=== PATIENT | male | born 1985 | race Caucasian/White ===

== ENCOUNTER 2016-12-14 10:49 | Emergency (ER) | payer OTHER ==
[~2016-12-14] VITALS: Ht 177.8 cm; Wt 72.3 kg
[2016-12-14 10:57] VITALS: TEMP 36.5; Ht 177.8 cm; Wt 72.3 kg
[2016-12-14] MEDS ORDERED: QUET1TAB32 PO (11:45)
[2016-12-14] MEDS ORDERED: BUPR-79 PO (11:45)
[2016-12-14] MEDS ORDERED: MoRPHine SULFATE 4 MG/ML 1 ML CARP\\VIAL IV STA ×2 (11:46→14:47)
[2016-12-14] MEDS ORDERED: ONDANSETRON INJ 2 MG/ML 2 ML VIAL IV STA (11:46)
[2016-12-14 11:49] LABS: URINE APPEARANCE CLEAR (CLEAR); URINE BILIRUBIN NEG (NEG); URINE COLOR YELLOW; URINE NITRITE NEG (NEG); URINE SPECIFIC GRAVITY 1.016 (1.000-1.030); UROBILINOGEN NEG (NEG); ZZUR CULT IF INDIC CLEAN CATCH NO
[2016-12-14 11:58] LABS: MANUAL MICROSCOPIC REQUIRED? NO; REVIEW REQ? NO
[2016-12-14] MEDS ORDERED: OPTIRAY 320 IV PRN (12:00)
[2016-12-14 12:01] LABS: HEMATOCRIT 41.3 % (42-52); MEAN CELL VOLUME 83.4 fL (80-100); MEAN CORPUSCULAR HEMOGLOBIN 30.3 pg (25-34); MEAN CORPUSCULAR HGB CONC 36.3 g/dl (32-36); MEAN PLATELET VOLUME 9.8 fL (7.4-10.4); PLATELET COUNT 215 K/uL (130-400); RED BLOOD COUNT 4.95 M/uL (4.7-6.1); WHITE BLOOD COUNT 5.02 K/uL (4.8-10.8)
[2016-12-14 12:20] LABS: BUN/CREATININE RATIO 20.9 (10-20); CREATININE 1.6 mg/dl (0.60-1.40); POTASSIUM 5.9 mmol/L (3.5-5.1)
[2016-12-14 12:21] VITALS: O2SAT 100
[2016-12-14 12:21] LABS: CALCIUM 9.8 mg/dl (8.5-10.1)
[2016-12-14] MEDS ORDERED: NURSING VERBAL MED ORDER ONE (12:30)
[2016-12-14 12:38] LABS: BASO % 0.2 %; BASO ABS # 0.01 K/uL (0-0.2); COMPLETE YES; EOS % 3.8 %; IG% 0.2 %; LYMPH ABS # 2.71 K/uL (1.2-3.4); MONO % 8.6 %; NEUT % 33.2 %
[2016-12-14] MEDS ORDERED: SODIUM CHLORIDE 0.9% 1000ML 1,000 ML IV ONE ×2 (12:45→15:00)
--- NOTE | 2016-12-14 14:31 | DIAGNOSTIC IMAGING REPORT ---
CT ABD/PELVIS IV AND ORAL CONT CLINICAL HISTORY: L sided abd pain COMPARISON STUDY: None. TECHNIQUE: Following the IV administration of 93 mL of Optiray-320, CT scan of the abdomen and pelvis was performed from the lung bases to the proximal femurs. Images are reviewed in the axial, sagittal, and coronal planes. IV contrast was administered without complication. CT DOSE: 295.20 mGy.cm FINDINGS: Lower chest: There are mild basilar atelectatic changes. Liver: The contrast-enhanced liver is normal in size, contour, and attenuation. There is no intrahepatic biliary ductal dilatation. The hepatic veins and portal veins are patent. Gallbladder: Unremarkable. Spleen: Normal in size and attenuation. Pancreas: Unremarkable. Adrenal glands: Unremarkable. Kidneys: There is symmetric renal cortical enhancement. The kidneys are normal in size without hydronephrosis. Bowel: There are no transition zones indicate bowel obstruction. There is no evidence of acute diverticulitis. The appendix is borderline thickened measuring 7 mm. The lumen contains contrast and there are no periappendiceal inflammatory changes. This study is felt to be negative for acute appendicitis. Peritoneum: There is no intraperitoneal free air or abdominal ascites. Vasculature: The abdominal aorta is normal in course and caliber. Adenopathy: There are mildly prominent ileocolic lymph nodes, likely reactive. Pelvic viscera: The bladder, and pelvic viscera are unremarkable. Skeletal structures: No destructive osseous lesions are seen. IMPRESSION: 1. No evidence of bowel obstruction. No evidence of free air 2. No evidence of acute appendicitis. No evidence of acute diverticulitis 3. Mildly prominent ileocolic lymph nodes likely reactive Electronically signed by: Marco Amato M.D. 12/14/2016 2:29 PM Dictated Date/Time: 12/14/2016 2:24 PM
[2016-12-14] MEDS ORDERED: ONDA4TAB46 PO (16:25)
[2016-12-14 16:36] VITALS: BP 100/62; PULSE 73; O2SAT 98
--- NOTE | 2016-12-14 19:53 | EMERGENCY ROOM VISIT NOTE ---
ED Visit Note First contact with patient: 11:32 Chief Complaint: Abdominal pain. History of Present Illness: Mr. Licona is a 31 year-old male who ambulates into the ED complaining of left sided periumbilical abdominal pain. Historically patient reports no significant past medical history or abdominal surgeries. Patient reports a acute onset of cramping pain just inferior and left lateral to the umbilicus that started approximately 7 days ago. Since that time the pain has been constant but has waxed and waned in intensity. He currently rates his discomfort 6/10. The pain is nonradiating. He has not identified any aggravating or alleviating factors related to the pain. He has not taken any medications for pain prior to arrival at the hospital. Associated with his pain he reports he has been nauseated and has had a few episodes of vomiting every day and early in the course of his pain he had a few episodes of brown watery stools. Patient denies fevers, chills, sweats, skin eruptions, skin color changes, upper respiratory tract symptoms, shortness of breath, chest pain, constipation , rectal bleeding, black/tarry stools, urinary symptoms, hematuria, back/flank pain. Review of Systems: As noted above in history of present illness. All body systems were reviewed and found to be negative as noted above. Past Medical History: Unspecified right hand surgery. Current Medications: Seroquel, Wellbutrin. Allergies to Medications: Patient denies. Social History: Patient is currently employed; he feels safe in his home environment; he admits to tobacco and alcohol use. Physical Examination: Vital Signs: Date Time Temp Pulse Resp B/P Pulse Ox O2 Delivery O2 Flow Rate FiO2 12/14/16 16:36 73 18 100/62 98 12/14/16 15:46 71 16 93/58 99 Room Air 12/14/16 15:03 74 16 103/64 99 Room Air 12/14/16 14:38 74 16 83/51 99 Room Air 12/14/16 13:52 76 16 97/59 97 Room Air 12/14/16 12:25 79 12/14/16 12:21 100 Room Air 12/14/16 12:19 67 19 94/61 100 Room Air 73 93/60 83 90/61 12/14/16 12:08 82 18 88/55 98 76/37 12/14/16 10:57 36.5 89 20 85/47 97 Room Air GENERAL: 31-year-old male in mild distress due to pain, nontoxic-appearing, afebrile and hemodynamically stable. NEUROLOGICAL: Awake, alert and oriented to person, place and time. Answering questions appropriately and following commands. Normal gait. Good hand eye coordination. SKIN: Warm, dry and pink. No soft tissue eruptions or trauma noted. HEENT: Atraumatic and normocephalic. PERRL. Sclera white and conjunctiva pink. Oral cavity moist and pink. Pharynx is nonerythematous or edematous. Speech normal. No lymphadenopathy. Trachea midline. No jugular venous distention. BACK: No tenderness over the bony spine. No CVA tenderness. THORAX: Lungs sounds are clear to auscultation and equal bilaterally with symmetrical chest wall. No wheezing, rales or rhonchi. No crepitus, tenderness , subcutaneous air or deformities noted. HEART: Regular rate and rhythm. No gallops, rubs or murmurs are appreciated. ABDOMEN: Flat and firm with mild tenderness just inferior to the umbilicus and in the left lower quadrant. Decreased bowel sounds in all quadrants. No guarding, rigidity or organomegaly. EXTREMITIES: Moves all extremities well on command and with purpose. All distal neurovascular statuses are intact and equal bilaterally. ED Course: Patient is assessed as noted above. Laboratory Testing: Test 12/14/16 11:35 12/14/16 11:50 Range/Units Urine Color YELLOW Urine Appearance CLEAR CLEAR Urine pH 5.0 4.5-7.5 Urine Specific [place] 1.016 1.000-1.030 Urine Protein NEG NEG Urine Glucose (UA) NEG NEG Urine Ketones NEG NEG Urine Occult Blood NEG NEG Urine Nitrite NEG NEG Urine Bilirubin NEG NEG Urine Urobilinogen NEG NEG Urine Leukocyte Esterase NEG NEG White Blood Count 5.02 4.8-10.8 K/uL Red Blood Count 4.95 4.7-6.1 M/uL Hemoglobin 15.0 14.0-18.0 g/dL Hematocrit 41.3 42-52 % Mean Corpuscular Volume 83.4 80-100 fL Mean Corpuscular Hemoglobin 30.3 25-34 pg Mean Corpuscular Hemoglobin Concent 36.3 32-36 g/dl Platelet Count 215 130-400 K/uL Mean Platelet Volume 9.8 7.4-10.4 fL Neutrophils (%) (Auto) 33.2 % Lymphocytes (%) (Auto) 54.0 % Monocytes (%) (Auto) 8.6 % Eosinophils (%) (Auto) 3.8 % Basophils (%) (Auto) 0.2 % Neutrophils # (Auto) 1.67 1.4-6.5 K/uL Lymphocytes # (Auto) 2.71 1.2-3.4 K/uL Monocytes # (Auto) 0.43 0.11-0.59 K/uL Eosinophils # (Auto) 0.19 0-0.5 K/uL Basophils # (Auto) 0.01 0-0.2 K/uL RDW Standard Deviation 37.9 36.4-46.3 fL RDW Coefficient of Variation 12.4 11.5-14.5 % Immature Granulocyte % (Auto) 0.2 % Immature Granulocyte # (Auto) 0.01 0.00-0.02 K/uL Sodium Level 130 136-145 mmol/L Potassium Level 5.9 3.5-5.1 mmol/L Chloride Level 97 98-107 mmol/L Carbon Dioxide Level 26 21-32 mmol/L Anion Gap 7.0 3-11 mmol/L Blood Urea Nitrogen 34 7-18 mg/dl Creatinine 1.60 0.60-1.40 mg/dl Est Creatinine Clear Calc Drug Dose 69.0 ml/min Estimated GFR () 66.0 Estimated GFR (Non- 57.0 BUN/Creatinine Ratio 20.9 10-20 Random Glucose 84 70-99 mg/dl Calcium Level 9.8 8.5-10.1 mg/dl Total Bilirubin 0.7 0.2-1 mg/dl Aspartate Amino Transf (AST/SGOT) 32 15-37 U/L Alanine Aminotransferase (ALT/SGPT) 30 12-78 U/L Alkaline Phosphatase 73 45-117 U/L Total Protein 8.2 6.4-8.2 gm/dl Albumin 4.1 3.4-5.0 gm/dl Globulin 4.1 2.5-4.0 gm/dl Albumin/Globulin Ratio 1.0 0.9-2 Lipase 165 73-393 U/L Contrast abdominal/pelvic CT: Was reviewed by myself and read by the radiologist showing no evidence of bowel obstruction, free air, acute appendicitis, acute diverticulitis. Mild prominent ileocolic lymph nodes likely reactive. Patient was hydrated with 2 L normal saline and he initially received a total of 8 mg of morphine IV and 4 mg of Zofran IV. Patient was reassessed multiple times during his stay in the emergency department. Patient's case was reviewed with Dr. Robles; we agreed on diagnostic approach, treatment, disposition and plan. Patient was educated about today's findings and instructed on his treatment plan ; he verbalized understanding and agreement with this plan. Clinical Impression: Dehydration. Abdominal pain. Hyponatremia. Hyperkalemia. Renal insufficiency. Decision-Making: Initially my differential diagnosis I considered bowel obstruction, appendicitis, diverticulitis, constipation and other causes. Disposition: Patient discharged home in stable condition accompanied by friends ; prior to departure he was reassessed and subjectively reported he was pain and symptom-free. Just prior to discharge he was Trilone food and did not have any return of abdominal pain, nausea or vomiting. Plan: Patient was encouraged use 650 mg of acetaminophen every 6 hours as needed for pain. Patient was prescribed Zofran 4 mg every 6 hours as needed for nausea/vomiting. Patient is encouraged to bland diet and stay well hydrated. Patient was encouraged to follow-up with personal physician for recheck in 1-2 days. Patient was encouraged return the ED for worsening symptoms, fevers, or any new/ concerning symptoms.
[2016-12-24] MEDS ORDERED: OMEP40CA41 PO (15:47)
[2016-12-24] MEDS ORDERED: HYD10 PO ×2 (15:47)
[2016-12-24] MEDS ORDERED: FLUD0.1T PO (15:47)
== END 2016-12-14 16:39 | disposition home or self-care (01) ==
LOC: C.EDB 10:50 → C.EDA 16:39
DX: E86.0 Dehydration (principal); R10.9 Unspecified abdominal pain; E87.1 Hypo-osmolality and hyponatremia; E87.5 Hyperkalemia; N28.9 Disorder of kidney and ureter, unspecified; Z79.899 Other long term (current) drug therapy; Z72.0 Tobacco use

== ENCOUNTER 2016-12-17 17:09 | Inpatient (IN) | payer OTHER ==
[~2016-12-17] VITALS: Ht 177.8 cm; Wt 70.8 kg
[~2016-12-17 17:09] MED LIST: BUPR-79 PO; ONDA4TAB46 PO; QUET1TAB32 PO
[2016-12-17] MEDS ORDERED: SODIUM CHLORIDE 0.9% 1000ML 1,000 ML IV STA ×3 (18:13→19:33)
[2016-12-17] MEDS ORDERED: PROMETHAZINE HCL INJ 25 MG/ML 1 ML VIAL IV STA (18:13)
[2016-12-17] MEDS ORDERED: DICYCLOMINE HCL 10 MG/ML 2 ML AMP IM ONE (18:15)
--- NOTE | 2016-12-17 18:24 | EMERGENCY ROOM VISIT NOTE ---
History Report prepared by Cristela: Ale Muñoz Under the Supervision of: Dr. Edwin Wooten M.D. First contact with patient: 18:11 Chief Complaint: ABDOMINAL PAIN Stated Complaint: ABD PAIN History of Present Illness The patient is a 31 year old male who presents to the Emergency Room with complaints of persistent diffuse abdominal pain that began 9 days ago. He currently rates his discomfort as a 6/10 in severity describing his discomfort as a cramping pain. The patient states that he was evaluated in the emergency department 4 days ago for his discomfort and states that he was discharged with nausea medication. He associates nausea, vomiting, diarrhea, and dehydration with his symptoms today. The patient denies any fever, hematemesis, hematochezia or melena. He denies any sick contacts. The patient states that he was recently started on Seroquel and Wellbutrin and states that his symptoms began after starting the new medications. Per records the patient's CT scan of the abdomen and pelvis on 12/15 showed ileocolic lymph nodes, but no appendicitis, diverticulitis, or bowel obstruction was noted. The patient's white blood cell count was normal. Source of History: patient Onset: 9 days ago Position: abdomen Symptom Intensity: 6/10 Quality: cramping Timing: other (persistent) Associated Symptoms: + nausea, + vomiting, + diarrhea, No fevers, No melena , No hematochezia Note: Associated Symptoms: dehydration Review of Systems See HPI for pertinent positives & negatives. A total of 10 systems reviewed and were otherwise negative. Past Medical & Surgical Medical Problems: (1) No active medical problems Family History Cancer Diabetes mellitus FH: heart disease Social History Smoking Status: Current Every Day Smoker Alcohol Use: occasionally Marital Status: single Occupation Status: employed Current/Historical Medications Scheduled Bupropion (Wellbutrin Sr), 150 MG PO QAM Quetiapine Fumarate (Seroquel), 50 MG PO HS Scheduled PRN Ondansetron Hcl (Zofran), 4 MG PO Q6H PRN for Nausea or Vomiting Allergies Coded Allergies: No Known Allergies (Unverified , 12/17/16) Physical Exam Vital Signs Date Time Temp Pulse Resp B/P (MAP) Pulse Ox O2 Delivery O2 Flow Rate FiO2 12/17/16 19:54 69 12/17/16 19:49 68 18 86/52 100 Room Air 12/17/16 17:16 36.8 117 18 93/56 98 Room Air Physical Exam GENERAL: Patient is in no acute distress. HEENT: No acute trauma, normocephalic atraumatic, mucous membranes moist, no nasal congestion, no scleral icterus. NECK: No stridor, no adenopathy, no meningismus, trachea is midline. LUNGS: Clear to auscultation bilaterally, no wheeze, no rhonchi, breath sounds equal. HEART: Without murmurs gallops or rubs, regular rate and rhythm. ABDOMEN: Tender in lower abdomen bilaterally. Soft, bowel sounds positive, no hernias, no peritonitis. EXTREMITIES: No cyanosis or edema, full range of motion of all the joints without pain or difficulty, no signs for acute trauma. NEUROLOGIC: Oriented x 3, no acute motor or sensory deficits, no focal weakness. SKIN: No rash, no jaundice, no diaphoresis. Medical Decision & Procedures ER Provider Diagnostic Interpretation: X-ray results as stated below per interpretation by me and the radiologist: PA CHEST WITH ABDOMINAL SERIES CLINICAL HISTORY: Left-sided abdominal pain. FINDINGS: A PA chest radiograph is obtained. The examination is degraded by apical lordotic positioning. The cardiomediastinal silhouette is unremarkable. A bone island or calcified granuloma projects over the right lower chest. No airspace consolidation, pleural effusion, or pneumothorax is seen. The bony thorax is grossly intact. Supine and erect abdominal radiographs are correlated with abdominal CT dated 12/14/2016. There is a nonobstructed abdominal bowel gas pattern noting moderate colonic fecal retention. Residual enteric contrast is noted in the colon. No intraperitoneal free air is seen. There are no abnormal abdominal calcifications. The lumbosacral spine and bony pelvis appear intact. IMPRESSION: 1. No active disease in the chest. 2. Nonobstructed abdominal bowel gas pattern noting moderate constipation. Electronically signed by: Edwin Juárez M.D. 12/17/2016 7:12 PM Dictated Date/Time: 12/17/2016 7:09 PM Laboratory Results 12/17/16 18:25 Red Blood Count 4.73, Mean Corpuscular Volume 81.0, Mean Corpuscular Hemoglobin 30.7, Mean Corpuscular Hemoglobin Concent 37.9, Mean Platelet Volume 9.3, Neutrophils (%) (Auto) 34.3, Lymphocytes (%) (Auto) 52.8, Monocytes (%) (Auto) 8.3, Eosinophils (%) (Auto) 4.1, Basophils (%) (Auto) 0.5, Neutrophils # (Auto) 2.28, Lymphocytes # (Auto) 3.50, Monocytes # (Auto) 0.55, Eosinophils # (Auto) 0.27, Basophils # (Auto) 0.03 12/17/16 18:25 Test 12/17/16 18:25 12/17/16 19:09 White Blood Count 6.63 K/uL (4.8-10.8) Red Blood Count 4.73 M/uL (4.7-6.1) Hemoglobin 14.5 g/dL (14.0-18.0) Hematocrit 38.3 % (42-52) Mean Corpuscular Volume 81.0 fL (80-100) Mean Corpuscular Hemoglobin 30.7 pg (25-34) Mean Corpuscular Hemoglobin Concent 37.9 g/dl (32-36) Platelet Count 241 K/uL (130-400) Mean Platelet Volume 9.3 fL (7.4-10.4) Neutrophils (%) (Auto) 34.3 % Lymphocytes (%) (Auto) 52.8 % Monocytes (%) (Auto) 8.3 % Eosinophils (%) (Auto) 4.1 % Basophils (%) (Auto) 0.5 % Neutrophils # (Auto) 2.28 K/uL (1.4-6.5) Lymphocytes # (Auto) 3.50 K/uL (1.2-3.4) Monocytes # (Auto) 0.55 K/uL (0.11-0.59) Eosinophils # (Auto) 0.27 K/uL (0-0.5) Basophils # (Auto) 0.03 K/uL (0-0.2) RDW Standard Deviation 34.8 fL (36.4-46.3) RDW Coefficient of Variation 11.8 % (11.5-14.5) Immature Granulocyte % (Auto) 0.0 % Immature Granulocyte # (Auto) 0.00 K/uL (0.00-0.02) Red Blood Cell Morphology Unremarkable Urine Color YELLOW Urine Appearance CLEAR (CLEAR) Urine pH 7.0 (4.5-7.5) Urine Specific [place] 1.017 (1.000-1.030) Urine Protein NEG (NEG) Urine Glucose (UA) NEG (NEG) Urine Ketones NEG (NEG) Urine Occult Blood NEG (NEG) Urine Nitrite NEG (NEG) Urine Bilirubin NEG (NEG) Urine Urobilinogen NEG (NEG) Urine Leukocyte Esterase NEG (NEG) Anion Gap 6.0 mmol/L (3-11) Est Creatinine Clear Calc Drug Dose 53.0 ml/min Estimated GFR () 50.4 Estimated GFR (Non- 43.5 BUN/Creatinine Ratio 16.6 (10-20) Calcium Level 9.5 mg/dl (8.5-10.1) Total Bilirubin 0.6 mg/dl (0.2-1) Aspartate Amino Transf (AST/SGOT) 35 U/L (15-37) Alanine Aminotransferase (ALT/SGPT) 28 U/L (12-78) Alkaline Phosphatase 77 U/L (45-117) Total Protein 8.1 gm/dl (6.4-8.2) Albumin 4.4 gm/dl (3.4-5.0) Globulin 3.7 gm/dl (2.5-4.0) Albumin/Globulin Ratio 1.2 (0.9-2) Lipase 169 U/L (73-393) Lactic Acid Level 0.7 mmol/L (0.4-2.0) Laboratory results reviewed by me. Medications Administered Medications (Trade) Dose Ordered Sig/Juan F Route Start Time Stop Time Status Last Admin Dose Admin Sodium Chloride 1,000 ml @ 200 mls/hr Q5H STAT IV 12/17/16 18:13 12/17/16 23:12 12/17/16 18:35 200 MLS/HR Sodium Chloride 1,000 ml @ 999 mls/hr Q1H1M STAT IV 12/17/16 18:13 12/17/16 19:13 DC 12/17/16 18:35 999 MLS/HR Dicyclomine HCl (Bentyl Inj) 20 mg NOW ONCE IM 12/17/16 18:15 12/17/16 18:16 DC 12/17/16 18:35 20 MG Promethazine HCl 12.5 mg/Sodium Chloride 50.5 ml @ 202 mls/hr NOW ONCE IV 12/17/16 18:45 12/17/16 18:59 DC 12/17/16 18:57 202 MLS/HR Sodium Chloride 1,000 ml @ 999 mls/hr Q1H1M STAT IV 12/17/16 19:33 12/17/16 20:33 12/17/16 19:45 999 MLS/HR Morphine Sulfate (MoRPHine SULFATE INJ) 4 mg NOW STAT IV 12/17/16 19:39 12/17/16 19:40 DC 12/17/16 19:47 4 MG ECG Indication: other (high potassium) Rate (beats per minute): 65 Rhythm: normal sinus Findings: no acute ischemic change, no ectopy ED Course 1811: The patient was evaluated in room C8. A complete history and physical exam was performed. 1812: Ordered Sodium Chloride 1000 ml @ 999 mls/hr IV, Sodium Chloride 1000 ml @ 200 mls/hr IV. 1814: Ordered Bentyl Inj 20 mg IM. 1844: Ordered Promethazine HCl 12.5 mg/Sodium Chloride 50.5 ml @ 202 mls/hr IV. 1932: Ordered Sodium Chloride 1000 ml @ 999 mls/hr IV. 1936: I reevaluated the patient and he is resting comfortably. I discussed the exam findings with him and I discussed the treatment plan. He verbalized complete understanding and agreement. He will be evaluated for further treatment. 1938: Ordered Morphine Sulfate 4 mg IV. 1944: I discussed the patients case with Josefa Galloway. He is going to evaluate the patient for further treatment. Medical Decision The patient is a 31 year old male who presents to the ED with complaints of abdominal pain. Differential diagnoses considered include medication reaction, viral illness, dehydration, electrolyte imbalance, UTI, pancreatitis, biliary colic, appendicitis, diverticulitis, food borne illness. There is no leukocytosis or concerning anemia. Renal panel testing shows hyperkalemia and acute renal failure. No hepatitis or pancreatitis. Urinalysis does not show evidence for infection. Lactic acid level is not elevated making sepsis and or bowel ischemia less likely. Abdominal series shows some possible constipation, no pneumonia, free air or bowel obstruction. On exam, the patient was not toxic or febrile. He did not have peritonitis. The patient received IV saline, he was given a second bolus of IV saline. He received IV Phenergan for nausea, IM Bentyl for the abdominal spasms. He eventually received some IV morphine for additional pain control. Given his failed outpatient treatment, given the acute renal failure, given the hyperkalemia, admission/observation was felt warranted. I spoke to case management and the patient. The on-call hospitalist was consulted. Medication Reconciliation: I attest that I have personally reviewed the patient' s current medication list. Blood Pressure Screening: Patient was found to have normal blood pressure on screening and does not require follow-up. Consults Time Called: 1939 Consulting Physician: Josefa Galloway Returned Call: 1944 I discussed the patients case with Josefa Galloway. He is going to evaluate the patient for further treatment. Impression Primary Impression: Acute renal failure Additional Impressions: Vomiting and diarrhea Hyperkalemia Scribe Attestation The scribe's documentation has been prepared under my direction and personally reviewed by me in its entirety. I confirm that the note above accurately reflects all work, treatment, procedures, and medical decision making performed by me. Departure Information Dispostion Being Evaluated By Hospitalist Referrals No Doctor, Assigned (PCP) Problem Qualifiers
[2016-12-17 18:34] LABS: HEMATOCRIT 38.3 % (42-52); MEAN CORPUSCULAR HEMOGLOBIN 30.7 pg (25-34); MEAN CORPUSCULAR HGB CONC 37.9 g/dl (32-36); MEAN PLATELET VOLUME 9.3 fL (7.4-10.4); PLATELET COUNT 241 K/uL (130-400); RED BLOOD COUNT 4.73 M/uL (4.7-6.1); WHITE BLOOD COUNT 6.63 K/uL (4.8-10.8)
[2016-12-17 18:36] LABS: URINE APPEARANCE CLEAR (CLEAR); URINE BILIRUBIN NEG (NEG); URINE COLOR YELLOW; URINE NITRITE NEG (NEG); URINE SPECIFIC GRAVITY 1.017 (1.000-1.030); UROBILINOGEN NEG (NEG); ZZUR CULT IF INDIC CLEAN CATCH NO
[2016-12-17] MEDS ORDERED: PROMETHAZINE HCL INJ 12.5 MG in SODIUM CHLORIDE 0.9% 50ML 50 ML IV ONE (18:45)
[2016-12-17 18:50] LABS: MANUAL MICROSCOPIC REQUIRED? NO; REVIEW REQ? NO
--- NOTE | 2016-12-17 19:13 | DIAGNOSTIC IMAGING REPORT ---
PA CHEST WITH ABDOMINAL SERIES CLINICAL HISTORY: Left-sided abdominal pain. FINDINGS: A PA chest radiograph is obtained. The examination is degraded by apical lordotic positioning. The cardiomediastinal silhouette is unremarkable. A bone island or calcified granuloma projects over the right lower chest. No airspace consolidation, pleural effusion, or pneumothorax is seen. The bony thorax is grossly intact. Supine and erect abdominal radiographs are correlated with abdominal CT dated 12/14/2016. There is a nonobstructed abdominal bowel gas pattern noting moderate colonic fecal retention. Residual enteric contrast is noted in the colon. No intraperitoneal free air is seen. There are no abnormal abdominal calcifications. The lumbosacral spine and bony pelvis appear intact. IMPRESSION: 1. No active disease in the chest. 2. Nonobstructed abdominal bowel gas pattern noting moderate constipation. Electronically signed by: Edwin Juárez M.D. 12/17/2016 7:12 PM Dictated Date/Time: 12/17/2016 7:09 PM
[2016-12-17 19:23] LABS: ALB/GLOB RATIO 1.2 (0.9-2); BUN/CREATININE RATIO 16.6 (10-20); CALCIUM 9.5 mg/dl (8.5-10.1); POTASSIUM 6.2 mmol/L (3.5-5.1)
[2016-12-17 19:39] LABS: BASO % 0.5 %; BASO ABS # 0.03 K/uL (0-0.2); COMPLETE YES; EOS % 4.1 %; LYMPH % 52.8 %; MONO % 8.3 %; NEUT % 34.3 %
[2016-12-17] MEDS ORDERED: MoRPHine SULFATE 4 MG/ML 1 ML CARP\\VIAL IV STA (19:39)
[2016-12-17 20:13] LABS: MAGNESIUM 2.1 mg/dl (1.8-2.4)
[2016-12-17] MEDS ORDERED: CALCIUM GLUCONATE 10% 1,000 MG in SODIUM CHLORIDE 0.9% 50ML 50 ML IV ONE (20:15)
[2016-12-17] MEDS ORDERED: DEXTROSE 50% 50 ML SYR IV ONE ×2 (20:30→22:15)
[2016-12-17] MEDS ORDERED: INSULIN REGULAR 10 UNITS in SYRINGE 9.9 ML IV ONE (20:31)
[2016-12-17 20:46] VITALS: BMI 22.0
[2016-12-17 22:04] LABS: PARTIAL THROMBOPLASTIN RATIO 1.4
[2016-12-17] MEDS ORDERED: NALOXONE HCL 0.4 MG/1 ML VIAL/CARP ONE ×2 (22:07→22:11)
[2016-12-17] MEDS ORDERED: NALOXONE HCL 0.4 MG/1 ML VIAL/CARP IV STA (22:11)
[2016-12-17] MEDS ORDERED: THIAMINE HCL 100 MG/ML 2 ML VIAL IV STA (22:16)
[2016-12-17] MEDS ORDERED: HYDROmorphone INJ 1 MG/ML SYR IV PRN (22:30)
[2016-12-17] MEDS ORDERED: TRAMADOL HCL 50 MG TAB PO PRN (22:30)
[2016-12-17] MEDS ORDERED: NITROGLYCERIN 0.4 MG SL PER TAB CHARGE SL PRN (22:30)
[2016-12-17] MEDS ORDERED: ACETAMINOPHEN 325 MG TAB PO PRN (22:30)
[2016-12-17] MEDS ORDERED: ONDANSETRON INJ 2 MG/ML 2 ML VIAL IV PRN (22:30)
[2016-12-17] MEDS ORDERED: OXYCODONE/ACETAMINOPHEN 5-325 TAB PO PRN (22:45)
[2016-12-17 22:59] LABS: BUN/CREATININE RATIO 18.8 (10-20); CREATININE 1.6 mg/dl (0.60-1.40)
[2016-12-17 23:19] LABS: BENZODIAZEPINE, URINE NEG (NEG); COCAINE,URINE NEG (NEG); PHENCYCLIDINE, URINE NEG (NEG)
--- NOTE | 2016-12-17 23:32 | DIAGNOSTIC IMAGING REPORT ---
CT SCAN OF THE BRAIN WITHOUT IV CONTRAST CLINICAL HISTORY: Headache. Change in mental status. COMPARISON STUDY: No priors. TECHNIQUE: Unenhanced axial CT scan of the brain is performed from the vertex to the skull base. Automated dose control exposure was utilized. CT DOSE: 614.27 mGy.cm FINDINGS: Brain parenchyma: The brain parenchyma is normal in appearance. There is no hemorrhage, mass effect, or evidence of acute territorial ischemia by CT criteria. Henry-white matter is preserved. No extra-axial fluid collection is seen. Ventricles, sulci, cisterns: Normal in configuration. Intracranial vasculature: The visualized intracranial vasculature at the skull base is normal in appearance. Calvarium: Unremarkable. Sinuses and mastoids: The visualized paranasal sinuses are clear. The mastoid air cells are well pneumatized. Orbits: The bony orbits are grossly intact. IMPRESSION: No acute intracranial abnormality. Electronically signed by: Edwin Juárez M.D. 12/17/2016 11:31 PM Dictated Date/Time: 12/17/2016 11:29 PM
[2016-12-17 23:45] VITALS: BP 93/55; PULSE 60; O2SAT 100
[2016-12-17 23:52] LABS: POTASSIUM 4.8 mmol/L (3.5-5.1)
[2016-12-18] VITALS (11 sets, daily range): BP systolic 77–101; BP diastolic 41–56; PULSE 59–80; TEMP 34.8–37.1; O2SAT 94–100
[2016-12-18] MEDS ORDERED: THIAMINE HCL INJ 100 MG in SYRINGE 9 ML IV STA (00:19)
[2016-12-18] MEDS ORDERED: DOCUSATE SODIUM 100 MG CAP PO ONE (02:58)
[2016-12-18] MEDS ORDERED: POLYETHYLENE (MIRALAX) 17 GM PACK PO ONE (02:58)
[2016-12-18] MEDS ORDERED: POLYETHYLENE (MIRALAX) 17 GM PACK PO PRN (03:00)
[2016-12-18] MEDS: TRAMADOL HCL 50 MG TAB PO PRN ×2 (06:20→14:23)
[2016-12-18] MEDS ORDERED: SODIUM CHLORIDE 0.9% 1000ML 1,000 ML IV ONE (06:30)
[2016-12-18 07:14] LABS: BASO % 0.5 %; BASO ABS # 0.03 K/uL (0-0.2); COMPLETE YES; EOS % 3.7 %; HEMATOCRIT 35.9 % (42-52); LYMPH % 44.4 %; LYMPH ABS # 2.55 K/uL (1.2-3.4); MEAN CELL VOLUME 81.2 fL (80-100); MEAN CORPUSCULAR HEMOGLOBIN 29.2 pg (25-34); MEAN CORPUSCULAR HGB CONC 35.9 g/dl (32-36); MEAN PLATELET VOLUME 9.8 fL (7.4-10.4); MONO % 9.8 %; NEUT % 41.6 %; PLATELET COUNT 216 K/uL (130-400); RED BLOOD COUNT 4.42 M/uL (4.7-6.1); WHITE BLOOD COUNT 5.74 K/uL (4.8-10.8)
[2016-12-18] MEDS: BuPROPion SR 150 MG TABCR PO SCH (07:51)
[2016-12-18 08:26] LABS: BUN/CREATININE RATIO 18.6 (10-20); CALCIUM 8.5 mg/dl (8.5-10.1); CREATININE 1.7 mg/dl (0.60-1.40); POTASSIUM 6.9 mmol/L (3.5-5.1)
[2016-12-18] MEDS ORDERED: SODIUM POLYST. SULF SUSP 15G/60ML PO STA ×2 (08:38→15:23)
[2016-12-18] MEDS ORDERED: HYDROmorphone INJ 0.5 MG/0.5 ML SYR IV PRN (08:45)
[2016-12-18] MEDS ORDERED: DOCUSATE SODIUM 100 MG CAP PO SCH (09:00)
[2016-12-18] MEDS: SODIUM CHLORIDE 0.9% 1000ML 1,000 ML IV SCH ×3 (10:00→19:44)
[2016-12-18] MEDS ORDERED: HYDROmorphone INJ 1 MG/ML SYR IV PRN (10:00)
[2016-12-18] MEDS: HYDROmorphone INJ 1 MG/ML SYR IV PRN ×3 (10:01→21:27)
--- NOTE | 2016-12-18 11:07 | HISTORY & PHYSICAL EXAMINATION ---
DATE OF ADMISSION: 12/17/2016 PRIMARY CARE DOCTOR: from [place], [place] Px cannot recall name. CHIEF COMPLAINT: Abdominal pain. HISTORY OF PRESENT ILLNESS: History was obtained from patient records and patient's landlady, Miss Amarilis Aguirre. Mhx significant for past substance abuse, tobacco abuse and schizophrenia. About a week ago, patient noted diffuse abdominal pain, achy, with nausea and vomiting, initially with brown watery stools. Px was seen at the Emergency Room a few days ago. CT abdomen and pelvis showed no bowel obstruction, mildly prominent ileocolic lymph nodes. No colitis. Potassium was noted to be 5.9, sodium 130 and creatinine of 1.6. Patient was discharged home, had intractable pain at home. Patient returned to the Emergency Room. Patient's landlady suspects recurrence of opioid addictive tendencies. At the Emergency Room, the patient was noted to be disoriented after being given a dose of Morphine: Patient denies chest pain or shortness of breath. He admits to some headache. He denies bladder symptoms, cannot say if he is constipated or having diarrhea. MEDICAL HISTORY: As above. SURGERIES: Hand surgery as per records. HOME MEDICATIONS: Include; Wellbutrin, Seroquel ALLERGIES: No known drug allergies. FAMILY HISTORY: Diabetes and muscular dystrophy as per records. PERSONAL AND SOCIAL HISTORY: A pack a day. He denies alcohol abuse. He was a resident of correction in the past. Construction work. REVIEW OF SYSTEMS: Could not be reliably obtained. PHYSICAL EXAMINATION: VITAL SIGNS: Blood pressure was noted to be 93/56, pulse 68, RR 18, temperature 36.8 and sats 98 on room air. GENERAL: Noted to be disoriented, in no respiratory distress. HEENT: Ozone palpebral conjunctivae. Dry mucosa. NECK: No JVD. supple CHEST: Decreased effort. HEART: Regular rate and rhythm. ABDOMEN: Some distention. No overt tenderness. EXTREMITIES: No edema. no tenderness NEUROLOGIC: No gross focality except for disorientation. LABORATORIES: Hemoglobin was noted to be 14.5, hematocrit 38.3, white cell count 6.6 and platelets 241. Sodium was noted to be 130, potassium 6.2, chloride 99, CO2 25, BUN 30, creatinine 2 and glucose was noted to be 73. Chest and abdomen x-ray : calcified granuloma R chest, nonobstructive bowel gas with moderate constipation. CT of the head; showed no acute intracranial pathology. EKG as per my interpretation: rate 65, normal sinus rhythm, IVCD, peaked T- waves. ASSESSMENT: 1. Acute renal failure, hyperkalemia, hyponatremia mild clinical dehydration worsening abdominal pain secondary to narcotic-induced constipation, history of opiate abuse as per evelyn 2. schizophrenia as per records px recently started back on meds as per evelyn 3. ongoing tobacco abuse. PLAN: PCU calcium gluconate given EKG abn, regular insulin for hyperkalemia. Monitor creatinine response to IV fluids. ff serum sodium May need Nephrology if wo improvement. hold IV narcotics laxative DVT prophylaxis, SCDs. ull code. Patient has given permission to disclose information to his sandrinelady, Miss Amarilis Munguiagler at [phone]. MTDD
--- NOTE | 2016-12-18 12:39 | Progress Note ---
Internal Med Progress Note Date of Service: Dec 18, 2016. Provider Documentation: SUBJECTIVE: awake and alert , complains of ongoing abdominal pain , going to his back asks for pain medication ' no fever or chills OBJECTIVE: Vital Signs-as noted below Exam: General-young male, no sign of distress Eyes-mildly icteric sclera Lungs-CTA, no wheeze or rales Heart-regular S1/S2 Abdomen-abdomen soft, + mid abdomen tenderness , no rebound ,normal bowel sound Extremities-no lower ext edema Neuro-AAO x3, no focal deficit Lab data as noted below. 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 will increase IVF to 200 ml /hr follow PRP Cr improved 2-> 1.7 Nephrology consulted HYPERKALEMIA : possible due to above ordered for Kayexalate ; cont IVF repeat PRP at 1200 monitor in Tele POLYSUBSTANCE ABUSE : hx of drug abuse Urine tx screen + Ecstasy ABDOMINAL PAIN Xray of abdomen moderated constipation no bowel obstruction noted possible due to narcotic pain meds ordered for bowel regimen limit pain meds ELEVATED CPK : CPK elevated 500 pt mentions of lifting heavy wt recently ordered for IVF follow daily level HYPOTHYROIDISM : TSH > 17 started on low dose levothyroxine DVT PROPHYLAXIS low risk SCD and teds Ambulate DISPOSITION Discharge home when medially stable Vital Signs: Date Time Temp Pulse Resp B/P (MAP) Pulse Ox O2 Delivery O2 Flow Rate FiO2 12/18/16 12:00 100 Room Air 12/18/16 11:58 36.8 68 18 92/49 (63) 100 Room Air 12/18/16 08:00 100 Room Air 12/18/16 07:50 36.7 16 77/44 (55) 100 Room Air 12/18/16 04:54 36.7 59 18 88/52 (64) 94 Room Air 12/18/16 04:00 Room Air 12/18/16 03:02 36.7 12/18/16 02:04 34.8 12/17/16 23:55 Room Air 12/17/16 23:45 60 14 93/55 (68) 100 Room Air 12/17/16 23:07 72 16 94/51 96 12/17/16 22:24 70 18 98/54 95 Room Air 12/17/16 20:46 Room Air 12/17/16 19:54 69 12/17/16 19:49 68 18 86/52 100 Room Air 12/17/16 17:16 36.8 117 18 93/56 98 Room Air Lab Results: Results Past 24 Hours Test 12/17/16 18:25 12/17/16 19:09 12/17/16 22:06 12/17/16 22:10 Range/Units White Blood Count 6.63 4.8-10.8 K/uL Red Blood Count 4.73 4.7-6.1 M/uL Hemoglobin 14.5 14.0-18.0 g/dL Hematocrit 38.3 42-52 % Mean Corpuscular Volume 81.0 80-100 fL Mean Corpuscular Hemoglobin 30.7 25-34 pg Mean Corpuscular Hemoglobin Concent 37.9 32-36 g/dl Platelet Count 241 130-400 K/uL Mean Platelet Volume 9.3 7.4-10.4 fL Neutrophils (%) (Auto) 34.3 % Lymphocytes (%) (Auto) 52.8 % Monocytes (%) (Auto) 8.3 % Eosinophils (%) (Auto) 4.1 % Basophils (%) (Auto) 0.5 % Neutrophils # (Auto) 2.28 1.4-6.5 K/uL Lymphocytes # (Auto) 3.50 1.2-3.4 K/uL Monocytes # (Auto) 0.55 0.11-0.59 K/uL Eosinophils # (Auto) 0.27 0-0.5 K/uL Basophils # (Auto) 0.03 0-0.2 K/uL RDW Standard Deviation 34.8 36.4-46.3 fL RDW Coefficient of Variation 11.8 11.5-14.5 % Immature Granulocyte % (Auto) 0.0 % Immature Granulocyte # (Auto) 0.00 0.00-0.02 K/uL Red Blood Cell Morphology Unremarkable Activated Partial Thromboplast Time 36.9 21.0-31.0 SECONDS Partial Thromboplastin Ratio 1.4 Urine Color YELLOW Urine Appearance CLEAR CLEAR Urine pH 7.0 4.5-7.5 Urine Specific [place] 1.017 1.000-1.030 Urine Protein NEG NEG Urine Glucose (UA) NEG NEG Urine Ketones NEG NEG Urine Occult Blood NEG NEG Urine Nitrite NEG NEG Urine Bilirubin NEG NEG Urine Urobilinogen NEG NEG Urine Leukocyte Esterase NEG NEG Sodium Level 130 139 136-145 mmol/L Potassium Level 6.2 4.8 3.5-5.1 mmol/L Chloride Level 99 108 98-107 mmol/L Carbon Dioxide Level 25 23 21-32 mmol/L Anion Gap 6.0 8.0 3-11 mmol/L Blood Urea Nitrogen 33 30 7-18 mg/dl Creatinine 2.00 1.60 0.60-1.40 mg/dl Est Creatinine Clear Calc Drug Dose 53.0 66.3 ml/min Estimated GFR () 50.4 66.0 Estimated GFR (Non- 43.5 57.0 BUN/Creatinine Ratio 16.6 18.8 10-20 Random Glucose 73 38 70-99 mg/dl Calcium Level 9.5 9.0 8.5-10.1 mg/dl Magnesium Level 2.1 1.8-2.4 mg/dl Total Bilirubin 0.6 0.2-1 mg/dl Aspartate Amino Transf (AST/SGOT) 35 15-37 U/L Alanine Aminotransferase (ALT/SGPT) 28 12-78 U/L Alkaline Phosphatase 77 45-117 U/L Troponin I < 0.015 0-0.045 ng/ml Total Protein 8.1 6.4-8.2 gm/dl Albumin 4.4 3.4-5.0 gm/dl Globulin 3.7 2.5-4.0 gm/dl Albumin/Globulin Ratio 1.2 0.9-2 Lipase 169 73-393 U/L Thyroid Stimulating Hormone (TSH) 17.700 0.300-4.500 uIu/ml Free Thyroxine 0.85 0.80-1.60 ng/dl Urine Opiates Screen NEG NEG Urine Methadone, Qualitative NEG NEG Urine Barbiturates NEG NEG Urine Phencyclidine (PCP) Level NEG NEG Ur Amphetamine/Methamphetamine NEG NEG MDMA (Ecstasy) Screen POS NEG Urine Benzodiazepines Screen NEG NEG Urine Cocaine Metabolite NEG NEG Urine Marijuana (THC) NEG NEG Lactic Acid Level 0.7 0.4-2.0 mmol/L Bedside Glucose 81 70-99 mg/dl Osmolality 281 280-300 mOsm/kg Total Creatine Kinase 500 39-308 U/L Test 12/17/16 23:37 12/18/16 00:37 12/18/16 01:06 12/18/16 06:20 Range/Units Bedside Glucose 117 82 70-99 mg/dl Ethyl Alcohol mg/dL < 3.0 0-3 mg/dl White Blood Count 5.74 4.8-10.8 K/uL Red Blood Count 4.42 4.7-6.1 M/uL Hemoglobin 12.9 14.0-18.0 g/dL Hematocrit 35.9 42-52 % Mean Corpuscular Volume 81.2 80-100 fL Mean Corpuscular Hemoglobin 29.2 25-34 pg Mean Corpuscular Hemoglobin Concent 35.9 32-36 g/dl Platelet Count 216 130-400 K/uL Mean Platelet Volume 9.8 7.4-10.4 fL Neutrophils (%) (Auto) 41.6 % Lymphocytes (%) (Auto) 44.4 % Monocytes (%) (Auto) 9.8 % Eosinophils (%) (Auto) 3.7 % Basophils (%) (Auto) 0.5 % Neutrophils # (Auto) 2.39 1.4-6.5 K/uL Lymphocytes # (Auto) 2.55 1.2-3.4 K/uL Monocytes # (Auto) 0.56 0.11-0.59 K/uL Eosinophils # (Auto) 0.21 0-0.5 K/uL Basophils # (Auto) 0.03 0-0.2 K/uL RDW Standard Deviation 34.8 36.4-46.3 fL RDW Coefficient of Variation 11.9 11.5-14.5 % Immature Granulocyte % (Auto) 0.0 % Immature Granulocyte # (Auto) 0.00 0.00-0.02 K/uL Sodium Level 132 136-145 mmol/L Potassium Level 6.9 3.5-5.1 mmol/L Chloride Level 103 98-107 mmol/L Carbon Dioxide Level 23 21-32 mmol/L Anion Gap 6.0 3-11 mmol/L Blood Urea Nitrogen 32 7-18 mg/dl Creatinine 1.70 0.60-1.40 mg/dl Est Creatinine Clear Calc Drug Dose 62.4 ml/min Estimated GFR () 61.4 Estimated GFR (Non- 52.9 BUN/Creatinine Ratio 18.6 10-20 Random Glucose 89 70-99 mg/dl Calcium Level 8.5 8.5-10.1 mg/dl Total Creatine Kinase 486 39-308 U/L Test 12/18/16 06:44 Range/Units Bedside Glucose 103 70-99 mg/dl Microbiology Results 12/18/16 Blood Culture, Received Pending 12/18/16 Blood Culture, Received Pending
[2016-12-18] MEDS: BISACODYL 5 MG TABEC PO SCH (14:16)
[2016-12-18 15:05] LABS: BUN/CREATININE RATIO 16.2 (10-20); CALCIUM 8.7 mg/dl (8.5-10.1); CREATININE 1.7 mg/dl (0.60-1.40); POTASSIUM 7.7 mmol/L (3.5-5.1)
[2016-12-18] MEDS ORDERED: NURSING VERBAL MED ORDER ONE ×2 (15:30→19:00)
[2016-12-18] MEDS: NICOTINE 21 MG/24 HR TDSY TD SCH (17:51)
[2016-12-18 18:41] LABS: BUN/CREATININE RATIO 15.2 (10-20); CALCIUM 8.5 mg/dl (8.5-10.1); CREATININE 1.6 mg/dl (0.60-1.40)
[2016-12-18 18:42] LABS: POTASSIUM 6.9 mmol/L (3.5-5.1)
[2016-12-18] MEDS ORDERED: DEXTROSE 50% 50 ML SYR IV SCH (19:15)
[2016-12-18] MEDS ORDERED: INSULIN HUMAN REGULAR PER UNIT 10 UNITS in SYRINGE 9.9 ML IV SCH (19:20)
[2016-12-18] MEDS: DOCUSATE SODIUM 100 MG CAP PO SCH (19:34)
[2016-12-18] MEDS: QUETIAPINE FUMARATE 25 MG TAB PO SCH (19:35)
[2016-12-18] MEDS ORDERED: DEXTROSE 50% 50 ML SYR ONE (20:17)
[2016-12-18 20:23] LABS: BUN/CREATININE RATIO 14.7 (10-20); CALCIUM 8.4 mg/dl (8.5-10.1); CREATININE 1.6 mg/dl (0.60-1.40)
[2016-12-18 20:25] LABS: POTASSIUM 5.2 mmol/L (3.5-5.1)
[2016-12-19 03:00] VITALS: BP 93/57; PULSE 81; TEMP 37; O2SAT 96
[2016-12-19] MEDS: HYDROmorphone INJ 1 MG/ML SYR IV PRN ×4 (03:05→21:05)
[2016-12-19] MEDS: SODIUM CHLORIDE 0.9% 1000ML 1,000 ML IV SCH ×4 (03:05→20:55)
[2016-12-19] MEDS: LEVOTHYROXINE 25 MCG TAB PO SCH (06:12)
[2016-12-19 06:38] LABS: BUN/CREATININE RATIO 12.7 (10-20); CALCIUM 8.1 mg/dl (8.5-10.1); CREATININE 1.4 mg/dl (0.60-1.40); POTASSIUM 6.9 mmol/L (3.5-5.1)
[2016-12-19] MEDS ORDERED: CALCIUM GLUCONATE 10% 1,000 MG in SODIUM CHLORIDE 0.9% 50ML 50 ML IV STA (06:41)
[2016-12-19] MEDS ORDERED: SODIUM POLYST. SULF SUSP 15G/60ML PO STA (06:42)
[2016-12-19] MEDS ORDERED: DEXTROSE 50% 50 ML SYR IV STA (06:51)
[2016-12-19] MEDS ORDERED: INSULIN HUMAN REGULAR PER UNIT 5 UNITS in SYRINGE 4.95 ML IV STA (06:51)
[2016-12-19 07:11] VITALS: BP 93/47; PULSE 70; TEMP 37; O2SAT 91
[2016-12-19] MEDS: DOCUSATE SODIUM 100 MG CAP PO SCH ×2 (07:25→20:33)
[2016-12-19] MEDS: BISACODYL 5 MG TABEC PO SCH (07:25)
[2016-12-19] MEDS: POLYETHYLENE (MIRALAX) 17 GM PACK PO SCH (07:25)
[2016-12-19] MEDS: NICOTINE 21 MG/24 HR TDSY TD SCH (07:26)
[2016-12-19] MEDS: BuPROPion SR 150 MG TABCR PO SCH (07:26)
[2016-12-19] MEDS ORDERED: NURSING VERBAL MED ORDER ONE (07:45)
[2016-12-19] MEDS ORDERED: DEXTROSE 50% 50 ML SYR IV PRN (07:45)
[2016-12-19] MEDS ORDERED: GLUCAGON FOR INJ 1 MG VIAL SQ PRN (07:45)
[2016-12-19] MEDS ORDERED: GLUCOSE 40% GEL 15 GM TUBE PO PRN (07:45)
[2016-12-19] MEDS: GLUCOSE 10 TABS/TUBE PO PRN (08:29)
[2016-12-19] MEDS ORDERED: FUROSEMIDE INJ 20 MG in SYRINGE 0 ML IV SCH (10:45)
[2016-12-19] MEDS ORDERED: SODIUM POLYST. SULF SUSP 15G/60ML PO ONE (10:45)
[2016-12-19 12:04] VITALS: BP 94/48; PULSE 83; TEMP 37.3; O2SAT 94
[2016-12-19 12:17] LABS: BLOOD UREA NITROGEN 16 mg/dl (7-18); BUN/CREATININE RATIO 11.2 (10-20); CALCIUM 8.6 mg/dl (8.5-10.1); CARBON DIOXIDE 26 mmol/L (21-32); CHLORIDE 103 mmol/L (98-107); GLUCOSE 99 mg/dl (70-99); POTASSIUM 5.5 mmol/L (3.5-5.1); SODIUM 135 mmol/L (136-145)
[2016-12-19 14:54] VITALS: BP 91/53; PULSE 81; TEMP 37.3; O2SAT 97
--- NOTE | 2016-12-19 18:32 | NEPHROLOGY CONSULTATION ---
DATE OF CONSULTATION: 12/19/2016 REASON FOR CONSULT: Acute renal failure, hyponatremia and hyperkalemia. HISTORY OF PRESENT ILLNESS: The patient is a 31-year-old male with history of significant substance abuse, tobacco abuse and schizophrenia. He presented to the hospital yesterday with abdominal pain. He was noted to have very abnormal labs with a potassium of 6.2, sodium of 130 and a creatinine of 2.0. He has been in the hospital now for almost 2 days and his potassium is still quite high and this morning it was 6.9 and sodium was still 133. He has been getting a lot of IV fluids in the form of normal saline at 200 mL per hour. His blood pressure is still somewhat low, but he feels a lot better and he is urinating a lot, but I do not think all the urine output is charted accurately, as he does not have a Berry catheter. About a week ago, the patient was in the Emergency also with the same problem of abdominal pain with nausea, vomiting and occasional brown watery stools. CT scan of the abdomen and pelvis was done at that time and showed no bowel obstruction, no acute abnormality and he was actually discharged from the hospital but even at that time his labs were abnormal with a potassium of 5.9, sodium of 130 and a creatinine of 1.6. PAST SURGICAL HISTORY: As noted above. HOME MEDICATIONS: Includes Wellbutrin and Seroquel. ALLERGIES: No known drug allergies. FAMILY HISTORY: Diabetes and muscular dystrophy. PERSONAL AND SOCIAL HISTORY: He has history of drug abuse. He was positive for ecstasy on his initial toxic screen. 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 REVIEW OF SYSTEMS: Positive for GI symptoms of nausea, vomiting and abdominal pain for the last 10 days or so with significantly decreased appetite. Other than that, he felt weak and had no energy to do anything but denies having any shortness of breath, orthopnea, PND, lower extremity edema, weight gain, headache or any other symptoms. A total of 14 systems reviewed. PHYSICAL EXAMINATION: VITAL SIGNS: Most recent blood pressure is 93/47, 91% on room air, pulse rate 70 per minute, temperature 37 degrees Celsius. GENERAL: Young white male who is not in any distress. He is thin built. Most recent blood pressure is 93/47, 91% on room air. HEENT: Mucous membrane is moist. NECK: Supple. No jugular venous distention. CHEST: Bilateral clear to auscultation. CARDIOVASCULAR: S1 and S2, regular. ABDOMEN: Soft, nontender. EXTREMITIES: Shows no edema. NEUROLOGIC: No focal abnormality noted. Moving all 4 extremities. Normal speech, normal orientation. LABORATORY DATA: Laboratory test was noted as below: Toxic screen was positive for ecstasy, hemoglobin 12.9, platelet count 216. Sodium 133, potassium 6.9, BUN 18, creatinine 1.4, calcium 8.1, anion gap 6. Serum osmolarity at the time of admission was 281 with no osmolar gap. Total CK at the time of admission was 500 and is now down to 342. Urinalysis done at the time of admission was negative for blood, negative for protein, specific gravity 1.017. ASSESSMENT AND PLAN: A 31-year-old male with history of opiate and polysubstance abuse who was admitted with abdominal pain, possibly secondary to opioid-induced constipation, but he was noted to have acute renal failure, hyperkalemia and hyponatremia. 1. Acute renal failure. It appears to be prerenal in etiology, as he was having significant nausea, vomiting, abdominal pain and very decreased oral intake for the last 10 days or so. It also appears his blood pressure was quite low at 70 systolic and even now it is somewhat low, but I do not think he is volume depleted anymore, as he has been getting very high dose of fluid for almost 2 days now. It is quite possible that this low blood pressure is his baseline. I would cut down the normal saline to 100 mL per hour at this time. 2. Hyponatremia. Even after 2 days of normal saline, his sodium is still somewhat low at 133. For the time being, I would like to cut down the sodium chloride infusion to 100. If it is still low by tomorrow, we probably need to do some workup for hyponatremia also. The patient has schizophrenia as well as history of drug abuse, so he is at risk of having hyponatremia issues of multiple types. 3. Hyperkalemia. This is definitely somewhat surprising why he has potassium as high as 6.9 even after 2 days of IV fluid. For the time being, I would give him another dose of Kayexalate 15 g. This is on top of the 15 g he received earlier today. I would also give him Lasix 20 mg IV x1 for renal loss of potassium. Check the BMP again few hours after the Lasix and the Kayexalate. Continue to follow the potassium closely. If still high tomorrow will consider doing workup for hypoaldo given low Bp, Low Na and high K Thank you very much for the consult. PHILLIP
[2016-12-19 19:20] VITALS: BP 86/46; PULSE 79; TEMP 36.9; O2SAT 93
[2016-12-19 20:00] VITALS: O2SAT 93
--- NOTE | 2016-12-19 20:22 | Progress Note ---
Internal Med Progress Note Date of Service: Dec 19, 2016. Provider Documentation: SUBJECTIVE: offers no complain wants to know when he can be discharged home OBJECTIVE: Vital Signs-as noted below Exam: General-young male, no sign of distress Eyes-mildly icteric sclera Lungs-CTA, no wheeze or rales Heart-regular S1/S2 Abdomen-abdomen soft, + mid abdomen tenderness , no rebound ,normal bowel sound Extremities-no lower ext edema Neuro-AAO x3, no focal deficit Lab data as noted below. 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 given IV fluid Cr improved 2-> 1.7 Nephrology consulted PERSISTED HYPERKALEMIA : not sure of the etiology pt given multiple dose of Kayexalate ; insulin/Dextrose continued with IVF last lab work shows K 5.5 follow daily labs appreciate input form nephrology POLYSUBSTANCE ABUSE : hx of drug abuse Urine tx screen + Ecstasy ABDOMINAL PAIN symptom improved Xray of abdomen moderated constipation no bowel obstruction noted possible due to narcotic pain meds ordered for bowel regimen limit pain meds ELEVATED CPK : improved with IVF HYPOTHYROIDISM : TSH > 17 started on low dose levothyroxine DVT PROPHYLAXIS low risk SCD and teds Ambulate DISPOSITION Discharge home when medially stable will need to establish with Family physician willing to Follow at [facility] clinic Will schedule appointment prior to discharge Vital Signs: Date Time Temp Pulse Resp B/P (MAP) Pulse Ox O2 Delivery O2 Flow Rate FiO2 12/19/16 19:20 36.9 79 20 86/46 (59) 93 Room Air 12/19/16 16:00 Room Air 12/19/16 14:54 37.3 81 18 91/53 (66) 97 Room Air 12/19/16 12:04 37.3 83 19 94/48 (63) 94 Room Air 12/19/16 12:00 Room Air 12/19/16 08:00 Room Air 12/19/16 07:11 37.0 70 18 93/47 (62) 91 Room Air 12/19/16 04:00 Room Air 12/19/16 03:00 37.0 81 15 93/57 (69) 96 Room Air 12/19/16 00:00 Room Air 12/18/16 23:03 36.9 80 18 94/52 (66) 98 Room Air Lab Results: Results Past 24 Hours Test 12/18/16 20:30 12/18/16 23:50 12/19/16 05:41 12/19/16 07:46 Range/Units Bedside Glucose 74 89 160 70-99 mg/dl Sodium Level 133 136-145 mmol/L Potassium Level 6.9 3.5-5.1 mmol/L Chloride Level 104 98-107 mmol/L Carbon Dioxide Level 23 21-32 mmol/L Anion Gap 6.0 3-11 mmol/L Blood Urea Nitrogen 18 7-18 mg/dl Creatinine 1.40 0.60-1.40 mg/dl Est Creatinine Clear Calc Drug Dose 79.7 ml/min Estimated GFR () 77.6 Estimated GFR (Non- 66.9 BUN/Creatinine Ratio 12.7 10-20 Random Glucose 65 70-99 mg/dl Calcium Level 8.1 8.5-10.1 mg/dl Total Creatine Kinase 342 39-308 U/L Test 12/19/16 08:08 12/19/16 08:48 12/19/16 09:07 12/19/16 09:57 Range/Units Bedside Glucose 110 85 108 70-99 mg/dl Creatine Kinase MB Ratio 0-3.0 Test 12/19/16 11:25 12/19/16 11:35 12/19/16 16:09 Range/Units Bedside Glucose 113 93 70-99 mg/dl Sodium Level 135 136-145 mmol/L Potassium Level 5.5 3.5-5.1 mmol/L Chloride Level 103 98-107 mmol/L Carbon Dioxide Level 26 21-32 mmol/L Anion Gap 6.0 3-11 mmol/L Blood Urea Nitrogen 16 7-18 mg/dl Creatinine 1.40 0.60-1.40 mg/dl Est Creatinine Clear Calc Drug Dose 79.7 ml/min Estimated GFR () 77.6 Estimated GFR (Non- 66.9 BUN/Creatinine Ratio 11.2 10-20 Random Glucose 99 70-99 mg/dl Calcium Level 8.6 8.5-10.1 mg/dl Creatine Kinase MB 4.5 0.5-3.6 ng/ml
[2016-12-19] MEDS: QUETIAPINE FUMARATE 25 MG TAB PO SCH (22:23)
[2016-12-20] VITALS (10 sets, daily range): BP systolic 88–103; BP diastolic 39–63; PULSE 65–91; TEMP 36.5–37.2; O2SAT 95–99
[2016-12-20] MEDS: HYDROmorphone INJ 1 MG/ML SYR IV PRN ×4 (03:47→22:57)
[2016-12-20 04:53] LABS: BASO % 0.4 %; BASO ABS # 0.02 K/uL (0-0.2); COMPLETE YES; EOS % 5.2 %; HEMATOCRIT 28.9 % (42-52); LYMPH % 48.7 %; LYMPH ABS # 2.35 K/uL (1.2-3.4); MEAN CELL VOLUME 82.3 fL (80-100); MEAN CORPUSCULAR HEMOGLOBIN 30.2 pg (25-34); MEAN CORPUSCULAR HGB CONC 36.7 g/dl (32-36); MONO % 10.4 %; NEUT % 35.3 %; PLATELET COUNT 160 K/uL (130-400); RED BLOOD COUNT 3.51 M/uL (4.7-6.1); WHITE BLOOD COUNT 4.83 K/uL (4.8-10.8)
[2016-12-20 05:12] LABS: BUN/CREATININE RATIO 9.7 (10-20); CREATININE 1.3 mg/dl (0.60-1.40)
[2016-12-20] MEDS ORDERED: SODIUM POLYST. SULF SUSP 15G/60ML PO STA ×2 (05:17→20:35)
[2016-12-20] MEDS ORDERED: CALCIUM GLUCONATE 10% 1,000 MG in SODIUM CHLORIDE 0.9% 50ML 50 ML IV STA (05:17)
--- NOTE | 2016-12-20 05:17 | Progress Note ---
Internal Med Progress Note Date of Service: Dec 20, 2016. Provider Documentation: Made aware of AM labs sodium 134, K 6 SBP 80s AP ? 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 drug abuse as per records) Will update AM provider. Vital Signs: Date Time Temp Pulse Resp B/P (MAP) Pulse Ox O2 Delivery O2 Flow Rate FiO2 12/20/16 07:19 36.5 91 16 94/48 (63) 95 Room Air 12/20/16 04:00 99 Room Air 12/20/16 03:18 37.1 76 17 88/41 (57) 99 Room Air 12/20/16 00:07 37.0 84 14 100/50 (67) 96 Room Air 12/19/16 23:59 Room Air 12/19/16 20:00 93 Room Air 12/19/16 19:20 36.9 79 20 86/46 (59) 93 Room Air 12/19/16 16:00 Room Air 12/19/16 14:54 37.3 81 18 91/53 (66) 97 Room Air 12/19/16 12:04 37.3 83 19 94/48 (63) 94 Room Air 12/19/16 12:00 Room Air Lab Results: Results Past 24 Hours Test 12/19/16 08:08 12/19/16 08:48 12/19/16 09:07 12/19/16 09:57 Range/Units Bedside Glucose 110 85 108 70-99 mg/dl Creatine Kinase MB Ratio 0-3.0 Test 12/19/16 11:25 12/19/16 11:35 12/19/16 16:09 12/19/16 20:13 Range/Units Bedside Glucose 113 93 150 70-99 mg/dl Sodium Level 135 136-145 mmol/L Potassium Level 5.5 3.5-5.1 mmol/L Chloride Level 103 98-107 mmol/L Carbon Dioxide Level 26 21-32 mmol/L Anion Gap 6.0 3-11 mmol/L Blood Urea Nitrogen 16 7-18 mg/dl Creatinine 1.40 0.60-1.40 mg/dl Est Creatinine Clear Calc Drug Dose 79.7 ml/min Estimated GFR () 77.6 Estimated GFR (Non- 66.9 BUN/Creatinine Ratio 11.2 10-20 Random Glucose 99 70-99 mg/dl Calcium Level 8.6 8.5-10.1 mg/dl Creatine Kinase MB 4.5 0.5-3.6 ng/ml Test 12/20/16 04:45 12/20/16 06:33 12/20/16 07:46 12/20/16 07:59 Range/Units White Blood Count 4.83 4.8-10.8 K/uL Red Blood Count 3.51 4.7-6.1 M/uL Hemoglobin 10.6 14.0-18.0 g/dL Hematocrit 28.9 42-52 % Mean Corpuscular Volume 82.3 80-100 fL Mean Corpuscular Hemoglobin 30.2 25-34 pg Mean Corpuscular Hemoglobin Concent 36.7 32-36 g/dl Platelet Count 160 130-400 K/uL Mean Platelet Volume 9.0 7.4-10.4 fL Neutrophils (%) (Auto) 35.3 % Lymphocytes (%) (Auto) 48.7 % Monocytes (%) (Auto) 10.4 % Eosinophils (%) (Auto) 5.2 % Basophils (%) (Auto) 0.4 % Neutrophils # (Auto) 1.71 1.4-6.5 K/uL Lymphocytes # (Auto) 2.35 1.2-3.4 K/uL Monocytes # (Auto) 0.50 0.11-0.59 K/uL Eosinophils # (Auto) 0.25 0-0.5 K/uL Basophils # (Auto) 0.02 0-0.2 K/uL RDW Standard Deviation 35.9 36.4-46.3 fL RDW Coefficient of Variation 12.0 11.5-14.5 % Immature Granulocyte % (Auto) 0.0 % Immature Granulocyte # (Auto) 0.00 0.00-0.02 K/uL Sodium Level 134 136-145 mmol/L Potassium Level 6.0 3.5-5.1 mmol/L Chloride Level 102 98-107 mmol/L Carbon Dioxide Level 28 21-32 mmol/L Anion Gap 4.0 3-11 mmol/L Blood Urea Nitrogen 13 7-18 mg/dl Creatinine 1.30 0.60-1.40 mg/dl Est Creatinine Clear Calc Drug Dose 85.8 ml/min Estimated GFR () 84.9 Estimated GFR (Non- 73.2 BUN/Creatinine Ratio 9.7 10-20 Random Glucose 93 70-99 mg/dl Calcium Level 8.0 8.5-10.1 mg/dl Total Creatine Kinase 270 39-308 U/L Bedside Glucose 58 70-99 mg/dl
[2016-12-20] MEDS ORDERED: DEXTROSE 50% 50 ML SYR IV STA (05:28)
[2016-12-20] MEDS ORDERED: INSULIN HUMAN REGULAR PER UNIT 5 UNITS in SYRINGE 4.95 ML IV STA (05:31)
[2016-12-20] MEDS ORDERED: DEXAMETHASONE INJ 4 MG in SYRINGE 0 ML IV STA (05:32)
[2016-12-20] MEDS: LEVOTHYROXINE 25 MCG TAB PO SCH (05:52)
[2016-12-20] MEDS: NICOTINE 21 MG/24 HR TDSY TD SCH (06:09)
[2016-12-20] MEDS: GLUCOSE 10 TABS/TUBE PO PRN (07:17)
[2016-12-20] MEDS ORDERED: COSYNTROPIN INJ 0.25 MCG in SYRINGE 4 ML IV ONE (08:00)
[2016-12-20] MEDS: D5W AND NSS 1,000 ML IV SCH ×2 (08:39→18:16)
[2016-12-20] MEDS: POLYETHYLENE (MIRALAX) 17 GM PACK PO SCH (08:39)
[2016-12-20] MEDS: DOCUSATE SODIUM 100 MG CAP PO SCH ×2 (08:39→20:26)
[2016-12-20] MEDS: BISACODYL 5 MG TABEC PO SCH (08:39)
[2016-12-20] MEDS: BuPROPion SR 150 MG TABCR PO SCH (08:40)
--- NOTE | 2016-12-20 09:04 | Nephrology Progress Note ---
Nephrology Progress Note Date of Service: Dec 20, 2016. Subjective 31 yo male with cody and hyperkalemia. creatinine has improved from 2 to 1.3 but still with issues with elevated potassium. also continues to complain of abdominal pain and requiring iv pain meds quite frequently. on iv fluids. bp is low and at times is hypotensive. also with mild hyponatremia as well. concerning for hypoaldo state. giving a dose of cosyntropin this morning and checking luis manuel/renin/random cortisol. Objective Date Time Temp Pulse Resp B/P (MAP) Pulse Ox O2 Delivery O2 Flow Rate FiO2 12/20/16 07:19 36.5 91 16 94/48 (63) 95 Room Air 12/20/16 04:00 99 Room Air 12/20/16 03:18 37.1 76 17 88/41 (57) 99 Room Air 12/20/16 00:07 37.0 84 14 100/50 (67) 96 Room Air 12/19/16 23:59 Room Air 12/19/16 20:00 93 Room Air 12/19/16 19:20 36.9 79 20 86/46 (59) 93 Room Air 12/19/16 16:00 Room Air 12/19/16 14:54 37.3 81 18 91/53 (66) 97 Room Air 12/19/16 12:04 37.3 83 19 94/48 (63) 94 Room Air 12/19/16 12:00 Room Air Physical Exam: General-aaox3, thin Eyes-no scleral icterus ENT-mmm Neck-supple Lungs-cta Heart-rrr Abdomen-bs+/soft/nondistended Extremities-no c/c/e Neuro-nonfocal Current Inpatient Medications Medications (Trade) Dose Ordered Sig/Juan F Route Start Time Stop Time Status Last Admin Dose Admin Acetaminophen (Tylenol Tab) 650 mg Q4H PRN PO 12/17/16 22:30 01/16/17 22:29 12/18/16 03:04 650 MG Nitroglycerin (Nitrostat Tab) 0.4 mg UD PRN SL 12/17/16 22:30 01/16/17 22:29 Bupropion HCl (Wellbutrin-Sr Tab) 150 mg QAM PO 12/18/16 09:00 01/17/17 08:59 12/19/16 07:26 150 MG Quetiapine Fumarate (seroQUEL TAB) 50 mg HS PO 12/18/16 21:00 01/17/17 20:59 12/19/16 22:23 50 MG Ondansetron HCl (Zofran Inj) 4 mg Q6H PRN IV 12/17/16 22:30 01/16/17 22:29 12/18/16 04:34 4 MG Tramadol HCl (Ultram Tab) 25 mg Q6H PRN PO 12/18/16 03:00 01/17/17 02:59 12/18/16 14:23 25 MG Hydromorphone HCl (Dilaudid Inj) 0.5 mg Q4 PRN IV 12/18/16 10:00 01/01/17 09:59 12/20/16 03:47 0.5 MG Levothyroxine Sodium (Synthroid Tab) 25 mcg DAILYBB PO 12/19/16 06:00 01/18/17 05:59 12/20/16 05:52 25 MCG Docusate Sodium (coLACE CAP) 100 mg BID PO 12/18/16 21:00 01/17/17 08:59 12/19/16 07:25 100 MG Polyethylene (Miralax Powder Packet) 17 gm DAILY PO 12/19/16 09:00 01/17/17 02:59 12/19/16 07:25 17 GM Bisacodyl (Dulcolax Tab) 5 mg DAILY PO 12/18/16 14:00 01/17/17 13:59 12/19/16 07:25 5 MG Nicotine (Nicoderm Cq 21MG Patch) 1 patch QAM TD 12/18/16 17:30 01/17/17 17:29 12/20/16 06:09 1 PATCH Miscellaneous (Remove Nicoderm Patch) 1 ea HS N/A 12/18/16 21:00 01/17/17 20:59 12/19/16 20:43 1 EA Glucose (Glucose 40% Gel) 15-30 GRAMS 15 GRAMS... UD PRN PO 12/19/16 07:45 01/18/17 07:44 Glucose (Glucose Chew Tab) 4-8 Tablets 4 Tabl... UD PRN PO 12/19/16 07:45 01/18/17 07:44 12/20/16 07:17 4 TABS Dextrose (Dextrose 50% 50ML Syringe) 25-50ML OF 50% DW IV FOR... UD PRN IV 12/19/16 07:45 01/18/17 07:44 12/20/16 06:44 25 ML Glucagon (Glucagon Inj) 1 mg UD PRN SQ 12/19/16 07:45 01/18/17 07:44 Dextrose/Sodium Chloride 1,000 ml @ 100 mls/hr Q10H IV 12/20/16 08:00 01/19/17 07:59 Last 24 Hours Test 12/19/16 09:07 12/19/16 09:57 12/19/16 11:25 12/19/16 11:35 Bedside Glucose 108 mg/dl 113 mg/dl Creatine Kinase MB Ratio Sodium Level 135 mmol/L Potassium Level 5.5 mmol/L Chloride Level 103 mmol/L Carbon Dioxide Level 26 mmol/L Anion Gap 6.0 mmol/L Blood Urea Nitrogen 16 mg/dl Creatinine 1.40 mg/dl Est Creatinine Clear Calc Drug Dose 79.7 ml/min Estimated GFR () 77.6 Estimated GFR (Non- 66.9 BUN/Creatinine Ratio 11.2 Random Glucose 99 mg/dl Calcium Level 8.6 mg/dl Creatine Kinase MB 4.5 ng/ml Test 12/19/16 16:09 12/19/16 20:13 12/20/16 04:45 12/20/16 06:33 Bedside Glucose 93 mg/dl 150 mg/dl 58 mg/dl White Blood Count 4.83 K/uL Red Blood Count 3.51 M/uL Hemoglobin 10.6 g/dL Hematocrit 28.9 % Mean Corpuscular Volume 82.3 fL Mean Corpuscular Hemoglobin 30.2 pg Mean Corpuscular Hemoglobin Concent 36.7 g/dl Platelet Count 160 K/uL Mean Platelet Volume 9.0 fL Neutrophils (%) (Auto) 35.3 % Lymphocytes (%) (Auto) 48.7 % Monocytes (%) (Auto) 10.4 % Eosinophils (%) (Auto) 5.2 % Basophils (%) (Auto) 0.4 % Neutrophils # (Auto) 1.71 K/uL Lymphocytes # (Auto) 2.35 K/uL Monocytes # (Auto) 0.50 K/uL Eosinophils # (Auto) 0.25 K/uL Basophils # (Auto) 0.02 K/uL RDW Standard Deviation 35.9 fL RDW Coefficient of Variation 12.0 % Immature Granulocyte % (Auto) 0.0 % Immature Granulocyte # (Auto) 0.00 K/uL Sodium Level 134 mmol/L Potassium Level 6.0 mmol/L Chloride Level 102 mmol/L Carbon Dioxide Level 28 mmol/L Anion Gap 4.0 mmol/L Blood Urea Nitrogen 13 mg/dl Creatinine 1.30 mg/dl Est Creatinine Clear Calc Drug Dose 85.8 ml/min Estimated GFR () 84.9 Estimated GFR (Non- 73.2 BUN/Creatinine Ratio 9.7 Random Glucose 93 mg/dl Calcium Level 8.0 mg/dl Total Creatine Kinase 270 U/L Test 12/20/16 07:59 12/20/16 08:13 12/20/16 08:24 Bedside Glucose 83 mg/dl Assessment & Plan hyperkalemia-on iv fluids with intermittent doses of lasix. to give another dose of lasix this morning. checking for hiv, random cortisol, luis manuel/renin, question if this is hypoaldo given the hypotension and hyponatremia as well. to recheck potassium levels again this morning. should not continue to be having hyperkalemia given resolution of cody if purely from renal failure.
[2016-12-20] MEDS ORDERED: FUROSEMIDE INJ 20 MG in SYRINGE 0 ML IV ONE (09:30)
[2016-12-20 12:45] LABS: BUN/CREATININE RATIO 9.6 (10-20); CALCIUM 8.6 mg/dl (8.5-10.1); CREATININE 1.5 mg/dl (0.60-1.40); POTASSIUM 4.8 mmol/L (3.5-5.1)
[2016-12-20] MEDS ORDERED: HYDROmorphone INJ 1 MG/ML SYR IV PRN (18:00)
[2016-12-20 20:25] LABS: BUN/CREATININE RATIO 11.9 (10-20); CALCIUM 8.6 mg/dl (8.5-10.1); CREATININE 1.4 mg/dl (0.60-1.40); POTASSIUM 6.1 mmol/L (3.5-5.1)
[2016-12-20] MEDS ORDERED: DEXTROSE 50% 50 ML SYR IV ONE (21:00)
[2016-12-20] MEDS ORDERED: INSULIN HUMAN REGULAR PER UNIT 5 UNITS in SYRINGE 4.95 ML IV ONE (21:15)
[2016-12-20] MEDS ORDERED: DEXAMETHASONE INJ 4 MG in SYRINGE 0 ML IV ONE (21:15)
--- NOTE | 2016-12-20 21:32 | Progress Note ---
Internal Med Progress Note Date of Service: Dec 20, 2016. Provider Documentation: SUBJECTIVE: feels much better today BP remains stable very eager to be discharged home OBJECTIVE: Vital Signs-as noted below Exam: General-young male, no sign of distress , [place] complexion Eyes-mildly icteric sclera Lungs-CTA, no wheeze or rales Heart-regular S1/S2 Abdomen-abdomen soft, + mid abdomen tenderness , no rebound ,normal bowel sound Extremities-no lower ext edema Neuro-AAO x3, no focal deficit Lab data as noted below. ASSESSMENT & PLAN: 31 yo Male with hx of polysubstance abuse , presented with confusion , ongoing abdominal pain found to have EDGAR with hyperkalemia, elevated CPK suggestive of rhabdomyolysis HYPOTENSION /HYPERKALEMIA /HYPONATREMIA /GENERALIZED WEAKNESS : due to Hypoaldosteronism/Reynolds's disease random cortisol level low, low TSH symptom markedly improved after IV Hydrocortisone appreciate input form Nephrology pt will need Life long oral steroid , Fludrocortisone will need Endocrine follow up HIV /Hepatitis panel ordered to rule out infectious cause of Hypoaldo negative serology ATN/EDGAR due to dehydration , vol loss with hypoaldo given IV fluid Cr improved 2-> 1.7 Nephrology consulted PERSISTED HYPERKALEMIA : due to hypoaldosteronism pt given multiple dose of Kayexalate ; insulin/Dextrose improved after initiation of IV hydrocortisone K 4.5 today follow daily labs appreciate input form nephrology POLYSUBSTANCE ABUSE : hx of drug abuse Urine tx screen + Ecstasy ABDOMINAL PAIN possible due to Hypoaldosteronism symptom improved pt has been requesting IV Dilaudid on schedule ( hx of narcotic abuse ) will limit IV Narcotics ELEVATED CPK : improved with IVF HYPOTHYROIDISM : TSH > 17 started on low dose levothyroxine DVT PROPHYLAXIS low risk SCD and teds Ambulate DISPOSITION Discharge home in next 24-48 hrs if electrolytes remain stable will need to establish with Family physician will need endocrine follow up as out patient willing to Follow at [facility] Will schedule appointment prior to discharge Vital Signs: Date Time Temp Pulse Resp B/P (MAP) Pulse Ox O2 Delivery O2 Flow Rate FiO2 12/20/16 19:57 37.2 87 20 100/50 (67) 96 Room Air 12/20/16 16:09 36.9 81 18 99/63 (75) 96 Room Air 12/20/16 16:00 95 Room Air 12/20/16 12:00 36.9 81 16 103/54 (70) 97 Room Air 12/20/16 12:00 96 Room Air 12/20/16 08:00 95 Room Air 12/20/16 07:19 36.5 91 16 94/48 (63) 95 Room Air 12/20/16 04:00 99 Room Air 12/20/16 03:18 37.1 76 17 88/41 (57) 99 Room Air 12/20/16 00:07 37.0 84 14 100/50 (67) 96 Room Air 12/19/16 23:59 Room Air Lab Results: Results Past 24 Hours Test 12/20/16 04:45 12/20/16 06:33 12/20/16 07:12 12/20/16 08:13 Range/Units White Blood Count 4.83 4.8-10.8 K/uL Red Blood Count 3.51 4.7-6.1 M/uL Hemoglobin 10.6 14.0-18.0 g/dL Hematocrit 28.9 42-52 % Mean Corpuscular Volume 82.3 80-100 fL Mean Corpuscular Hemoglobin 30.2 25-34 pg Mean Corpuscular Hemoglobin Concent 36.7 32-36 g/dl Platelet Count 160 130-400 K/uL Mean Platelet Volume 9.0 7.4-10.4 fL Neutrophils (%) (Auto) 35.3 % Lymphocytes (%) (Auto) 48.7 % Monocytes (%) (Auto) 10.4 % Eosinophils (%) (Auto) 5.2 % Basophils (%) (Auto) 0.4 % Neutrophils # (Auto) 1.71 1.4-6.5 K/uL Lymphocytes # (Auto) 2.35 1.2-3.4 K/uL Monocytes # (Auto) 0.50 0.11-0.59 K/uL Eosinophils # (Auto) 0.25 0-0.5 K/uL Basophils # (Auto) 0.02 0-0.2 K/uL RDW Standard Deviation 35.9 36.4-46.3 fL RDW Coefficient of Variation 12.0 11.5-14.5 % Immature Granulocyte % (Auto) 0.0 % Immature Granulocyte # (Auto) 0.00 0.00-0.02 K/uL Sodium Level 134 136-145 mmol/L Potassium Level 6.0 3.5-5.1 mmol/L Chloride Level 102 98-107 mmol/L Carbon Dioxide Level 28 21-32 mmol/L Anion Gap 4.0 3-11 mmol/L Blood Urea Nitrogen 13 7-18 mg/dl Creatinine 1.30 0.60-1.40 mg/dl Est Creatinine Clear Calc Drug Dose 85.8 ml/min Estimated GFR () 84.9 Estimated GFR (Non- 73.2 BUN/Creatinine Ratio 9.7 10-20 Random Glucose 93 70-99 mg/dl Calcium Level 8.0 8.5-10.1 mg/dl Total Creatine Kinase 270 39-308 U/L Bedside Glucose 58 53 83 70-99 mg/dl Test 12/20/16 08:24 12/20/16 11:10 12/20/16 11:56 12/20/16 16:34 Range/Units Random Cortisol < 0.50 mcg/dl Hepatitis B Surface Antigen NEG NEG Hepatitis C Antibody NEG NEG Bedside Glucose 165 249 70-99 mg/dl Sodium Level 134 136-145 mmol/L Potassium Level 4.8 3.5-5.1 mmol/L Chloride Level 101 98-107 mmol/L Carbon Dioxide Level 22 21-32 mmol/L Anion Gap 11.0 3-11 mmol/L Blood Urea Nitrogen 14 7-18 mg/dl Creatinine 1.50 0.60-1.40 mg/dl Est Creatinine Clear Calc Drug Dose 74.4 ml/min Estimated GFR () 71.4 Estimated GFR (Non- 61.6 BUN/Creatinine Ratio 9.6 10-20 Random Glucose 223 70-99 mg/dl Calcium Level 8.6 8.5-10.1 mg/dl HIV (1&2) Ab and P24 Ag, 4th Gener NEG NEG Test 12/20/16 19:44 12/20/16 20:12 Range/Units Sodium Level 132 136-145 mmol/L Potassium Level 6.1 3.5-5.1 mmol/L Chloride Level 101 98-107 mmol/L Carbon Dioxide Level 23 21-32 mmol/L Anion Gap 8.0 3-11 mmol/L Blood Urea Nitrogen 17 7-18 mg/dl Creatinine 1.40 0.60-1.40 mg/dl Est Creatinine Clear Calc Drug Dose 79.7 ml/min Estimated GFR () 77.6 Estimated GFR (Non- 66.9 BUN/Creatinine Ratio 11.9 10-20 Random Glucose 155 70-99 mg/dl Calcium Level 8.6 8.5-10.1 mg/dl Bedside Glucose 174 70-99 mg/dl
[2016-12-20] MEDS: HYDROCORTISONE IV 50 MG in SYRINGE 0 ML IV SCH (22:56)
[2016-12-20] MEDS: QUETIAPINE FUMARATE 25 MG TAB PO SCH (22:56)
[2016-12-21] VITALS (10 sets, daily range): BP systolic 90–101; BP diastolic 42–53; PULSE 69–76; TEMP 36.4–37; O2SAT 98–100; Ht 177.8 cm; Wt 70.8 kg
[2016-12-21 00:57] LABS: BUN/CREATININE RATIO 13.2 (10-20); CALCIUM 8.1 mg/dl (8.5-10.1); CREATININE 1.4 mg/dl (0.60-1.40); POTASSIUM 6.3 mmol/L (3.5-5.1)
[2016-12-21] MEDS ORDERED: FLUDROCORTISONE ACETATE 0.1 MG TAB PO ONE (01:01)
[2016-12-21] MEDS ORDERED: INSULIN HUMAN REGULAR PER UNIT 10 UNITS in SYRINGE 0 ML IV STA (01:01)
[2016-12-21] MEDS ORDERED: CALCIUM GLUCONATE 10% 1,000 MG in SODIUM CHLORIDE 0.9% 50ML 50 ML IV STA (01:07)
[2016-12-21] MEDS ORDERED: DEXTROSE 50% 50 ML SYR IV ONE (01:15)
[2016-12-21] MEDS ORDERED: INSULIN HUMAN REGULAR PER UNIT 10 UNITS in SYRINGE 9.9 ML IV SCH (01:30)
[2016-12-21] MEDS ORDERED: DEXTROSE 50% 50 ML SYR IV SCH (01:30)
[2016-12-21] MEDS: SODIUM CHLORIDE 0.9% 1000ML 1,000 ML IV SCH ×2 (01:38→06:22)
[2016-12-21 04:04] LABS: COMPLETE YES; HEMATOCRIT 27.6 % (42-52); IG% 0.1 %; MEAN CELL VOLUME 82.1 fL (80-100); MEAN CORPUSCULAR HEMOGLOBIN 29.5 pg (25-34); MEAN CORPUSCULAR HGB CONC 35.9 g/dl (32-36); NEUT % 85.9 %; PLATELET COUNT 147 K/uL (130-400); RED BLOOD COUNT 3.36 M/uL (4.7-6.1); WHITE BLOOD COUNT 7.26 K/uL (4.8-10.8)
[2016-12-21 04:28] LABS: BUN/CREATININE RATIO 14.6 (10-20); CALCIUM 8.2 mg/dl (8.5-10.1); CREATININE 1.2 mg/dl (0.60-1.40); POTASSIUM 4.8 mmol/L (3.5-5.1)
[2016-12-21] MEDS ORDERED: GLUCOSE 40% GEL 15 GM TUBE PO PRN (05:45)
[2016-12-21] MEDS ORDERED: GLUCAGON FOR INJ 1 MG VIAL SQ PRN (05:45)
[2016-12-21] MEDS ORDERED: GLUCOSE 10 TABS/TUBE PO PRN (05:45)
[2016-12-21] MEDS ORDERED: DEXTROSE 50% 50 ML SYR IV PRN (05:45)
[2016-12-21] MEDS ORDERED: INSULIN GLARGINE SOLOSTAR 100 UNITS/ML 3 ML PEN SC ONE (06:00)
[2016-12-21] MEDS: LEVOTHYROXINE 25 MCG TAB PO SCH (06:22)
[2016-12-21] MEDS: HYDROCORTISONE IV 50 MG in SYRINGE 0 ML IV SCH ×3 (06:22→20:47)
[2016-12-21] MEDS: INSULIN ASPART 100 UNITS/ML 3 ML PEN SC SCH ×4 (08:03→20:45)
[2016-12-21] MEDS: BuPROPion SR 150 MG TABCR PO SCH (08:57)
[2016-12-21] MEDS: NICOTINE 21 MG/24 HR TDSY TD SCH (08:57)
[2016-12-21] MEDS: HYDROmorphone INJ 1 MG/ML SYR IV PRN ×2 (08:58→17:00)
[2016-12-21] MEDS ORDERED: FLUDROCORTISONE ACETATE 0.1 MG TAB PO SCH (09:00)
[2016-12-21] MEDS ORDERED: BISACODYL 5 MG TABEC PO PRN (09:00)
[2016-12-21] MEDS ORDERED: COSYNTROPIN INJ 0.25 MCG in SYRINGE 4 ML IV ONE (09:15)
--- NOTE | 2016-12-21 09:16 | Nephrology Progress Note ---
Nephrology Progress Note Date of Service: Dec 21, 2016. Subjective 31 yo male with cody and hyperkalemia. creatinine has improved from 2 to 1.5 but still with issues with elevated potassium. thought to have hypoaldo state. on steroids. pt urinating frequently and on iv fluids. asking to have the fluids stopped. Objective Date Time Temp Pulse Resp B/P (MAP) Pulse Ox O2 Delivery O2 Flow Rate FiO2 12/21/16 07:19 36.4 76 16 90/45 (60) 98 Room Air 12/21/16 04:32 36.4 73 18 101/50 (67) 98 Room Air 12/21/16 04:00 Room Air 12/21/16 00:00 Room Air 12/20/16 23:51 36.8 65 18 90/39 (56) 99 Room Air 12/20/16 20:00 Room Air 12/20/16 19:57 37.2 87 20 100/50 (67) 96 Room Air 12/20/16 16:09 36.9 81 18 99/63 (75) 96 Room Air 12/20/16 16:00 95 Room Air 12/20/16 12:00 36.9 81 16 103/54 (70) 97 Room Air 12/20/16 12:00 96 Room Air Physical Exam: General-aaox3, thin Eyes-no scleral icterus ENT-mmm Neck-supple Lungs-clear Heart-regular Abdomen-bs+/soft/nondistended Extremities-no c/c/e Neuro-nonfocal Current Inpatient Medications Medications (Trade) Dose Ordered Sig/Juna F Route Start Time Stop Time Status Last Admin Dose Admin Acetaminophen (Tylenol Tab) 650 mg Q4H PRN PO 12/17/16 22:30 01/16/17 22:29 12/18/16 03:04 650 MG Nitroglycerin (Nitrostat Tab) 0.4 mg UD PRN SL 12/17/16 22:30 01/16/17 22:29 Bupropion HCl (Wellbutrin-Sr Tab) 150 mg QAM PO 12/18/16 09:00 01/17/17 08:59 12/21/16 08:57 150 MG Quetiapine Fumarate (seroQUEL TAB) 50 mg HS PO 12/18/16 21:00 01/17/17 20:59 12/20/16 22:56 50 MG Ondansetron HCl (Zofran Inj) 4 mg Q6H PRN IV 12/17/16 22:30 01/16/17 22:29 12/18/16 04:34 4 MG Tramadol HCl (Ultram Tab) 25 mg Q6H PRN PO 12/18/16 03:00 01/17/17 02:59 12/18/16 14:23 25 MG Levothyroxine Sodium (Synthroid Tab) 25 mcg DAILYBB PO 12/19/16 06:00 01/18/17 05:59 12/21/16 06:22 25 MCG Nicotine (Nicoderm Cq 21MG Patch) 1 patch QAM TD 12/18/16 17:30 01/17/17 17:29 12/21/16 08:57 1 PATCH Miscellaneous (Remove Nicoderm Patch) 1 ea HS N/A 12/18/16 21:00 01/17/17 20:59 12/20/16 21:00 1 EA Glucose (Glucose 40% Gel) 15-30 GRAMS 15 GRAMS... UD PRN PO 12/19/16 07:45 01/18/17 07:44 Glucose (Glucose Chew Tab) 4-8 Tablets 4 Tabl... UD PRN PO 12/19/16 07:45 01/18/17 07:44 12/20/16 07:17 4 TABS Dextrose (Dextrose 50% 50ML Syringe) 25-50ML OF 50% DW IV FOR... UD PRN IV 12/19/16 07:45 01/18/17 07:44 12/20/16 06:44 25 ML Glucagon (Glucagon Inj) 1 mg UD PRN SQ 12/19/16 07:45 01/18/17 07:44 Hydromorphone HCl (Dilaudid Inj) 0.5 mg Q8 PRN IV 12/20/16 22:00 01/01/17 09:59 12/21/16 08:58 0.5 MG Hydrocortisone Sodium Succinate 50 mg/Syringe 1 ml @ 4 mls/min Q8H IV 12/20/16 22:00 01/19/17 21:59 12/21/16 06:22 4 MLS/MIN Fludrocortisone Acetate (Florinef Tab) 0.1 mg QAM PO 12/22/16 09:00 01/20/17 08:59 Insulin Glargine (Lantus Solostar Pen) 5 unit DAILY [place] 12/22/16 09:00 01/21/17 08:59 Insulin Aspart (novoLOG ASPART) SLIDING SCALE If C... ACHS SC 12/21/16 07:00 01/20/17 06:59 12/21/16 08:03 2 UNITS Cosyntropin 0.25 mg/Syringe 5 ml @ 2.5 mls/min ONE ONCE IV 12/21/16 09:15 12/21/16 09:16 Last 24 Hours Test 12/20/16 11:10 12/20/16 11:56 12/20/16 16:34 12/20/16 19:44 Bedside Glucose 165 mg/dl 249 mg/dl Sodium Level 134 mmol/L 132 mmol/L Potassium Level 4.8 mmol/L 6.1 mmol/L Chloride Level 101 mmol/L 101 mmol/L Carbon Dioxide Level 22 mmol/L 23 mmol/L Anion Gap 11.0 mmol/L 8.0 mmol/L Blood Urea Nitrogen 14 mg/dl 17 mg/dl Creatinine 1.50 mg/dl 1.40 mg/dl Est Creatinine Clear Calc Drug Dose 74.4 ml/min 79.7 ml/min Estimated GFR () 71.4 77.6 Estimated GFR (Non- 61.6 66.9 BUN/Creatinine Ratio 9.6 11.9 Random Glucose 223 mg/dl 155 mg/dl Calcium Level 8.6 mg/dl 8.6 mg/dl HIV (1&2) Ab and P24 Ag, 4th Gener NEG Test 12/20/16 20:12 12/20/16 22:08 12/20/16 22:20 12/21/16 00:22 Bedside Glucose 174 mg/dl 132 mg/dl 129 mg/dl Sodium Level 134 mmol/L Potassium Level 6.3 mmol/L Chloride Level 102 mmol/L Carbon Dioxide Level 20 mmol/L Anion Gap 10.0 mmol/L Blood Urea Nitrogen 18 mg/dl Creatinine 1.40 mg/dl Est Creatinine Clear Calc Drug Dose 79.7 ml/min Estimated GFR () 77.6 Estimated GFR (Non- 66.9 BUN/Creatinine Ratio 13.2 Random Glucose 230 mg/dl Calcium Level 8.1 mg/dl Test 12/21/16 02:17 12/21/16 03:55 12/21/16 06:42 12/21/16 07:57 Bedside Glucose 212 mg/dl 208 mg/dl White Blood Count 7.26 K/uL Red Blood Count 3.36 M/uL Hemoglobin 9.9 g/dL Hematocrit 27.6 % Mean Corpuscular Volume 82.1 fL Mean Corpuscular Hemoglobin 29.5 pg Mean Corpuscular Hemoglobin Concent 35.9 g/dl Platelet Count 147 K/uL Mean Platelet Volume 9.0 fL Neutrophils (%) (Auto) 85.9 % Lymphocytes (%) (Auto) 11.0 % Monocytes (%) (Auto) 3.0 % Eosinophils (%) (Auto) 0.0 % Basophils (%) (Auto) 0.0 % Neutrophils # (Auto) 6.23 K/uL Lymphocytes # (Auto) 0.80 K/uL Monocytes # (Auto) 0.22 K/uL Eosinophils # (Auto) 0.00 K/uL Basophils # (Auto) 0.00 K/uL RDW Standard Deviation 36.0 fL RDW Coefficient of Variation 12.0 % Immature Granulocyte % (Auto) 0.1 % Immature Granulocyte # (Auto) 0.01 K/uL Sodium Level 136 mmol/L Potassium Level 4.8 mmol/L Chloride Level 104 mmol/L Carbon Dioxide Level 22 mmol/L Anion Gap 10.0 mmol/L Blood Urea Nitrogen 18 mg/dl Creatinine 1.20 mg/dl Est Creatinine Clear Calc Drug Dose 92.9 ml/min Estimated GFR () 93.5 Estimated GFR (Non- 80.7 BUN/Creatinine Ratio 14.6 Random Glucose 200 mg/dl Calcium Level 8.2 mg/dl Random Cortisol 57.58 mcg/dl Cortisol Response to Stimulation Cortisol Baseline Test 12/21/16 08:52 Assessment & Plan hyperkalemia-pt with montague complexion and has been fatigued for several years. appears to have a hypoaldo state and benefit from steroids and endocrinology follow up. will need to keep potassium levels stable prior to discharge. will stop the iv fluids since eating and drinking well.
[2016-12-21] MEDS ORDERED: OPTIRAY 320 IV PRN (15:30)
--- NOTE | 2016-12-21 16:21 | DIAGNOSTIC IMAGING REPORT ---
CT SCAN OF THE CHEST WITH IV CONTRAST CLINICAL HISTORY: Lung nodule. COMPARISON STUDY: Chest x-ray dated 12/17/2016. TECHNIQUE: Following the IV administration of 94 cc of Optiray 320, CT scan of the thorax was performed from the thoracic inlet to the upper abdomen. Images are reviewed in the axial, sagittal, and coronal planes. IV contrast was administered without complication. FINDINGS: Thyroid: Imaged portions of the thyroid gland are normal in size and attenuation. Thoracic aorta: The thoracic aorta is normal in caliber and demonstrates standard 3-vessel arch anatomy. No dissection is seen. Pulmonary vasculature: The pulmonary trunk is normal in caliber. There are no filling defects identified in the central pulmonary vessels to indicate pulmonary embolus. Note that this examination was not protocoled for evaluation of the pulmonary arteries. Heart: The heart is normal in size and configuration, and without pericardial effusion. Lungs and pleural spaces: The lungs and pleural spaces are clear. No pulmonary nodule is identified as clinically queried. The trachea and central airways are patent. Mediastinum: There are scattered subcentimeter mediastinal lymph nodes. These are not pathologically enlarged by size criteria. Ruthie: Clear. Axillae: There is no axillary lymphadenopathy. Upper abdomen: Partially visualized upper abdominal viscera is within normal limits. Skeletal structures: No lytic or blastic bony lesions are seen. IMPRESSION: No active disease in the chest. Electronically signed by: Edwin uJárez M.D. 12/21/2016 4:20 PM Dictated Date/Time: 12/21/2016 4:15 PM
--- NOTE | 2016-12-21 16:44 | DIAGNOSTIC IMAGING REPORT ---
CT SCAN OF THE ABDOMEN AND PELVIS COMBO ADRENAL PROTOCOL CLINICAL HISTORY: Hyperkalemia. Acute renal insufficiency. COMPARISON STUDY: Abdominal CT dated 12/14/2016. TECHNIQUE: Before and following the IV administration of 94 cc of Optiray 320, CT scan of the abdomen and pelvis is performed from the lung bases to the proximal femora using the adrenal protocol. Images are reviewed in the axial, sagittal, and coronal planes. IV contrast was administered without complication. Automated dose control exposure was utilized. FINDINGS: Lung bases: The heart is normal in size and without pericardial effusion. The lung bases are clear. Liver: The contrast-enhanced liver is normal in size, contour, and attenuation. There is no intrahepatic biliary ductal dilatation. The hepatic veins and portal veins are patent. Gallbladder: Unremarkable. Spleen: Normal in size and attenuation. Pancreas: Unremarkable. Adrenal glands: The adrenal glands are atrophic. No adrenal lesion is identified. Kidneys: No renal calculi are identified on the unenhanced series. The contrast enhanced kidneys are normal in size and without hydronephrosis. The kidneys enhance and excrete symmetrically. No evidence of urothelial lesion is seen within the renal pelvis bilaterally or involving the proximal ureters. Abdominal vasculature: The abdominal aorta is normal in course and caliber. Bowel: The small bowel and colon are normal in course and caliber. There is moderate colonic fecal retention. The appendix is well-visualized and normal. Peritoneum: There is no intraperitoneal free air or abdominal ascites. There is a tiny fat-containing umbilical hernia. Lymphadenopathy: None. Pelvic viscera: The bladder, prostate, and seminal vesicles are normal as visualized. Skeletal structures: No lytic or blastic lesions are seen. IMPRESSION: 1. There are no acute infectious or inflammatory findings in the abdomen or pelvis. 2. The adrenal glands appear atrophic. No adrenal lesion is identified. Electronically signed by: Edwin Juárez M.D. 12/21/2016 4:43 PM Dictated Date/Time: 12/21/2016 4:37 PM
[2016-12-21] MEDS: QUETIAPINE FUMARATE 25 MG TAB PO SCH (21:56)
--- NOTE | 2016-12-21 22:46 | Progress Note ---
Internal Med Progress Note Date of Service: Dec 21, 2016. Provider Documentation: SUBJECTIVE: wants to know when he can be discharged BP and electrolytes improved after starting IV hydrocortisone OBJECTIVE: Vital Signs-as noted below Exam: General-young male, no sign of distress , [place] complexion Eyes-mildly icteric sclera Lungs-CTA, no wheeze or rales Heart-regular S1/S2 Abdomen-abdomen soft, no tenderness , no rebound ,normal bowel sound Extremities-no lower ext edema Neuro-AAO x3, no focal deficit Lab data as noted below. ASSESSMENT & PLAN: 31 yo Male with hx of polysubstance abuse , presented with confusion , ongoing abdominal pain found to have EDGAR with hyperkalemia, elevated CPK suggestive of rhabdomyolysis KEEGAN'S DISEASE presented with HYPOTENSION /HYPERKALEMIA /HYPONATREMIA /GENERALIZED WEAKNESS symptom has been ongoing for months due to Hypoaldosteronism/Chester's disease random cortisol level low < 0.05 , TSH elevated CT abdomen /pelvis shows atrophic adrenal symptom markedly improved after IV Hydrocortisone appreciate input form Nephrology pt will need Life long oral steroid , Fludrocortisone will need Endocrine follow up HIV /Hepatitis panel ordered to rule out infectious -negative serology Discussed case with Endocrinology Dr Latricia Leon at [facility] ( Dr Chavez is out of office till end of the month ) pt's presentation highly suggestive of Adrenal insufficiency ACTH stem test -in conclusive as pt received IV hydrocortisone prior ACTH , renin , aldosterone level ordered -pending result (reference lab ) Endocrinology recommendation : pt can be start weaning down IV hydrocortisone changed to IV 50 mg q 12 tomorrow if BP and electrolytes remains stable then later can be transitioned to Oral Prednisone 40 mg in AM /20 mg in PM after 24 hrs reduced to 20 mg in AM /10 mg in PM pt can be discharged home with above dose no further reduction in dose till evaluated by Endocrinology in 2-3 weeks Pt will need life long Florinef 0.1 mg daily needs to carry medical alert bracelet stating Hypo Frederick /Chester's disease will need stress dose of Hydrocortisone with any serious infection /sepsis or medical emergency recommend not to start on Thyroid replacement till Hypoaldosterone is corrected elevated TSH could be secondary to acute illness in advertent over correction may lead to Hypoaldo crisis TSH needs to be repeated in 4-6 weeks pt will need close monitoring of labs at Endocrinology office in case there is not endocrine follow up can be arranged in [place] recommend pt should get follow up at [facility] in next 2-3 weeks ATN/EDGAR due to dehydration , vol loss with hypoaldo given IV fluid Cr improved Nephrology following PERSISTED HYPERKALEMIA : due to hypoaldosteronism pt given multiple dose of Kayexalate ; insulin/Dextrose improved after initiation of IV hydrocortisone low k diet follow daily labs appreciate input form nephrology POLYSUBSTANCE ABUSE : hx of drug abuse Urine tx screen + Ecstasy ABDOMINAL PAIN possible due to Hypoaldosteronism symptom improved pt has been requesting IV Dilaudid on schedule ( hx of narcotic abuse ) will limit IV Narcotics ELEVATED CPK : improved with IVF HYPOTHYROIDISM : TSH > 17 needs repeat TSH check in 4-6 weeks DVT PROPHYLAXIS low risk SCD and teds Ambulate DISPOSITION will need to establish with Family physician will need endocrine follow up as out patient willing to Follow at [facility] Will schedule appointment prior to discharge Vital Signs: Date Time Temp Pulse Resp B/P (MAP) Pulse Ox O2 Delivery O2 Flow Rate FiO2 12/21/16 23:59 Room Air 12/21/16 23:52 36.6 69 18 93/51 (65) 98 Room Air 12/21/16 20:00 100 Room Air 12/21/16 19:54 36.5 71 18 91/50 (64) 98 Room Air 12/21/16 16:00 100 Room Air 12/21/16 15:13 37.0 71 16 101/42 (61) 100 Room Air 12/21/16 12:00 99 Room Air 12/21/16 11:28 36.6 75 16 93/53 (66) 99 Room Air 12/21/16 08:00 98 Room Air 12/21/16 07:19 36.4 76 16 90/45 (60) 98 Room Air 12/21/16 04:32 36.4 73 18 101/50 (67) 98 Room Air 12/21/16 04:00 Room Air Lab Results: Results Past 24 Hours Test 12/21/16 02:17 12/21/16 03:55 12/21/16 06:42 12/21/16 07:57 Range/Units Bedside Glucose 212 208 70-99 mg/dl White Blood Count 7.26 4.8-10.8 K/uL Red Blood Count 3.36 4.7-6.1 M/uL Hemoglobin 9.9 14.0-18.0 g/dL Hematocrit 27.6 42-52 % Mean Corpuscular Volume 82.1 80-100 fL Mean Corpuscular Hemoglobin 29.5 25-34 pg Mean Corpuscular Hemoglobin Concent 35.9 32-36 g/dl Platelet Count 147 130-400 K/uL Mean Platelet Volume 9.0 7.4-10.4 fL Neutrophils (%) (Auto) 85.9 % Lymphocytes (%) (Auto) 11.0 % Monocytes (%) (Auto) 3.0 % Eosinophils (%) (Auto) 0.0 % Basophils (%) (Auto) 0.0 % Neutrophils # (Auto) 6.23 1.4-6.5 K/uL Lymphocytes # (Auto) 0.80 1.2-3.4 K/uL Monocytes # (Auto) 0.22 0.11-0.59 K/uL Eosinophils # (Auto) 0.00 0-0.5 K/uL Basophils # (Auto) 0.00 0-0.2 K/uL RDW Standard Deviation 36.0 36.4-46.3 fL RDW Coefficient of Variation 12.0 11.5-14.5 % Immature Granulocyte % (Auto) 0.1 % Immature Granulocyte # (Auto) 0.01 0.00-0.02 K/uL Sodium Level 136 136-145 mmol/L Potassium Level 4.8 3.5-5.1 mmol/L Chloride Level 104 98-107 mmol/L Carbon Dioxide Level 22 21-32 mmol/L Anion Gap 10.0 3-11 mmol/L Blood Urea Nitrogen 18 7-18 mg/dl Creatinine 1.20 0.60-1.40 mg/dl Est Creatinine Clear Calc Drug Dose 92.9 ml/min Estimated GFR () 93.5 Estimated GFR (Non- 80.7 BUN/Creatinine Ratio 14.6 10-20 Random Glucose 200 70-99 mg/dl Calcium Level 8.2 8.5-10.1 mg/dl Random Cortisol 57.58 mcg/dl Cortisol Response to Stimulation Cortisol Baseline Test 12/21/16 11:23 12/21/16 16:28 12/21/16 20:40 Range/Units Bedside Glucose 219 129 159 70-99 mg/dl
[2016-12-22] VITALS (9 sets, daily range): BP systolic 91–111; BP diastolic 46–67; PULSE 54–75; TEMP 36.5–36.9; O2SAT 97–100
[2016-12-22] MEDS: HYDROmorphone INJ 1 MG/ML SYR IV PRN ×3 (01:07→18:18)
[2016-12-22] MEDS: INSULIN ASPART 100 UNITS/ML 3 ML PEN SC SCH ×4 (08:00→21:00)
[2016-12-22] MEDS: NICOTINE 21 MG/24 HR TDSY TD SCH (08:13)
[2016-12-22] MEDS: FLUDROCORTISONE ACETATE 0.1 MG TAB PO SCH (08:13)
[2016-12-22] MEDS: BuPROPion SR 150 MG TABCR PO SCH (08:13)
[2016-12-22] MEDS ORDERED: INSULIN GLARGINE SOLOSTAR 100 UNITS/ML 3 ML PEN SC SCH (09:00)
[2016-12-22] MEDS: HYDROCORTISONE IV 50 MG in SYRINGE 0 ML IV SCH ×2 (09:24→22:05)
[2016-12-22 09:50] LABS: CREATININE 1.1 mg/dl (0.60-1.40); POTASSIUM 3.7 mmol/L (3.5-5.1)
[2016-12-22 09:55] LABS: CALCIUM 8.5 mg/dl (8.5-10.1)
--- NOTE | 2016-12-22 18:30 | Progress Note ---
Medicine Progress Note Date & Time of Visit: Dec 22, 2016 at 18:25. Subjective patient seen sitting up in bed, comfortable states he feels fine overall denies dizziness, weakness, headache, chest pain, dyspnea has intermittent crampy abdominal pain, no problems with BMs, no nausea no other symptoms Objective Last 8 Hrs Date Time Temp Pulse Resp B/P (MAP) Pulse Ox O2 Delivery O2 Flow Rate FiO2 12/22/16 16:58 36.8 54 16 111/67 (82) 100 Room Air 12/22/16 16:31 36.9 58 16 100 12/22/16 16:00 100 Room Air 12/22/16 15:58 36.9 58 16 92/53 (66) 99 Room Air 12/22/16 12:39 36.8 75 16 99/61 (74) 99 Room Air 12/22/16 12:00 99 Room Air Physical Exam: General- oriented x 3, not in distress, speaks in sentences with no effort Head- atraumatic Eyes-EOMI, anicteric ENT- oropharynx clear Neck- supple, no JVD, no adenopathy Lungs- clear to auscultation b/l Heart- regular rhythm; no murmur, normal rate Abdomen- normal bowel sounds, soft, nontender Extremities- no pretibial edema, no calf tenderness; peripheral pulses intact Neuro- alert, oriented x 3; no gross focal deficits Skin- warm & dry Laboratory Results: Last 24 Hours Test 12/21/16 20:40 12/22/16 06:28 12/22/16 09:00 12/22/16 11:49 Bedside Glucose 159 mg/dl 117 mg/dl 101 mg/dl Sodium Level 138 mmol/L Potassium Level 3.7 mmol/L Chloride Level 104 mmol/L Carbon Dioxide Level 25 mmol/L Anion Gap 9.0 mmol/L Blood Urea Nitrogen 20 mg/dl Creatinine 1.10 mg/dl Est Creatinine Clear Calc Drug Dose 98.3 ml/min Estimated GFR () 103.9 Estimated GFR (Non- 89.6 BUN/Creatinine Ratio 18.0 Random Glucose 89 mg/dl Calcium Level 8.5 mg/dl Test 12/22/16 15:57 Bedside Glucose 108 mg/dl Assessment & Plan 31 yo Male with hx of polysubstance abuse , presented with confusion , ongoing abdominal pain found to have EDGAR with hyperkalemia, elevated CPK suggestive of rhabdomyolysis KEEGAN'S DISEASE presented with HYPOTENSION /HYPERKALEMIA /HYPONATREMIA /GENERALIZED WEAKNESS due to Hypoaldosteronism/Keegan's disease CT abdomen /pelvis shows atrophic adrenal HIV /Hepatitis panel ordered to rule out infectious -negative serology symptom markedly improved after IV Hydrocortisone appreciate input form Nephrology pt will need Life long oral steroid , Fludrocortisone will need Endocrine follow up per Dr. Glynn notes: Discussed case with Endocrinology Dr Latricia Leon at [facility] ( Dr Chavez is out of office till end of the month ) pt's presentation highly suggestive of Adrenal insufficiency ACTH stem test -in conclusive as pt received IV hydrocortisone prior ACTH , renin , aldosterone level ordered -pending result (reference lab ) Endocrinology recommendation : pt can be start weaning down IV hydrocortisone changed to IV 50 mg q 12 if BP and electrolytes remains stable then later can be transitioned to Oral Prednisone 40 mg in AM /20 mg in PM after 24 hrs reduced to 20 mg in AM /10 mg in PM pt can be discharged home with above dose no further reduction in dose till evaluated by Endocrinology in 2-3 weeks Pt will need life long Florinef 0.1 mg daily needs to carry medical alert bracelet stating Hypo Frederick /Keegan's disease will need stress dose of Hydrocortisone with any serious infection / sepsis or medical emergency recommend not to start on Thyroid replacement till Hypoaldosterone is corrected elevated TSH could be secondary to acute illness in advertent over correction may lead to Hypoaldo crisis TSH needs to be repeated in 4-6 weeks pt will need close monitoring of labs at Endocrinology office in case there is not endocrine follow up can be arranged in [place] recommend pt should get follow up at [facility] in next 2-3 weeks ATN/EDGAR due to dehydration , vol loss with hypoaldo given IV fluid crea now normal Nephrology following PERSISTENT HYPERKALEMIA : due to hypoaldosteronism pt given multiple dose of Kayexalate ; insulin/Dextrose improved after initiation of IV hydrocortisone -- resolved -- low K diet POLYSUBSTANCE ABUSE : hx of drug abuse Urine tx screen + Ecstasy ABDOMINAL PAIN possible due to Hypoaldosteronism symptom improved PRN Dilaudid, Tramadol ELEVATED CPK : improved with IVF HYPOTHYROIDISM : TSH > 17 needs repeat TSH check in 4-6 weeks DVT PROPHYLAXIS low risk SCD and teds Ambulate DISPOSITION will need to establish with Family physician will need endocrine follow up as out patient willing to Follow at [facility] Will schedule appointment prior to discharge Current Inpatient Medications: Current Inpatient Medications Medications (Trade) Dose Ordered Sig/Juan F Route Start Time Stop Time Status Last Admin Dose Admin Acetaminophen (Tylenol Tab) 650 mg Q4H PRN PO 12/17/16 22:30 01/16/17 22:29 12/18/16 03:04 650 MG Nitroglycerin (Nitrostat Tab) 0.4 mg UD PRN SL 12/17/16 22:30 01/16/17 22:29 Bupropion HCl (Wellbutrin-Sr Tab) 150 mg QAM PO 12/18/16 09:00 01/17/17 08:59 12/22/16 08:13 150 MG Quetiapine Fumarate (seroQUEL TAB) 50 mg HS PO 12/18/16 21:00 01/17/17 20:59 12/21/16 21:56 50 MG Ondansetron HCl (Zofran Inj) 4 mg Q6H PRN IV 12/17/16 22:30 01/16/17 22:29 12/18/16 04:34 4 MG Tramadol HCl (Ultram Tab) 25 mg Q6H PRN PO 12/18/16 03:00 01/17/17 02:59 12/18/16 14:23 25 MG Nicotine (Nicoderm Cq 21MG Patch) 1 patch QAM TD 12/18/16 17:30 01/17/17 17:29 12/22/16 08:13 1 PATCH Miscellaneous (Remove Nicoderm Patch) 1 ea HS N/A 12/18/16 21:00 01/17/17 20:59 12/21/16 20:38 1 EA Glucose (Glucose 40% Gel) 15-30 GRAMS 15 GRAMS... UD PRN PO 12/19/16 07:45 01/18/17 07:44 Glucose (Glucose Chew Tab) 4-8 Tablets 4 Tabl... UD PRN PO 12/19/16 07:45 01/18/17 07:44 12/20/16 07:17 4 TABS Dextrose (Dextrose 50% 50ML Syringe) 25-50ML OF 50% DW IV FOR... UD PRN IV 12/19/16 07:45 01/18/17 07:44 12/20/16 06:44 25 ML Glucagon (Glucagon Inj) 1 mg UD PRN SQ 12/19/16 07:45 01/18/17 07:44 Hydromorphone HCl (Dilaudid Inj) 0.5 mg Q8 PRN IV 12/20/16 22:00 01/01/17 09:59 12/22/16 18:18 0.5 MG Fludrocortisone Acetate (Florinef Tab) 0.1 mg QAM PO 12/22/16 09:00 01/20/17 08:59 12/22/16 08:13 0.1 MG Insulin Glargine (Lantus Solostar Pen) 5 unit DAILY SC 12/22/16 09:00 01/21/17 08:59 12/22/16 08:17 5 UNIT Insulin Aspart (novoLOG ASPART) SLIDING SCALE If C... ACHS SC 12/21/16 07:00 01/20/17 06:59 12/21/16 11:52 2 UNITS Ioversol (Optiray 320) 100 ml UD PRN IV 12/21/16 15:30 12/25/16 15:29 Hydrocortisone Sodium Succinate 50 mg/Syringe 1 ml @ 4 mls/min Q12H IV 12/22/16 10:00 01/21/17 09:59 12/22/16 09:24 4 MLS/MIN
[2016-12-22] MEDS: QUETIAPINE FUMARATE 25 MG TAB PO SCH (22:05)
[2016-12-22] MEDS: TRAMADOL HCL 50 MG TAB PO PRN (22:14)
[2016-12-23] VITALS: BP 96/59; PULSE 61; TEMP 36.6; O2SAT 100
[2016-12-23] MEDS: HYDROmorphone INJ 1 MG/ML SYR IV PRN ×3 (04:23→20:30)
[2016-12-23 06:01] LABS: ESTIMATED AVERAGE GLUCOSE 117 mg/dl; HA1C FLAG Normal (Normal)
[2016-12-23] MEDS: NICOTINE 21 MG/24 HR TDSY TD SCH (06:13)
[2016-12-23 07:14] VITALS: BP 99/54; PULSE 57; TEMP 36.5; O2SAT 99
[2016-12-23 07:32] LABS: BUN/CREATININE RATIO 17.7 (10-20); CALCIUM 8.4 mg/dl (8.5-10.1); CREATININE 0.99 mg/dl (0.60-1.40); POTASSIUM 3.6 mmol/L (3.5-5.1)
[2016-12-23] MEDS: BuPROPion SR 150 MG TABCR PO SCH (08:16)
[2016-12-23] MEDS: FLUDROCORTISONE ACETATE 0.1 MG TAB PO SCH (08:16)
[2016-12-23] MEDS: INSULIN ASPART 100 UNITS/ML 3 ML PEN SC SCH ×4 (09:23→20:22)
[2016-12-23] MEDS ORDERED: NURSING VERBAL MED ORDER ONE (12:45)
[2016-12-23] MEDS ORDERED: ALUMINUM/MAGNESIUM/SIMETH (MAALOX MAX) 30 ML UDC PO PRN (12:45)
[2016-12-23] MEDS ORDERED: ALUMINUM/MAGNESIUM SUSP 30 ML UDC PO PRN (13:00)
[2016-12-23 14:23] VITALS: BP_SYST 107; BP_SYST 135; BP_DIAS 67; BP_DIAS 74; PULSE 51; TEMP 36.9; O2SAT 99
[2016-12-23] MEDS ORDERED: PANTOprazole SOD 40 MG TAB PO STA (17:38)
--- NOTE | 2016-12-23 17:43 | Progress Note ---
Medicine Progress Note Date & Time of Visit: Dec 23, 2016 at 17:40. Subjective seen sitting up in bed, comfortable has intermittent abdominal cramps, relieved with dilaudid no nausea/vomiting, problems with BM denies dizziness, headache, visual changes no chest pain, dyspnea no other symptoms Objective Last 8 Hrs Date Time Temp Pulse Resp B/P (MAP) Pulse Ox O2 Delivery O2 Flow Rate FiO2 12/23/16 16:00 Room Air 12/23/16 14:23 36.9 51 20 107/67 (80) 99 Room Air 2.0 Physical Exam: General- oriented x 3, not in distress, speaks in sentences with no effort Eyes- anicteric Neck- no JVD Lungs- clear to auscultation b/l, no rales/wheezes Heart- regular rhythm; no murmur, normal rate Abdomen- normal bowel sounds, soft, nontender Extremities- no pretibial edema, no calf tenderness Neuro- alert, oriented x 3; no gross focal deficits Skin- warm & dry Laboratory Results: Last 24 Hours Test 12/22/16 20:21 12/23/16 06:37 12/23/16 11:32 12/23/16 16:09 Bedside Glucose 125 mg/dl 104 mg/dl 148 mg/dl Sodium Level 140 mmol/L Potassium Level 3.6 mmol/L Chloride Level 105 mmol/L Carbon Dioxide Level 25 mmol/L Anion Gap 10.0 mmol/L Blood Urea Nitrogen 18 mg/dl Creatinine 0.99 mg/dl Est Creatinine Clear Calc Drug Dose 109.3 ml/min Estimated GFR () 118.0 Estimated GFR (Non- 101.8 BUN/Creatinine Ratio 17.7 Random Glucose 126 mg/dl Calcium Level 8.4 mg/dl Assessment & Plan 31 yo Male with hx of polysubstance abuse , presented with confusion , ongoing abdominal pain found to have EDGAR with hyperkalemia, elevated CPK suggestive of rhabdomyolysis KEEGAN'S DISEASE presented with HYPOTENSION /HYPERKALEMIA /HYPONATREMIA /GENERALIZED WEAKNESS due to Hypoaldosteronism/Talladega's disease CT abdomen /pelvis shows atrophic adrenal HIV /Hepatitis panel ordered to rule out infectious -negative serology symptom markedly improved after IV Hydrocortisone appreciate input form Nephrology pt will need Life long oral steroid , Fludrocortisone will need Endocrine follow up per Dr. Glynn notes: Discussed case with Endocrinology Dr Latricia Leon at [facility] ( Dr Chaevz is out of office till end of the month ) pt's presentation highly suggestive of Adrenal insufficiency ACTH: low normal 6 ACTH stem test -in conclusive as pt received IV hydrocortisone prior renin , aldosterone level ordered -pending result ( reference lab ) Endocrinology recommendation : pt can be start weaning down IV hydrocortisone changed to IV 50 mg q 12 if BP and electrolytes remains stable then later can be transitioned to Oral Prednisone 40 mg in AM /20 mg in PM after 24 hrs reduced to 20 mg in AM /10 mg in PM pt can be discharged home with above dose no further reduction in dose till evaluated by Endocrinology in 2-3 weeks Pt will need life long Florinef 0.1 mg daily needs to carry medical alert bracelet stating Hypo Frederick /Talladega's disease will need stress dose of Hydrocortisone with any serious infection / sepsis or medical emergency recommend not to start on Thyroid replacement till Hypoaldosterone is corrected elevated TSH could be secondary to acute illness in advertent over correction may lead to Hypoaldo crisis TSH needs to be repeated in 4-6 weeks pt will need close monitoring of labs at Endocrinology office in case there is not endocrine follow up can be arranged in [place] recommend pt should get follow up at [facility] in next 2-3 weeks -- BP, Na and K stable taper Prednisone tomorrow will discuss with Endo re: low ACTH ATN/EDGAR due to dehydration , vol loss with hypoaldo given IV fluid crea now normal Nephrology following PERSISTENT HYPERKALEMIA : due to hypoaldosteronism pt given multiple dose of Kayexalate ; insulin/Dextrose improved after initiation of IV hydrocortisone -- resolved -- low K diet POLYSUBSTANCE ABUSE hx of drug abuse Urine tx screen + Ecstasy ABDOMINAL PAIN possible due to Hypoaldosteronism symptom improved PRN Dilaudid, Tramadol ELEVATED CPK : improved with IVF HYPOTHYROIDISM : TSH > 17 needs repeat TSH check in 4-6 weeks DVT PROPHYLAXIS low risk SCD and teds Ambulate DISPOSITION will need to establish with Family physician will need endocrine follow up as out patient willing to Follow at [facility] Will schedule appointment prior to discharge Current Inpatient Medications: Current Inpatient Medications Medications (Trade) Dose Ordered Sig/Juan F Route Start Time Stop Time Status Last Admin Dose Admin Acetaminophen (Tylenol Tab) 650 mg Q4H PRN PO 12/17/16 22:30 01/16/17 22:29 12/18/16 03:04 650 MG Nitroglycerin (Nitrostat Tab) 0.4 mg UD PRN SL 12/17/16 22:30 01/16/17 22:29 Bupropion HCl (Wellbutrin-Sr Tab) 150 mg QAM PO 12/18/16 09:00 01/17/17 08:59 12/23/16 08:16 150 MG Quetiapine Fumarate (seroQUEL TAB) 50 mg HS PO 12/18/16 21:00 01/17/17 20:59 12/22/16 22:05 50 MG Ondansetron HCl (Zofran Inj) 4 mg Q6H PRN IV 12/17/16 22:30 01/16/17 22:29 12/18/16 04:34 4 MG Nicotine (Nicoderm Cq 21MG Patch) 1 patch QAM TD 12/18/16 17:30 01/17/17 17:29 12/23/16 06:13 1 PATCH Miscellaneous (Remove Nicoderm Patch) 1 ea HS N/A 12/18/16 21:00 01/17/17 20:59 12/22/16 21:00 1 EA Glucose (Glucose 40% Gel) 15-30 GRAMS 15 GRAMS... UD PRN PO 12/19/16 07:45 01/18/17 07:44 Glucose (Glucose Chew Tab) 4-8 Tablets 4 Tabl... UD PRN PO 12/19/16 07:45 01/18/17 07:44 12/20/16 07:17 4 TABS Dextrose (Dextrose 50% 50ML Syringe) 25-50ML OF 50% DW IV FOR... UD PRN IV 12/19/16 07:45 01/18/17 07:44 12/20/16 06:44 25 ML Glucagon (Glucagon Inj) 1 mg UD PRN SQ 12/19/16 07:45 01/18/17 07:44 Hydromorphone HCl (Dilaudid Inj) 0.5 mg Q8 PRN IV 12/20/16 22:00 01/01/17 09:59 12/23/16 12:30 0.5 MG Fludrocortisone Acetate (Florinef Tab) 0.1 mg QAM PO 12/22/16 09:00 01/20/17 08:59 12/23/16 08:16 0.1 MG Insulin Aspart (novoLOG ASPART) SLIDING SCALE If C... ACHS SC 12/21/16 07:00 01/20/17 06:59 12/21/16 11:52 2 UNITS Ioversol (Optiray 320) 100 ml UD PRN IV 12/21/16 15:30 12/25/16 15:29 Prednisone (PredniSONE TAB) 40 mg QAM PO 12/23/16 08:00 01/22/17 07:59 12/23/16 08:35 40 MG Prednisone (PredniSONE TAB) 20 mg HS PO 12/23/16 21:00 01/22/17 20:59 Al Hydroxide/Mg Hydroxide (Maalox Susp) 30 ml Q6H PRN PO 12/23/16 13:00 01/22/17 12:59 Tramadol HCl (Ultram Tab) 50 mg Q6H PRN PO 12/23/16 21:00 01/17/17 02:59 UNV
[2016-12-23] MEDS: TRAMADOL HCL 50 MG TAB PO PRN (18:18)
[2016-12-23] MEDS: QUETIAPINE FUMARATE 25 MG TAB PO SCH (21:48)
[2016-12-23 23:15] VITALS: BP 97/47; PULSE 62; TEMP 36.7; O2SAT 97
[2016-12-24] MEDS: HYDROmorphone INJ 1 MG/ML SYR IV PRN (04:29)
[2016-12-24] MEDS: NICOTINE 21 MG/24 HR TDSY TD SCH (05:25)
[2016-12-24] MEDS: TRAMADOL HCL 50 MG TAB PO PRN ×2 (05:29→15:55)
[2016-12-24 05:35] LABS: COMPLETE YES; HEMATOCRIT 30.2 % (42-52); IG% 0.3 %; LYMPH % 21.1 %; LYMPH ABS # 1.41 K/uL (1.2-3.4); MEAN CELL VOLUME 83.2 fL (80-100); MEAN CORPUSCULAR HEMOGLOBIN 28.4 pg (25-34); MEAN CORPUSCULAR HGB CONC 34.1 g/dl (32-36); MEAN PLATELET VOLUME 9.4 fL (7.4-10.4); MONO % 6.4 %; NEUT % 72.2 %; PLATELET COUNT 226 K/uL (130-400); RED BLOOD COUNT 3.63 M/uL (4.7-6.1); WHITE BLOOD COUNT 6.68 K/uL (4.8-10.8)
[2016-12-24 06:21] LABS: BUN/CREATININE RATIO 17.5 (10-20); CALCIUM 8.4 mg/dl (8.5-10.1); CREATININE 0.93 mg/dl (0.60-1.40)
[2016-12-24 07:14] LABS: POTASSIUM 4.4 mmol/L (3.5-5.1)
[2016-12-24 07:16] VITALS: BP 104/65; PULSE 59; TEMP 36.5; O2SAT 99
[2016-12-24] MEDS ORDERED: PANTOprazole SOD 40 MG TAB PO SCH (08:00)
[2016-12-24] MEDS: BuPROPion SR 150 MG TABCR PO SCH (08:15)
[2016-12-24] MEDS: FLUDROCORTISONE ACETATE 0.1 MG TAB PO SCH (08:16)
[2016-12-24] MEDS: INSULIN ASPART 100 UNITS/ML 3 ML PEN SC SCH ×2 (08:16→11:55)
[2016-12-24 08:30] VITALS: O2SAT 99
--- NOTE | 2016-12-24 15:40 | Progress Note ---
Medicine Progress Note Date & Time of Visit: Dec 24, 2016 at 15:16. Subjective patient seen resting in bed, comfortable states he feels fine overall, "never felt this good in 2 years" denies headache, dizziness, dyspnea, chest pain no other symptoms states he is ready and would like to be discharged today Objective Last 8 Hrs Date Time Temp Pulse Resp B/P (MAP) Pulse Ox O2 Delivery O2 Flow Rate FiO2 12/24/16 08:30 99 Room Air Physical Exam: General- oriented x 3, not in distress, speaks in sentences with no effort Eyes- anicteric Lungs- clear breath sounds bilaterally Heart- regular rhythm; no murmur, normal rate Abdomen- normal bowel sounds, soft, nontender Extremities- no pretibial edema, no calf tenderness Neuro- alert, oriented x 3; no gross focal deficits Skin- warm & dry Laboratory Results: Last 24 Hours Test 12/23/16 16:09 12/23/16 20:07 12/24/16 05:13 12/24/16 07:29 Bedside Glucose 148 mg/dl 124 mg/dl 152 mg/dl White Blood Count 6.68 K/uL Red Blood Count 3.63 M/uL Hemoglobin 10.3 g/dL Hematocrit 30.2 % Mean Corpuscular Volume 83.2 fL Mean Corpuscular Hemoglobin 28.4 pg Mean Corpuscular Hemoglobin Concent 34.1 g/dl Platelet Count 226 K/uL Mean Platelet Volume 9.4 fL Neutrophils (%) (Auto) 72.2 % Lymphocytes (%) (Auto) 21.1 % Monocytes (%) (Auto) 6.4 % Eosinophils (%) (Auto) 0.0 % Basophils (%) (Auto) 0.0 % Neutrophils # (Auto) 4.82 K/uL Lymphocytes # (Auto) 1.41 K/uL Monocytes # (Auto) 0.43 K/uL Eosinophils # (Auto) 0.00 K/uL Basophils # (Auto) 0.00 K/uL RDW Standard Deviation 36.1 fL RDW Coefficient of Variation 11.8 % Immature Granulocyte % (Auto) 0.3 % Immature Granulocyte # (Auto) 0.02 K/uL Sodium Level 139 mmol/L Potassium Level 4.4 mmol/L Chloride Level 103 mmol/L Carbon Dioxide Level 28 mmol/L Anion Gap 8.0 mmol/L Blood Urea Nitrogen 16 mg/dl Creatinine 0.93 mg/dl Est Creatinine Clear Calc Drug Dose 116.3 ml/min Estimated GFR () 127.2 Estimated GFR (Non- 109.8 BUN/Creatinine Ratio 17.5 Random Glucose 111 mg/dl Calcium Level 8.4 mg/dl Test 12/24/16 11:40 Bedside Glucose 113 mg/dl Assessment & Plan 31 yo Male with hx of polysubstance abuse , presented with confusion , ongoing abdominal pain found to have EDGAR with hyperkalemia, elevated CPK suggestive of rhabdomyolysis ADRENAL INSUFFICIENCY - presented with hypotension, hyperkalemia, hyponatremia, weakness - random cortisol 12/20/16: < 0.5 then given Hydrocortisone 2 doses, then ACTH, Cosyntropin test done 12/21/16 ACTH: 6 Cosyntropin test: 55 --> 43--> 34 TSH 17 (high): Free T4 0.85 renin/aldosterone: pending CT abdomen /pelvis: shows atrophic adrenal gland HIV /Hepatitis panel ordered to rule out infectious -negative serology - Dr. Glynn discussed case with Dr. Latricia Leon from [facility] (Dr. Chavez on leave until 01/12/17) advised Hydrocortisone IV symptom markedly improved after IV Hydrocortisone then tapered to Prednisone - patient's BP, electrolytes remained stable - case discussed again with Dr. Latricia Leon, with the following discharge recommendations: continue Florinef 0.1mg daily in AM indefinitely continue Hydrocortisone BID: 20mg in AM, 10mg in late afternoon (8 hours apart) indefinitely no further reduction in dose till evaluated by Endocrinology in 2 weeks repeat K and Na on follow up with PCP next week will need further work up as outpatient to classify primary vs. secondary vs. tertiary adrenal insufficiency recommend not to start on Thyroid replacement till Hypoaldosterone is corrected elevated TSH could be secondary to acute illness in advertent over correction may lead to hypoaldo crisis TSH needs to be repeated in 4-6 weeks needs to carry medical alert bracelet stating Hypo [place] /[place]'s disease will need stress dose of Hydrocortisone with any serious infection /sepsis or medical emergency ACUTE RENAL FAILURE, RESOLVED due to dehydration , volume loss with hypoaldo given IV fluid crea now normal Dr. Thomason from Nephrology consulted PERSISTENT HYPERKALEMIA due to hypoaldosteronism pt given multiple dose of Kayexalate ; insulin/Dextrose improved after initiation of IV hydrocortisone -- resolved -- low K diet POLYSUBSTANCE ABUSE hx of drug abuse Urine tx screen + Ecstasy ABDOMINAL PAIN possible due to Hypoaldosteronism, Gastritis from steroids? trial of Prilosec daily PRN Dilaudid, Tramadol given ELEVATED CPK improved with IVF HYPOTHYROIDISM : TSH 17 needs repeat TSH check in 4-6 weeks recommend not to start on Thyroid replacement till Hypoaldosterone is corrected elevated TSH could be secondary to acute illness in advertent over correction may lead to Hypoaldo crisis TSH needs to be repeated in 4-6 weeks DVT PROPHYLAXIS low risk SCD and teds Ambulate DISPOSITION ff up with PCP next week ff up with Josefa Sam in 2 weeks discussed plan of care with patient in detail and at length advised take medications as directed , never miss a dose, call PCP or return to ER immediately if with symptoms, not feeling well, having signs of infection, ff up with PCP and Endo regularly emphasized the severity of his disease and not following above may lead to dire consequences, even patient verbalized understanding and agreement, he is appreciative Current Inpatient Medications: Current Inpatient Medications Medications (Trade) Dose Ordered Sig/Juan F Route Start Time Stop Time Status Last Admin Dose Admin Acetaminophen (Tylenol Tab) 650 mg Q4H PRN PO 12/17/16 22:30 01/16/17 22:29 12/18/16 03:04 650 MG Nitroglycerin (Nitrostat Tab) 0.4 mg UD PRN SL 12/17/16 22:30 01/16/17 22:29 Bupropion HCl (Wellbutrin-Sr Tab) 150 mg QAM PO 12/18/16 09:00 01/17/17 08:59 12/24/16 08:15 150 MG Quetiapine Fumarate (seroQUEL TAB) 50 mg HS PO 12/18/16 21:00 01/17/17 20:59 12/23/16 21:48 50 MG Ondansetron HCl (Zofran Inj) 4 mg Q6H PRN IV 12/17/16 22:30 01/16/17 22:29 12/18/16 04:34 4 MG Nicotine (Nicoderm Cq 21MG Patch) 1 patch QAM TD 12/18/16 17:30 01/17/17 17:29 12/24/16 05:25 1 PATCH Miscellaneous (Remove Nicoderm Patch) 1 ea HS N/A 12/18/16 21:00 01/17/17 20:59 12/23/16 20:20 1 EA Glucose (Glucose 40% Gel) 15-30 GRAMS 15 GRAMS... UD PRN PO 12/19/16 07:45 01/18/17 07:44 Glucose (Glucose Chew Tab) 4-8 Tablets 4 Tabl... UD PRN PO 12/19/16 07:45 01/18/17 07:44 12/20/16 07:17 4 TABS Dextrose (Dextrose 50% 50ML Syringe) 25-50ML OF 50% DW IV FOR... UD PRN IV 12/19/16 07:45 01/18/17 07:44 12/20/16 06:44 25 ML Glucagon (Glucagon Inj) 1 mg UD PRN SQ 12/19/16 07:45 01/18/17 07:44 Hydromorphone HCl (Dilaudid Inj) 0.5 mg Q8 PRN IV 12/20/16 22:00 01/01/17 09:59 12/24/16 04:29 0.5 MG Fludrocortisone Acetate (Florinef Tab) 0.1 mg QAM PO 12/22/16 09:00 01/20/17 08:59 12/24/16 08:16 0.1 MG Insulin Aspart (novoLOG ASPART) SLIDING SCALE If C... ACHS SC 12/21/16 07:00 01/20/17 06:59 12/21/16 11:52 2 UNITS Ioversol (Optiray 320) 100 ml UD PRN IV 12/21/16 15:30 12/25/16 15:29 Al Hydroxide/Mg Hydroxide (Maalox Susp) 30 ml Q6H PRN PO 12/23/16 13:00 01/22/17 12:59 Tramadol HCl (Ultram Tab) 50 mg Q6H PRN PO 12/23/16 17:43 01/22/17 17:42 12/24/16 05:29 50 MG Pantoprazole Sodium (Protonix Tab) 40 mg QAM PO 12/24/16 08:00 01/23/17 07:59 12/24/16 08:15 40 MG Hydrocortisone (Cortef Tab) 20 mg QAM PO 12/25/16 08:00 01/24/17 07:59 Hydrocortisone (Cortef Tab) 10 mg DAILY@1600 PO 12/24/16 16:00 01/23/17 15:59
[2016-12-24] MEDS ORDERED: OMEP40CA41 PO (15:47)
[2016-12-24] MEDS ORDERED: HYD10 PO ×2 (15:47)
[2016-12-24] MEDS ORDERED: FLUD0.1T PO (15:47)
[2016-12-24 15:48] VITALS: BP 104/65; PULSE 59; TEMP 36.5; O2SAT 99
--- NOTE | 2016-12-24 15:56 | Discharge Instructions ---
Discharge Instructions Date of Service Dec 24, 2016. Admission Reason for Admission: Arf, Hyperkalemia Discharge Discharge Diagnosis / Problem: ADRENAL INSUFFICIENCY (KEEGAN'S DISEASE) Discharge Goals Goal(s): Diagnostic testing, Therapeutic intervention Activity Recommendations Activity Limitations: as noted below (NO HEAVY EXERTION UNTIL SEEN BY PRIMARY CARE PHYSICIAN) Lifting Limitations: until after follow-up appointment Exercise/Sports Limitations: until after follow-up appointment . Instructions / Follow-Up Instructions / Follow-Up PLEASE REVIEW YOUR NEW MEDICATION LIST AND FOLLOW INSTRUCTIONS VERY CAREFULLY. TAKE HYDROCORTISONE TABLET 8 HOURS APART (MORNING AND IN THE AFTERNOON). NEVER MISS A MEDICATION DOSE. ALWAYS ENSURE YOU HAVE ADEQUATE MEDICATION SUPPLY. CALL YOUR PRIMARY CARE PHYSICIAN OR RETURN TO ER IMMEDIATELY IF YOU ARE HAVING RECURRENCE OF SYMPTOMS, NOT FEELING WELL, HAVING FEVER/CHILLS, SIGNS OF INFECTION, WEAKNESS, NAUSEA/ VOMITING, INCREASING ABDOMINAL PAIN. FOLLOW UP WITH PRIMARY CARE PHYSICIAN DR. ADAL WAY ON DECEMBER 27, 2016Tuesday AT 10:05 AM, [facility]. [address] [place] [address] FOLLOW UP WITH CUSTOMER MARKETING INTERN DR. PEBBLES OLIVERA AT [facility] IN [place], [place] IN 2 WEEKS. THE CLINIC WILL CALL YOU FOR THE APPOINTMENT WITH HER. PLEASE MAKE IT TO YOUR DOCTORS' APPOINTMENT AND FOLLOW WITH THEM CLOSELY ADVISED. Current Hospital Diet Patient's current hospital diet: Low Potassium Diet (2g K) Discharge Diet Recommended Diet: Low Potassium Diet (2g K) Pending Studies Studies pending at discharge: yes List of pending studies: REPEAT BLOOD WORK (PARTIAL RENAL PROFILE) WITH PRIMARY CARE PHYSICIAN ON FOLLOW UP NEXT WEEK. Laboratory Results Hemoglobin A1c Test 12/22/16 09:00 Range/Units Estimated Average Glucose 117 mg/dl Hemoglobin A1c 5.7 H 4.5-5.6 % Medical Emergencies . Who to Call and When: Medical Emergencies: If at any time you feel your situation is an emergency, please call 911 immediately. . Non-Emergent Contact Non-Emergency issues call your: Primary Care Provider, Hospital Doctor ([facility] HOSPITALIST TEL. NO. [phone]) Call Non-Emergent contact if: you have a fever, your pain is not controlled, your pain is worsening, you have any medication questions . Past History Medical & Surgical History: (1) Acute renal failure (2) Vomiting and diarrhea (3) Hyperkalemia (4) ARF (acute renal failure) . "Provider Documentation" section prepared by Jenaro Finn. . VTE Core Measure Inpt VTE Proph given/why not?: SCD's
[2016-12-24] MEDS ORDERED: FLUDROCORTISONE ACETATE 0.1 MG TAB PO SCH (16:00)
[2016-12-24] MEDS ORDERED: HYDROCORTISONE 10 MG TAB PO SCH ×3 (16:00)
--- NOTE | 2016-12-24 16:13 | Discharge Summary ---
Discharge Summary Date of Service Dec 24, 2016. Discharge Summary Admission Date: Dec 17, 2016 at 21:55 Discharge Date: Dec 24, 2016 Discharge Disposition: Home Principal Diagnosis: ADRENAL INSUFFICIENCY, NEW DIAGNOSIS Secondary Diagnoses/Problems: PLEASE REFER TO HOSPITAL COURSE BELOW. Procedures: CT SCAN OF THE ABDOMEN AND PELVIS COMBO ADRENAL PROTOCOL CLINICAL HISTORY: Hyperkalemia. Acute renal insufficiency. COMPARISON STUDY: Abdominal CT dated 12/14/2016. TECHNIQUE: Before and following the IV administration of 94 cc of Optiray 320, CT scan of the abdomen and pelvis is performed from the lung bases to the proximal femora using the adrenal protocol. Images are reviewed in the axial, sagittal, and coronal planes. IV contrast was administered without complication. Automated dose control exposure was utilized. FINDINGS: Lung bases: The heart is normal in size and without pericardial effusion. The lung bases are clear. Liver: The contrast-enhanced liver is normal in size, contour, and attenuation. There is no intrahepatic biliary ductal dilatation. The hepatic veins and portal veins are patent. Gallbladder: Unremarkable. Spleen: Normal in size and attenuation. Pancreas: Unremarkable. Adrenal glands: The adrenal glands are atrophic. No adrenal lesion is identified. Kidneys: No renal calculi are identified on the unenhanced series. The contrast enhanced kidneys are normal in size and without hydronephrosis. The kidneys enhance and excrete symmetrically. No evidence of urothelial lesion is seen within the renal pelvis bilaterally or involving the proximal ureters. Abdominal vasculature: The abdominal aorta is normal in course and caliber. Bowel: The small bowel and colon are normal in course and caliber. There is moderate colonic fecal retention. The appendix is well-visualized and normal. Peritoneum: There is no intraperitoneal free air or abdominal ascites. There is a tiny fat-containing umbilical hernia. Lymphadenopathy: None. Pelvic viscera: The bladder, prostate, and seminal vesicles are normal as visualized. Skeletal structures: No lytic or blastic lesions are seen. IMPRESSION: 1. There are no acute infectious or inflammatory findings in the abdomen or pelvis. 2. The adrenal glands appear atrophic. No adrenal lesion is identified. CT SCAN OF THE CHEST WITH IV CONTRAST CLINICAL HISTORY: Lung nodule. COMPARISON STUDY: Chest x-ray dated 12/17/2016. TECHNIQUE: Following the IV administration of 94 cc of Optiray 320, CT scan of the thorax was performed from the thoracic inlet to the upper abdomen. Images are reviewed in the axial, sagittal, and coronal planes. IV contrast was administered without complication. FINDINGS: Thyroid: Imaged portions of the thyroid gland are normal in size and attenuation. Thoracic aorta: The thoracic aorta is normal in caliber and demonstrates standard 3-vessel arch anatomy. No dissection is seen. Pulmonary vasculature: The pulmonary trunk is normal in caliber. There are no filling defects identified in the central pulmonary vessels to indicate pulmonary embolus. Note that this examination was not protocoled for evaluation of the pulmonary arteries. Heart: The heart is normal in size and configuration, and without pericardial effusion. Lungs and pleural spaces: The lungs and pleural spaces are clear. No pulmonary nodule is identified as clinically queried. The trachea and central airways are patent. Mediastinum: There are scattered subcentimeter mediastinal lymph nodes. These are not pathologically enlarged by size criteria. Ruthie: Clear. Axillae: There is no axillary lymphadenopathy. Upper abdomen: Partially visualized upper abdominal viscera is within normal limits. Skeletal structures: No lytic or blastic bony lesions are seen. IMPRESSION: No active disease in the chest. CT SCAN OF THE BRAIN WITHOUT IV CONTRAST CLINICAL HISTORY: Headache. Change in mental status. COMPARISON STUDY: No priors. TECHNIQUE: Unenhanced axial CT scan of the brain is performed from the vertex to the skull base. Automated dose control exposure was utilized. CT DOSE: 614.27 mGy.cm FINDINGS: Brain parenchyma: The brain parenchyma is normal in appearance. There is no hemorrhage, mass effect, or evidence of acute territorial ischemia by CT criteria. Henry-white matter is preserved. No extra-axial fluid collection is seen. Ventricles, sulci, cisterns: Normal in configuration. Intracranial vasculature: The visualized intracranial vasculature at the skull base is normal in appearance. Calvarium: Unremarkable. Sinuses and mastoids: The visualized paranasal sinuses are clear. The mastoid air cells are well pneumatized. Orbits: The bony orbits are grossly intact. IMPRESSION: No acute intracranial abnormality. Pending Studies/Follow-Up: PLEASE REPEAT PRP (RE: HYPONATREMIA, HYPERKALEMIA) AND OBTAIN 21 HYDROXYLASE ANTIBODY ON FOLLOW UP 12/27/16; PATIENT NEEDS ENDOCRINOLOGY FF UP IN 2 WEEKS ( DR. CHAVEZ ON VACATION; [facility] AGREEABLE TO SEE PATIENT FOR THE MEAN TIME; PER CLINIC, THEY WILL CALL PATIENT; PLEASE VERIFY APPOINTMENT); PLEASE REFER TO HOSPITAL COURSE BELOW FOR FURTHER DETAILS. Medication Reconciliation New Medications: Omeprazole (Prilosec) 40 Mg Cap 40 MG PO DAILY for 30 Days, #30 CAP 1 Refill take 30 minutes before first meal of the day Fludrocortisone Acetate (Fludrocortisone Acetate) 0.1 Mg Tab 0.1 MG PO QAM for 30 Days, #30 TAB 2 Refills Hydrocortisone (Cortef) 10 Mg Tab 20 MG PO QAM for 30 Days, #60 TAB 2 Refills Hydrocortisone (Cortef) 10 Mg Tab 10 MG PO DAILY@1500 for 30 Days, #30 TAB 2 Refills Continued Medications: Bupropion (Wellbutrin Sr) 150 Mg Ertab 150 MG PO QAM Ondansetron Hcl (Zofran) 4 Mg Tab 4 MG PO Q6H PRN for Nausea or Vomiting, #14 TAB Quetiapine Fumarate (Seroquel) 50 Mg Tab 50 MG PO HS Admission Information HPI (per Admitting provider): CHIEF COMPLAINT: Abdominal pain. HISTORY OF PRESENT ILLNESS: History was obtained from patient records and patient's landlady, [facility]. Mhx significant for past substance abuse, tobacco abuse and schizophrenia. About a week ago, patient noted diffuse abdominal pain, achy, with nausea and vomiting, initially with brown watery stools. Px was seen at the Emergency Room a few days ago. CT abdomen and pelvis showed no bowel obstruction, mildly prominent ileocolic lymph nodes. No colitis. Potassium was noted to be 5.9, sodium 130 and creatinine of 1.6. Patient was discharged home, had intractable pain at home. Patient returned to the Emergency Room. Patient's landlady suspects recurrence of opioid addictive tendencies. At the Emergency Room, the patient was noted to be disoriented after being given a dose of Morphine: Patient denies chest pain or shortness of breath. He admits to some headache. He denies bladder symptoms, cannot say if he is constipated or having diarrhea. Physical Exam (per Admitting): VITAL SIGNS: Blood pressure was noted to be 93/56, pulse 68, RR 18, temperature 36.8 and sats 98 on room air. GENERAL: Noted to be disoriented, in no respiratory distress. HEENT: [place] palpebral conjunctivae. Dry mucosa. NECK: No JVD. supple CHEST: Decreased effort. HEART: Regular rate and rhythm. ABDOMEN: Some distention. No overt tenderness. EXTREMITIES: No edema. no tenderness NEUROLOGIC: No gross focality except for disorientation. Hospital Course 31 yo Male presented with confusion , ongoing abdominal pain found to have EDGAR with hyperkalemia, elevated CPK suggestive of rhabdomyolysis ADRENAL INSUFFICIENCY, NEW DIAGNOSIS - presented with hypotension, hyperkalemia, hyponatremia, weakness - random cortisol 12/20/16: < 0.5 then, was given Hydrocortisone 2 doses, then, ACTH, Cosyntropin test done 12/21/16 ACTH: 6 Cosyntropin test: 55 --> 43--> 34 TSH 17 (high): Free T4 0.85 renin 12 aldosterone: < 4 CT abdomen /pelvis: shows atrophic adrenal gland HIV /Hepatitis panel ordered to rule out infectious -negative serology - Dr. Glynn discussed case with Dr. Pebbles Leon from [facility] (Dr. Chavez on leave until 01/12/17) advised Hydrocortisone IV symptom markedly improved after IV Hydrocortisone then tapered to Prednisone - patient's BP, electrolytes remained stable - case discussed again with Dr. Pebbles Leon, with the following discharge recommendations: continue Florinef 0.1mg daily in AM indefinitely continue Hydrocortisone BID: 20mg in AM, 10mg in late afternoon (8 hours apart) indefinitely no further reduction in dose till evaluated by Endocrinology in 2 weeks repeat K and Na on follow up with PCP next week will need further work up as outpatient to classify primary vs. secondary vs. tertiary adrenal insufficiency recommend not to start on Thyroid replacement till Hypoaldosterone is corrected elevated TSH could be secondary to acute illness in advertent over correction may lead to hypoaldo crisis TSH needs to be repeated in 4-6 weeks needs to carry medical alert bracelet stating Hypo [place] /[place]'s disease needs to be prescribed with Dexamethasone Injection to be given IM PRN for symptoms of adrenal crisis will need stress dose of Hydrocortisone with any serious infection /sepsis or medical emergency ACUTE RENAL FAILURE, RESOLVED due to dehydration , volume loss with hypoaldo given IV fluid crea now normal Dr. Thomason from Nephrology consulted PERSISTENT HYPERKALEMIA due to hypoaldosteronism pt given multiple dose of Kayexalate ; insulin/Dextrose improved after initiation of IV hydrocortisone -- resolved -- low K diet POSSIBLE PRE DIABETES a1c 5.7 monitor closely POLYSUBSTANCE ABUSE hx of drug abuse Urine tx screen + Ecstasy ABDOMINAL PAIN possible due to Hypoaldosteronism, Gastritis from steroids? trial of Prilosec daily PRN Dilaudid, Tramadol given ELEVATED CPK improved with IVF HYPOTHYROIDISM : TSH 17 needs repeat TSH check in 4-6 weeks recommend not to start on Thyroid replacement till Hypoaldosterone is corrected elevated TSH could be secondary to acute illness in advertent over correction may lead to Hypoaldo crisis TSH needs to be repeated in 4-6 weeks DISPOSITION ff up with PCP next week ff up with Josefa Sam in 2 weeks discussed plan of care with patient in detail and at length advised take medications as directed , never miss a dose, call PCP or return to ER immediately if with symptoms, not feeling well, having signs of infection, ff up with PCP and Endo regularly emphasized the severity of his disease and not following above may lead to dire consequences, even patient verbalized understanding and agreement, he is appreciative Total time spent on discharge = 60 minutes This includes examination of the patient, discharge planning, medication reconciliation, and communication with other providers. Discharge Instructions Discharge Instructions Date of Service Dec 24, 2016. Admission Reason for Admission: Arf, Hyperkalemia Discharge Discharge Diagnosis / Problem: ADRENAL INSUFFICIENCY (KEEGAN'S DISEASE) Discharge Goals Goal(s): Diagnostic testing, Therapeutic intervention Activity Recommendations Activity Limitations: as noted below (NO HEAVY EXERTION UNTIL SEEN BY PRIMARY CARE PHYSICIAN) Lifting Limitations: until after follow-up appointment Exercise/Sports Limitations: until after follow-up appointment . Instructions / Follow-Up Instructions / Follow-Up PLEASE REVIEW YOUR NEW MEDICATION LIST AND FOLLOW INSTRUCTIONS VERY CAREFULLY. TAKE HYDROCORTISONE TABLET 8 HOURS APART (MORNING AND IN THE AFTERNOON). NEVER MISS A MEDICATION DOSE. ALWAYS ENSURE YOU HAVE ADEQUATE MEDICATION SUPPLY. CALL YOUR PRIMARY CARE PHYSICIAN OR RETURN TO ER IMMEDIATELY IF YOU ARE HAVING RECURRENCE OF SYMPTOMS, NOT FEELING WELL, HAVING FEVER/CHILLS, SIGNS OF INFECTION, WEAKNESS, NAUSEA/ VOMITING, INCREASING ABDOMINAL PAIN. FOLLOW UP WITH PRIMARY CARE PHYSICIAN DR. ADAL WAY ON DECEMBER 27, 2016Tuesday AT 10:05 AM, [facility]. [address] [place] [address] FOLLOW UP WITH DIGITAL COLOR PRESS OPERATOR DR. PEBBLES LEON AT [facility] IN [place], [place]. IN 2 WEEKS. THE CLINIC WILL CALL YOU FOR THE APPOINTMENT WITH HER. PLEASE MAKE IT TO YOUR DOCTORS' APPOINTMENT AND FOLLOW WITH THEM CLOSELY ADVISED. Current Hospital Diet Patient's current hospital diet: Low Potassium Diet (2g K) Discharge Diet Recommended Diet: Low Potassium Diet (2g K) Pending Studies Studies pending at discharge: yes List of pending studies: REPEAT BLOOD WORK (PARTIAL RENAL PROFILE) WITH PRIMARY CARE PHYSICIAN ON FOLLOW UP NEXT WEEK. Laboratory Results Hemoglobin A1c Test 12/22/16 09:00 Range/Units Estimated Average Glucose 117 mg/dl Hemoglobin A1c 5.7 H 4.5-5.6 % Medical Emergencies . Who to Call and When: Medical Emergencies: If at any time you feel your situation is an emergency, please call 911 immediately. . Non-Emergent Contact Non-Emergency issues call your: Primary Care Provider, Hospital Doctor ([facility] HOSPITALIST TEL. NO. [phone]) Call Non-Emergent contact if: you have a fever, your pain is not controlled, your pain is worsening, you have any medication questions . Past History Medical & Surgical History: (1) Acute renal failure (2) Vomiting and diarrhea (3) Hyperkalemia (4) ARF (acute renal failure) . "Provider Documentation" section prepared by Jenaro Finn. . VTE Core Measure Inpt VTE Proph given/why not?: SCD's
[2016-12-25] MEDS ORDERED: HYDROCORTISONE 10 MG TAB PO SCH (08:00)
== END 2016-12-24 16:12 | disposition home or self-care (01) | DRG 644 ==
LOC: C.EDB 17:09 → C.2T 21:55 → ENRESERV 22:22 → C.4E 12-22 16:35
PROVIDERS: ADMIT Internal Medicine; ATTEND Internal Medicine
DX: E27.40 Unspecified adrenocortical insufficiency (principal); N17.9 Acute kidney failure, unspecified; E87.1 Hypo-osmolality and hyponatremia; F17.200 Nicotine dependence, unspecified, uncomplicated; E87.5 Hyperkalemia; F20.9 Schizophrenia, unspecified; K59.03 Drug induced constipation; T40.605A Adverse effect of unspecified narcotics, initial encounter

== ENCOUNTER 2016-12-24 18:02 | Emergency (ER) | payer OTHER ==
[~2016-12-24] VITALS: Ht 177.8 cm; Wt 70.2 kg
[~2016-12-24 18:02] MED LIST changes: +FLUD0.1T PO; +HYD10 PO; +OMEP40CA41 PO
[2016-12-24 18:08] VITALS: TEMP 36.8; Ht 177.8 cm; Wt 70.2 kg
[2016-12-24] MEDS ORDERED: OXYMETAZOLINE HCL 0.05% NA SPR 15 ML BTL ONE (18:33)
[2016-12-24] MEDS ORDERED: ACETAMINOPHEN 500 MG TAB PO STA (18:54)
[2016-12-24 19:37] VITALS: BP 103/63; PULSE 58; O2SAT 99
--- NOTE | 2016-12-25 00:40 | EMERGENCY ROOM VISIT NOTE ---
History Report prepared by Cristela: Mumtaz Lisa Under the Supervision of: Dr. Lars Arvizu D.O. First contact with patient: 18:28 Chief Complaint: NOSE BLEED (MINOR) Stated Complaint: SEVERE NOSE BLEED,JUST LEFT ER History of Present Illness The patient is a 31 year old male who presents to the Emergency Room with complaints of a sudden, resolved epistaxis beginning prior to arrival. He currently rates his discomfort a 5/10 in severity. The patient states that he was walking around [place] and began getting a headache. He reports that he asked where the pharmacy was, and he could not hear what the person was saying. The patient states it seemed like his ears stopped working. He reports that he was on his way home when his epistaxis began. He notes that he does not know what side of his nose the epistaxis started on. The patient notes that he can not feel blood running down the back of his throat, but he could taste blood. He denies picking his nose or blowing it. The patient reports he currently has a headache and is anxious. He notes that he was discharged from the hospital this morning. The patient reports that he was diagnosed with [place]'s disease and spent the last 9 days being treated as an inpatient. Source of History: patient Onset: prior to arrival Position: nose Symptom Intensity: 5/10 Quality: other (epistaxis) Timing: resolved Associated Symptoms: + headache Review of Systems See HPI for pertinent positives & negatives. A total of 10 systems reviewed and were otherwise negative. Past Medical & Surgical Medical Problems: (1) ARF (acute renal failure) (2) No active medical problems Family History Cancer Diabetes mellitus FH: heart disease Social History Smoking Status: Current Every Day Smoker Alcohol Use: occasionally Marital Status: single Occupation Status: employed Current/Historical Medications Scheduled Bupropion (Wellbutrin Sr), 150 MG PO QAM Fludrocortisone Acetate (Fludrocortisone Acetate), 0.1 MG PO QAM Hydrocortisone (Cortef), 20 MG PO QAM Hydrocortisone (Cortef), 10 MG PO DAILY@1500 Omeprazole (Prilosec), 40 MG PO DAILY Quetiapine Fumarate (Seroquel), 50 MG PO HS Scheduled PRN Ondansetron Hcl (Zofran), 4 MG PO Q6H PRN for Nausea or Vomiting Allergies Coded Allergies: No Known Allergies (Unverified , 12/24/16) Physical Exam Vital Signs Date Time Temp Pulse Resp B/P (MAP) Pulse Ox O2 Delivery O2 Flow Rate FiO2 12/24/16 19:37 58 16 103/63 99 Room Air 12/24/16 18:08 36.8 65 18 125/79 100 Room Air Physical Exam GENERAL: alert, well appearing, well nourished, no distress, non-toxic, sitting up in bed. EYE EXAM: normal conjunctiva, PERRL and EOM's grossly intact OROPHARYNX: no exudate, no erythema, lips, buccal mucosa, and tongue normal and mucous membranes are moist NOSE: Nasal clamp in place, it was removed. No obvious active bleeding. No septal trauma. NECK: supple, no nuchal rigidity, no adenopathy, non-tender LUNGS: Clear to auscultation. Normal chest wall mechanics HEART: no murmurs, S1 normal and S2 normal ABDOMEN: abdomen soft, non-tender, normo-active bowel sounds, no masses, no rebound or guarding. SKIN: no rashes and no bruising UPPER EXTREMITIES: upper extremities are grossly normal. LOWER EXTREMITIES: No pitting edema. NEURO EXAM: Normal sensorium, cranial nerves II-XII intact, normal speech, no weakness of arms, no weakness of legs. Medical Decision & Procedures Medications Administered Medications (Trade) Dose Ordered Sig/Juan F Route Start Time Stop Time Status Last Admin Dose Admin Oxymetazoline HCl (Afrin 0.05% Nasal [place]) 75 sprays STK-MED ONCE .ROUTE 12/24/16 18:33 12/24/16 18:34 DC 12/24/16 18:33 75 SPRAYS Acetaminophen (Tylenol Tab) 1,000 mg NOW STAT PO 12/24/16 18:54 12/24/16 18:55 DC 12/24/16 19:16 1,000 MG ED Course ED COURSE: Vital signs were reviewed and showed hypertension. The patients medical record was reviewed The above diagnostic studies were performed and reviewed. ED treatments and interventions as stated above. 1831: The patient was evaluated in room A03. A complete history and physical examination was performed. 1832: Ordered Oxymetazoline HCl 75 sprays .ROUTE 1853: Ordered Acetaminophen 1,000 mg PO 1921: Upon reevaluation, the patient is resting and in no distress. He has no bleeding and no epistaxis visualized. I discussed the discharge instructions with him. He verbalized complete understanding. The patient was discharged. Based on the patients age, coexisting illnesses, exam and lab findings the decision to treat as an outpatient was made. The patient remained stable while under my care. The patient appeared well at the time of discharge. Medical Decision Etiologies such as anterior epistaxis, coagulopathy, traumatic injury, fracture , septal hematoma, posterior epistaxis as well as other pathologies were entertained. Medication Reconciliation: I attest that I have personally reviewed the patient' s current medication list. Blood pressure screening: Patient was found to have an elevated blood pressure and was referred to their primary doctor for recheck and further treatment. Patient is a 31-year-old male who presents the ER for epistaxis. 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 He notes that on his way home started had bleeding from his nose. Upon my evaluation the bleeding is stopped. Nasal clamp was removed and Afrin was placed. He was watched for 30 minutes. Nasal clamp was again removed and there is no bleeding. Cannot find source of his bleeding. Patient was discharged follow-up with his PCP. Discussed with Pt concerning signs and symptoms to watch out for. Pt was instructed to follow up with their PCP and discussed with the patient their option to return to the ED at anytime for persistent or worsening symptoms. The appropriate anticipatory guidance and out-patient management, including indications for return to the emergency department, were explained at length to the patient and understood. Impression Primary Impression: Epistaxis Scribe Attestation The scribe's documentation has been prepared under my direction and personally reviewed by me in its entirety. I confirm that the note above accurately reflects all work, treatment, procedures, and medical decision making performed by me. Departure Information Dispostion Home / Self-Care Referrals No Doctor, Assigned (PCP) Forms HOME CARE DOCUMENTATION FORM, IMPORTANT VISIT INFORMATION, WORK / SCHOOL INSTRUCTIONS Patient Instructions ED Nosebleed, My [facility] [email or web address] Additional Instructions Please follow up with your primary care doctor with in the next 24 hours. Any worsening of your symptoms, please return to the ED immediately. This includes recurrent bleeding, passing out, if you're unable to stop the bleeding with no limp after 15 minutes if he had blood running down the back your throat, if you have trouble breathing, or any other concerning signs and symptoms from your standpoint.
== END 2016-12-24 19:38 | disposition home or self-care (01) ==
LOC: C.EDB 18:03 → C.EDA 19:38
DX: R04.0 Epistaxis (principal); E27.1 Primary adrenocortical insufficiency; N17.9 Acute kidney failure, unspecified; Z80.9 Family history of malignant neoplasm, unspecified; Z83.3 Family history of diabetes mellitus; Z82.49 Family history of ischemic heart disease and other diseases of the circulatory system; F17.210 Nicotine dependence, cigarettes, uncomplicated; Z79.899 Other long term (current) drug therapy

== ENCOUNTER 2017-01-02 14:30 | Emergency (ER) | payer OTHER ==
[~2017-01-02] VITALS: Ht 177.8 cm; Wt 72.0 kg
[2017-01-02 14:37] VITALS: TEMP 37.2; Ht 177.8 cm; Wt 72.0 kg
[2017-01-02] MEDS ORDERED: HYDROCORTISONE SOD SUCCINATE 100 MG/2 ML VIAL IV STA (14:51)
[2017-01-02] MEDS ORDERED: SODIUM CHLORIDE 0.9% 1000ML 1,000 ML IV STA (14:51)
[2017-01-02 15:08] LABS: BASO % 0.2 %; BASO ABS # 0.02 K/uL (0-0.2); COMPLETE YES; EOS % 3.5 %; HEMATOCRIT 35.4 % (42-52); IG% 0.1 %; LYMPH % 27.6 %; LYMPH ABS # 2.21 K/uL (1.2-3.4); MEAN CELL VOLUME 84.3 fL (80-100); MEAN CORPUSCULAR HGB CONC 34.5 g/dl (32-36); MEAN PLATELET VOLUME 8.4 fL (7.4-10.4); MONO % 5.4 %; NEUT % 63.2 %; PLATELET COUNT 258 K/uL (130-400); WHITE BLOOD COUNT 8.02 K/uL (4.8-10.8)
[2017-01-02] MEDS ORDERED: HYOSCYAMINE SULFATE 0.125 MG SL TAB SL STA (15:27)
[2017-01-02 15:32] LABS: INR 1.1 (0.9-1.1); PARTIAL THROMBOPLASTIN RATIO 1.1; PROTHROMBIN TIME (PATIENT) 11.4 SECONDS (9.0-12.0)
[2017-01-02 15:40] LABS: BUN/CREATININE RATIO 13.4 (10-20); CALCIUM 8.6 mg/dl (8.5-10.1)
[2017-01-02 15:41] LABS: THYROID STIMULATING HORMONE 7.4 uIu/ml (0.300-4.500)
[2017-01-02 15:45] LABS: POTASSIUM 4.4 mmol/L (3.5-5.1)
[2017-01-02 15:49] LABS: MAGNESIUM 2.1 mg/dl (1.8-2.4)
[2017-01-02 16:08] LABS: URINE APPEARANCE CLEAR (CLEAR); URINE BILIRUBIN NEG (NEG); URINE COLOR YELLOW; URINE NITRITE NEG (NEG); URINE PH 7.5 (4.5-7.5); URINE SPECIFIC GRAVITY 1.015 (1.000-1.030); UROBILINOGEN NEG (NEG)
[2017-01-02 16:09] LABS: MANUAL MICROSCOPIC REQUIRED? NO; REVIEW REQ? NO
[2017-01-02] MEDS ORDERED: ONDA4TAB10 SL (16:17)
[2017-01-02 16:41] VITALS: BP 106/55; PULSE 60; O2SAT 99
--- NOTE | 2017-01-02 18:30 | EMERGENCY ROOM VISIT NOTE ---
History Report prepared by Cristela: Alayna Corona Under the Supervision of: Dr. David Seth M.D. First contact with patient: 14:45 Chief Complaint: GI ASSESSMENT Stated Complaint: VOMITING,DIARRHEA Nursing Triage Summary: Pt was taking hydrocortisone for his Addisons, but "I can't keep down, it's makes my stomach cramp over and over and I eventually throw it up." Hasn't taken the hydrocortisone since Tuesday morning, noticed his skin getting darker. Having left kindey pain and hands are starting to shake. Concerned his potassium is high again. History of Present Illness The patient is a 31 year old male who presents to the Emergency Room for a GI assessment. The patient was just diagnosed with adrenal insufficiency on December 17. He was taking hydrocortisone but states that he has not taken it for 6 days because it "rips my stomach up." He states that the hydrocortisone gives him stomach cramps and he gets nauseated and eventually vomits. The patient states that he starting to feel sick again similar to when he was in the hospital on December 17. He states that his symptoms are similar, but less severe than they were at that time and he is starting to get concerned. He has had diarrhea for the past 4 days. He notes that his skin is starting to darken and his hands are shaky. The patient reports left sided flank pain that he rates as a 6/10 in severity. 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 He also notes that he has been urinating frequently, but just small amounts at a time, and his urine is darker than usual. He denies melena, hematochezia, and hematuria. He denies any recent antibiotic usage. Source of History: patient Onset: [employer] Position: abdomen Symptom Intensity: 6/10 Quality: cramping Timing: worsening Modifying Factors (Worsening): other (medication noncompliance) Associated Symptoms: + nausea, + vomiting, + diarrhea, + urinary symptoms ( increased frequency; denies hematuria), No melena, No hematochezia Note: Pt's skin is darkening and his hands are shaky. Pt notes left sided flank pain. Review of Systems See HPI for pertinent positives & negatives. A total of 10 systems reviewed and were otherwise negative. Past Medical & Surgical Medical Problems: (1) ARF (acute renal failure) (2) No active medical problems Family History Cancer Diabetes mellitus FH: heart disease Social History Smoking Status: Current Every Day Smoker Alcohol Use: occasionally Marital Status: single Occupation Status: employed Current/Historical Medications Scheduled Bupropion (Wellbutrin Sr), 150 MG PO QAM Fludrocortisone Acetate (Fludrocortisone Acetate), 0.1 MG PO QAM Hydrocortisone (Cortef), 20 MG PO QAM Hydrocortisone (Cortef), 10 MG PO DAILY@1500 Omeprazole (Prilosec), 40 MG PO DAILY Ondasetron Odt (Zofran Odt), 4 MG SL Q6H Quetiapine Fumarate (Seroquel), 50 MG PO HS Scheduled PRN Ondansetron Hcl (Zofran), 4 MG PO Q6H PRN for Nausea or Vomiting Allergies Coded Allergies: No Known Allergies (Unverified , 01/02/17) Physical Exam Vital Signs Date Time Temp Pulse Resp B/P (MAP) Pulse Ox O2 Delivery O2 Flow Rate FiO2 01/02/17 16:41 60 16 106/55 99 01/02/17 14:37 37.2 84 17 111/72 97 Room Air Physical Exam Constitutional: Vital signs reviewed. Eyes: Pupils are equal round reactive to light. Conjunctiva are noninjected. ENT: Pharynx is clear without erythema or exudate. Mucous membranes are dry. Neck supple without meningeal signs. Respiratory: Clear to auscultation bilaterally. Breath sounds are equal bilaterally. Cardiovascular: Regular rate and rhythm. No rubs or gallops. GI: Soft, nondistended and nontender. Left CVA tenderness. Bowel sounds are present. Musculoskeletal: No peripheral edema. No lower extremity tenderness. Integumentary: No cyanosis. Neurological: The patient is awake and alert. No focal deficits. Psychiatric: Normal affect. Medical Decision & Procedures Laboratory Results 01/02/17 15:00 Red Blood Count 4.20, Mean Corpuscular Volume 84.3, Mean Corpuscular Hemoglobin 29.0, Mean Corpuscular Hemoglobin Concent 34.5, Mean Platelet Volume 8.4, Neutrophils (%) (Auto) 63.2, Lymphocytes (%) (Auto) 27.6, Monocytes (%) (Auto) 5.4, Eosinophils (%) (Auto) 3.5, Basophils (%) (Auto) 0.2, Neutrophils # (Auto) 5.07, Lymphocytes # (Auto) 2.21, Monocytes # (Auto) 0.43, Eosinophils # (Auto) 0.28, Basophils # (Auto) 0.02 01/02/17 15:00 Test 01/02/17 15:00 01/02/17 15:10 White Blood Count 8.02 K/uL (4.8-10.8) Red Blood Count 4.20 M/uL (4.7-6.1) Hemoglobin 12.2 g/dL (14.0-18.0) Hematocrit 35.4 % (42-52) Mean Corpuscular Volume 84.3 fL (80-100) Mean Corpuscular Hemoglobin 29.0 pg (25-34) Mean Corpuscular Hemoglobin Concent 34.5 g/dl (32-36) Platelet Count 258 K/uL (130-400) Mean Platelet Volume 8.4 fL (7.4-10.4) Neutrophils (%) (Auto) 63.2 % Lymphocytes (%) (Auto) 27.6 % Monocytes (%) (Auto) 5.4 % Eosinophils (%) (Auto) 3.5 % Basophils (%) (Auto) 0.2 % Neutrophils # (Auto) 5.07 K/uL (1.4-6.5) Lymphocytes # (Auto) 2.21 K/uL (1.2-3.4) Monocytes # (Auto) 0.43 K/uL (0.11-0.59) Eosinophils # (Auto) 0.28 K/uL (0-0.5) Basophils # (Auto) 0.02 K/uL (0-0.2) RDW Standard Deviation 40.0 fL (36.4-46.3) RDW Coefficient of Variation 13.4 % (11.5-14.5) Immature Granulocyte % (Auto) 0.1 % Immature Granulocyte # (Auto) 0.01 K/uL (0.00-0.02) Prothrombin Time 11.4 SECONDS (9.0-12.0) Prothromb Time International Ratio 1.1 (0.9-1.1) Activated Partial Thromboplast Time 28.3 SECONDS (21.0-31.0) Partial Thromboplastin Ratio 1.1 Anion Gap 7.0 mmol/L (3-11) Est Creatinine Clear Calc Drug Dose 110.0 ml/min Estimated GFR () 116.5 Estimated GFR (Non- 100.6 BUN/Creatinine Ratio 13.4 (10-20) Calcium Level 8.6 mg/dl (8.5-10.1) Magnesium Level 2.1 mg/dl (1.8-2.4) Total Bilirubin 0.5 mg/dl (0.2-1) Direct Bilirubin 0.1 mg/dl (0-0.2) Aspartate Amino Transf (AST/SGOT) 23 U/L (15-37) Alanine Aminotransferase (ALT/SGPT) 35 U/L (12-78) Alkaline Phosphatase 92 U/L (45-117) Total Protein 7.4 gm/dl (6.4-8.2) Albumin 3.9 gm/dl (3.4-5.0) Lipase 137 U/L (73-393) Thyroid Stimulating Hormone (TSH) 7.400 uIu/ml (0.300-4.500) Free Thyroxine 0.94 ng/dl (0.80-1.60) Urine Color YELLOW Urine Appearance CLEAR (CLEAR) Urine pH 7.5 (4.5-7.5) Urine Specific [place] 1.015 (1.000-1.030) Urine Protein NEG (NEG) Urine Glucose (UA) NEG (NEG) Urine Ketones NEG (NEG) Urine Occult Blood NEG (NEG) Urine Nitrite NEG (NEG) Urine Bilirubin NEG (NEG) Urine Urobilinogen NEG (NEG) Urine Leukocyte Esterase NEG (NEG) Laboratory results as reviewed by me. Medications Administered Medications (Trade) Dose Ordered Sig/Juan F Route Start Time Stop Time Status Last Admin Dose Admin Hydrocortisone Sodium Succinate (Solu-Cortef IV) 100 mg NOW STAT IV 01/02/17 14:51 01/02/17 14:54 DC 01/02/17 15:09 100 MG Sodium Chloride 1,000 ml @ 999 mls/hr Q1H1M STAT IV 01/02/17 14:51 01/02/17 15:51 DC 01/02/17 15:08 999 MLS/HR Hyoscyamine Sulfate (Levsin Tab) 0.125 mg NOW STAT SL 01/02/17 15:27 01/02/17 15:28 DC 01/02/17 15:34 0.125 MG ECG Indication: other (potential electrolyte abnormality) Rate (beats per minute): 78 Rhythm: normal sinus Findings: no acute ischemic change, no ectopy, other (no QT prolongation) ED Course 1445: The patient was evaluated in room C11B. A complete history and physical exam was performed. 1451: NSS 1000 ml @ 999 mls/hr IV, [id number] 100 mg IV 1527: Levsin 0.125 mg SL 1614: I reassessed the patient at this time. He is resting comfortably, getting fluids and drinking. I discussed the results and treatment plan with the patient and his mother. I answered all pertaining questions that they had. They expressed understanding and verbalized agreement. The patient will be discharged home and will follow-up with his PCP. Medical Decision This is a 31-year-old male who presents with vomiting, diarrhea and flank pain. Differential diagnosis includes adrenal insufficiency, adrenal crisis, UTI, pyelonephritis, strain, electrolyte abnormality, dehydration, foodborne illness. I did perform a limited focused review of portions of the patient's old chart on the electronic medical record. The patient was admitted December 17 for adrenal insufficiency, new diagnosis. He had acute renal failure and hyperkalemia as well. His CT of the abdomen showed atrophic adrenal glands. Medication Reconciliation: I attest that I have personally reviewed the patient' s current medication list. Blood Pressure Screening: Patient was found to have normal blood pressure on screening and does not require follow-up. I did evaluate the patient as noted above. The patient is presenting with symptoms similar to when he was diagnosed with [place]'s disease, although he states it is much less severe. He was concerned because he has not been taking his steroids for the past 6 days. IV access was established. I did treat the patient immediately with Solu-Cortef IV. He was also given a liter normal saline IV. He was also given Levsin. I did order and personally review the patient's 12-lead EKG as described above. There were no signs of electrolyte abnormalities such as hyperkalemia. I did order and review the patient's blood work as noted in the electronic medical record. His labs are unremarkable. He does not have renal failure, hypokalemia or hyponatremia. I did reassess the patient. He is feeling better and able to take by mouth. I did recommend he talk to his doctor about his difficulty tolerating his steroids. He was discharged home with a prescription for Zofran. Impression Primary Impression: Vomiting and diarrhea Additional Impressions: [place]assaic's disease Left flank pain Scribe Attestation The scribe's documentation has been prepared under my direct and personally reviewed by me in its entirety. I confirm that the note above accurately reflects all work, treatment, procedures, and medical decision making performed by me. Departure Information Dispostion Home / Self-Care Prescriptions Ondasetron Odt (ZOFRAN ODT) 4 Mg Tab 4 MG SL Q6H for Nausea, #10 TAB Prov: David Seth M.D. 01/02/17 Referrals No Doctor, Assigned (PCP) Forms HOME CARE DOCUMENTATION FORM, IMPORTANT VISIT INFORMATION Patient Instructions My [facility] Additional Instructions You have been examined and treated today on an emergency basis only. This is not a substitute for, or an effort to provide, complete comprehensive medical care. It is impossible to recognize and treat all injuries or illnesses in a single emergency department visit. It is therefore important that you follow up closely with your physician. Call as soon as possible for an appointment. Return for worsening symptoms or if you develop fever, inability to keep down fluids, or any other concerning symptoms. Problem Qualifiers
== END 2017-01-02 16:42 | disposition home or self-care (01) ==
LOC: C.EDB 14:32 → C.EDC 16:42
DX: R11.10 Vomiting, unspecified (principal); R19.7 Diarrhea, unspecified; E27.1 Primary adrenocortical insufficiency; R10.30 Lower abdominal pain, unspecified; F17.200 Nicotine dependence, unspecified, uncomplicated; Z79.899 Other long term (current) drug therapy; Z80.9 Family history of malignant neoplasm, unspecified; Z83.3 Family history of diabetes mellitus; Z82.49 Family history of ischemic heart disease and other diseases of the circulatory system

== ENCOUNTER 2017-01-26 13:21 | Emergency (ER) | payer OTHER ==
[~2017-01-26] VITALS: Ht 177.8 cm; Wt 73.0 kg
[~2017-01-26 13:21] MED LIST changes: +FLR1 PO; -FLUD0.1T PO; +ONDA4TAB10 SL
[2017-01-26 13:25] VITALS: TEMP 37.1; Ht 177.8 cm; Wt 73.0 kg
[2017-01-26] MEDS ORDERED: SODIUM CHLORIDE 0.9% 1000ML 1,000 ML IV STA (14:32)
[2017-01-26] MEDS ORDERED: HYDROCORTISONE SOD SUCCINATE 100 MG/2 ML VIAL IV STA (14:32)
[2017-01-26 15:00] LABS: BASO % 0.4 %; BASO ABS # 0.02 K/uL (0-0.2); COMPLETE YES; EOS % 1.1 %; HEMATOCRIT 37.7 % (42-52); IG% 0.2 %; LYMPH % 21.3 %; LYMPH ABS # 1.13 K/uL (1.2-3.4); MEAN CELL VOLUME 85.5 fL (80-100); MEAN CORPUSCULAR HEMOGLOBIN 30.2 pg (25-34); MEAN CORPUSCULAR HGB CONC 35.3 g/dl (32-36); MEAN PLATELET VOLUME 9.2 fL (7.4-10.4); MONO % 5.3 %; NEUT % 71.7 %; PLATELET COUNT 320 K/uL (130-400); RED BLOOD COUNT 4.41 M/uL (4.7-6.1); WHITE BLOOD COUNT 5.31 K/uL (4.8-10.8)
[2017-01-26 15:19] LABS: BUN/CREATININE RATIO 11.7 (10-20); CALCIUM 9.4 mg/dl (8.5-10.1); CREATININE 0.98 mg/dl (0.60-1.40); POTASSIUM 4.3 mmol/L (3.5-5.1)
[2017-01-26 15:27] LABS: URINE APPEARANCE CLEAR (CLEAR); URINE BILIRUBIN NEG (NEG); URINE COLOR YELLOW; URINE NITRITE NEG (NEG); URINE PH 7.5 (4.5-7.5); URINE SPECIFIC GRAVITY 1.013 (1.000-1.030); UROBILINOGEN NEG (NEG)
[2017-01-26 15:32] LABS: MANUAL MICROSCOPIC REQUIRED? NO; REVIEW REQ? NO
[2017-01-26] MEDS ORDERED: ACETAMINOPHEN 325 MG TAB PO STA (15:38)
[2017-01-26 15:48] LABS: LYME DISEASE AB IGG NEG (NEG)
[2017-01-26 15:50] LABS: LYME DISEASE AB IGM EQUIVOCAL (NEG)
[2017-01-26] MEDS ORDERED: AMOXICILLIN 250 MG CAP PO STA (15:59)
[2017-01-26] MEDS ORDERED: ONDA4TAB10 SL (16:02)
[2017-01-26] MEDS ORDERED: AMOX500C3 PO (16:02)
[2017-01-26 16:30] VITALS: BP 110/71; PULSE 67; O2SAT 98
--- NOTE | 2017-01-26 18:41 | EMERGENCY ROOM VISIT NOTE ---
History Report prepared by Cristela: Nel Ho Under the Supervision of: Dr. David Seth M.D. First contact with patient: 14:25 Chief Complaint: OTHER COMPLAINT Stated Complaint: ADDISONS DISEASE History of Present Illness The patient is a 31 year old male who presents to the Emergency Room with complaints of an episode of Dukes's disease flare up beginning 2 days prior to arrival. 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 He notes nausea, vomiting, diarrhea and muscle aches. He feels fatigued and has joint pain. The patient states that these symptoms are similar to his Dukes's disease flare ups he has experienced before. The patient vomited once yesterday and has not today. He notes his diarrhea is very watery. He has had multiple episodes. The patient denies blood in his stool. The patient denies recent tick bites, fevers, antibiotic use or recent foreign traveling. 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 A total of 10 systems reviewed and were otherwise negative. Past Medical & Surgical Medical Problems: (1) ARF (acute renal failure) (2) No active medical problems Family History Cancer Diabetes mellitus FH: heart disease Social History Smoking Status: Current Every Day Smoker Alcohol Use: occasionally Marital Status: single Occupation Status: employed Current/Historical Medications Scheduled Amoxicillin (Amoxil), 500 MG PO TID Bupropion (Wellbutrin Sr), 150 MG PO QAM Fludrocortisone Acetate (Fludrocortisone Acetate), 0.1 MG PO QAM Hydrocortisone (Cortef), 20 MG PO QAM Hydrocortisone (Cortef), 10 MG PO DAILY@1500 Omeprazole (Prilosec), 40 MG PO DAILY Ondasetron Odt (Zofran Odt), 4 MG SL Q6H Ondasetron Odt (Zofran Odt), 4 MG SL Q6H Quetiapine Fumarate (Seroquel), 50 MG PO HS Scheduled PRN Ondansetron Hcl (Zofran), 4 MG PO Q6H PRN for Nausea or Vomiting Allergies Coded Allergies: No Known Allergies (Unverified , 01/26/17) Physical Exam Vital Signs Date Time Temp Pulse Resp B/P (MAP) Pulse Ox O2 Delivery O2 Flow Rate FiO2 01/26/17 16:30 67 15 110/71 98 01/26/17 15:29 70 115/68 99 Room Air 01/26/17 13:25 37.1 77 18 114/73 98 Room Air Physical Exam Constitutional: Vital signs reviewed. Eyes: Pupils are equal round reactive to light. Conjunctiva are noninjected. ENT: Pharynx is clear without erythema or exudate. Mucous membranes are dry. Neck supple without meningeal signs. Respiratory: Clear to auscultation bilaterally. Breath sounds are equal bilaterally. Cardiovascular: Regular rate and rhythm. No rubs or gallops. GI: Soft, nondistended and nontender. Bowel sounds are present. Musculoskeletal: No peripheral edema. No lower extremity tenderness. No joint swelling or tenderness. Integumentary: No cyanosis. Neurological: The patient is awake and alert. No focal deficits. Psychiatric: Normal affect. Medical Decision & Procedures Laboratory Results 01/26/17 14:20 Red Blood Count 4.41, Mean Corpuscular Volume 85.5, Mean Corpuscular Hemoglobin 30.2, Mean Corpuscular Hemoglobin Concent 35.3, Mean Platelet Volume 9.2, Neutrophils (%) (Auto) 71.7, Lymphocytes (%) (Auto) 21.3, Monocytes (%) (Auto) 5.3, Eosinophils (%) (Auto) 1.1, Basophils (%) (Auto) 0.4, Neutrophils # (Auto) 3.81, Lymphocytes # (Auto) 1.13, Monocytes # (Auto) 0.28, Eosinophils # (Auto) 0.06, Basophils # (Auto) 0.02 01/26/17 14:20 Test 01/26/17 14:20 01/26/17 15:00 White Blood Count 5.31 K/uL (4.8-10.8) Red Blood Count 4.41 M/uL (4.7-6.1) Hemoglobin 13.3 g/dL (14.0-18.0) Hematocrit 37.7 % (42-52) Mean Corpuscular Volume 85.5 fL (80-100) Mean Corpuscular Hemoglobin 30.2 pg (25-34) Mean Corpuscular Hemoglobin Concent 35.3 g/dl (32-36) Platelet Count 320 K/uL (130-400) Mean Platelet Volume 9.2 fL (7.4-10.4) Neutrophils (%) (Auto) 71.7 % Lymphocytes (%) (Auto) 21.3 % Monocytes (%) (Auto) 5.3 % Eosinophils (%) (Auto) 1.1 % Basophils (%) (Auto) 0.4 % Neutrophils # (Auto) 3.81 K/uL (1.4-6.5) Lymphocytes # (Auto) 1.13 K/uL (1.2-3.4) Monocytes # (Auto) 0.28 K/uL (0.11-0.59) Eosinophils # (Auto) 0.06 K/uL (0-0.5) Basophils # (Auto) 0.02 K/uL (0-0.2) RDW Standard Deviation 42.3 fL (36.4-46.3) RDW Coefficient of Variation 13.5 % (11.5-14.5) Immature Granulocyte % (Auto) 0.2 % Immature Granulocyte # (Auto) 0.01 K/uL (0.00-0.02) Anion Gap 9.0 mmol/L (3-11) Est Creatinine Clear Calc Drug Dose 113.8 ml/min Estimated GFR () 119.4 Estimated GFR (Non- 103.0 BUN/Creatinine Ratio 11.7 (10-20) Calcium Level 9.4 mg/dl (8.5-10.1) Total Bilirubin 0.6 mg/dl (0.2-1) Direct Bilirubin 0.1 mg/dl (0-0.2) Aspartate Amino Transf (AST/SGOT) 17 U/L (15-37) Alanine Aminotransferase (ALT/SGPT) 23 U/L (12-78) Alkaline Phosphatase 103 U/L (45-117) Total Protein 7.8 gm/dl (6.4-8.2) Albumin 4.4 gm/dl (3.4-5.0) Lipase 114 U/L (73-393) Lyme Disease IgG Antibody NEG (NEG) Urine Color YELLOW Urine Appearance CLEAR (CLEAR) Urine pH 7.5 (4.5-7.5) Urine Specific [place] 1.013 (1.000-1.030) Urine Protein NEG (NEG) Urine Glucose (UA) NEG (NEG) Urine Ketones NEG (NEG) Urine Occult Blood NEG (NEG) Urine Nitrite NEG (NEG) Urine Bilirubin NEG (NEG) Urine Urobilinogen NEG (NEG) Urine Leukocyte Esterase NEG (NEG) Laboratory results as reviewed by me. Medications Administered Medications (Trade) Dose Ordered Sig/Juan F Route Start Time Stop Time Status Last Admin Dose Admin Sodium Chloride 1,000 ml @ 999 mls/hr Q1H1M STAT IV 01/26/17 14:32 01/26/17 15:32 DC 01/26/17 14:38 999 MLS/HR Hydrocortisone Sodium Succinate (Solu-Cortef IV) 100 mg NOW STAT IV 01/26/17 14:32 01/26/17 14:34 DC 01/26/17 14:49 100 MG Amoxicillin (Amoxil Cap) 500 mg NOW STAT PO 01/26/17 15:59 01/26/17 16:00 DC 01/26/17 16:04 500 MG ED Course 1427: The patient was evaluated in room C6. A complete history and physical exam was performed. 1432: Solu-Cortef IV 100 mg IV, Sodium Chloride 1,000 ml @ 999 mls/hr IV. 1538: Tylenol Tab 650 mg PO. 1547: I discussed test results with the patient. He declines nausea medication. Waiting for lab to be complete. 1558: I discussed test results with the patient. I explained Lyme test results. I discussed pain for joints. He will be given Amoxicillin. 1559: Amoxil Cap 500 mg PO. 1605: Upon reevaluation, the patient appeared to have improvement of his symptoms. I discussed tonight's findings with him. He verbalized agreement of the treatment plan. He was discharged home. Medical Decision This is a 31-year-old male who presents with vomiting, diarrhea, joint pain and generalized fatigue. Differential diagnosis includes food borne illness, gastroenteritis, dehydration, electrolyte abnormality, adrenal crisis, lung disease. I did perform a limited focused review of portions of the patient's old chart on the electronic medical record. The patient was seen by myself on January 02 for vomiting, diarrhea and feeling unwell. He was given Hydrocortisone and normal saline. He was discharged from with [facility]. Medication Reconciliation: I attest that I have personally reviewed the patient' s current medication list. Blood Pressure Screening: Patient was found to have normal blood pressure on screening and does not require follow-up. I did evaluate the patient as noted above. IV access was established. I did treat patient with IV Solu-Cortef. He is also given normal saline IV. He declined any antinausea medications and states he has not vomited in the past day. I did order and personally review the patient's urinalysis as described above. I did order and review the patient's blood work as noted in the electronic medical record. His anemia is improved. His white blood cell count is not elevated. No electrolyte abnormalities suggestive of adrenal crisis. Lyme IgM is equivocal. Given he has joint pain and fatigued I did recommend treatment with antibiotics. He states he is very sensitive to antibiotics and that they upset his stomach. I therefore treated him with amoxicillin. He was discharged with a prescription for 21 days of amoxicillin and Zofran as needed. He was advised follow closely with his doctor. He was given return instructions as outlined below. Impression Primary Impression: Lyme disease Additional Impressions: Vomiting and diarrhea Dehydration Dukes's disease Scribe Attestation The scribe's documentation has been prepared under my direct and personally reviewed by me in its entirety. I confirm that the note above accurately reflects all work, treatment, procedures, and medical decision making performed by me. Departure Information Dispostion Home / Self-Care Prescriptions Ondasetron Odt (ZOFRAN ODT) 4 Mg Tab 4 MG SL Q6H for Nausea, #10 TAB Prov: David Seth M.D. 01/26/17 Amoxicillin (AMOXIL) 500 Mg Cap 500 MG PO TID for 21 Days, #63 CAP Prov: David Seth M.D. 01/26/17 Referrals No Doctor, Assigned (PCP) Forms HOME CARE DOCUMENTATION FORM, IMPORTANT VISIT INFORMATION, WORK / SCHOOL INSTRUCTIONS Patient Instructions ED Lyme Disease, My [facility] Additional Instructions You have been examined and treated today on an emergency basis only. This is not a substitute for, or an effort to provide, complete comprehensive medical care. It is impossible to recognize and treat all injuries or illnesses in a single emergency department visit. It is therefore important that you follow up closely with your physician. Call as soon as possible for an appointment. Return for worsening symptoms or if you develop fever, chest pain, shortness of breath, severe headaches, or any other concerning symptoms. Problem Qualifiers
== END 2017-01-26 16:10 | disposition home or self-care (01) ==
LOC: C.EDB 13:24 → C.EDC 16:10
DX: A69.20 Lyme disease, unspecified (principal); E86.0 Dehydration; R11.10 Vomiting, unspecified; R19.7 Diarrhea, unspecified; E27.1 Primary adrenocortical insufficiency

== ENCOUNTER → 2017-11-28 | Outpatient (CLI) | payer OTHER ==
[~2017-11-28] MED LIST changes: -FLR1 PO; +FLUD0.1T PO; -ONDA4TAB10 SL; -ONDA4TAB46 PO
[2017-11-28 09:40] LABS: HEMATOCRIT 39.7 % (42-52); HEMOGLOBIN 14.6 g/dL (14.0-18.0); MEAN CELL VOLUME 85.7 fL (80-100); MEAN CORPUSCULAR HEMOGLOBIN 31.5 pg (25-34); MEAN CORPUSCULAR HGB CONC 36.8 g/dl (32-36); PLATELET COUNT 302 K/uL (130-400); RED CELL DISTRIBUTION WIDTH CV 12.3 % (11.5-14.5); RED CELL DISTRIBUTION WIDTH SD 38.2 fL (36.4-46.3); WHITE BLOOD COUNT 7.94 K/uL (4.8-10.8)
[2017-11-28 10:16] LABS: ALBUMIN 4.2 gm/dl (3.4-5.0); ALT/SGPT 21 U/L (12-78); AST/SGOT 21 U/L (15-37); BLOOD UREA NITROGEN 11 mg/dl (7-18); CALCIUM 8.8 mg/dl (8.5-10.1); CARBON DIOXIDE 30 mmol/L (21-32); GLUCOSE 80 mg/dl (70-99); POTASSIUM 3.2 mmol/L (3.5-5.1); SODIUM 137 mmol/L (136-145); TOTAL PROTEIN 7.5 gm/dl (6.4-8.2)
[2017-11-28 10:24] LABS: ALKALINE PHOSPHATASE 92 U/L (45-117)
== END | disposition home or self-care (01) ==
LOC: C.LAB1850 08:41
PROVIDERS: ATTEND Family Medicine
DX: E27.1 Primary adrenocortical insufficiency (principal)

== ENCOUNTER 2017-12-09 18:34 | Emergency (ER) | payer OTHER ==
[~2017-12-09] VITALS: Ht 175.3 cm; Wt 85.6 kg
[2017-12-09 18:39] VITALS: TEMP 37; Ht 175.3 cm; Wt 85.6 kg
[2017-12-09] MEDS ORDERED: ONDANSETRON INJ 2 MG/ML 2 ML VIAL IV STA (18:55)
[2017-12-09] MEDS ORDERED: MoRPHine SULFATE 4 MG/ML 1 ML CARP\\VIAL IV STA (18:55)
[2017-12-09] MEDS ORDERED: SODIUM CHLORIDE 0.9% 1000ML 1,000 ML IV STA (18:55)
[2017-12-09] MEDS ORDERED: KETOROLAC TROMETHAMINE 30 MG/ML VIAL IV STA (18:55)
[2017-12-09] MEDS ORDERED: CLINDAMYCIN IV 600 MG in DEXTROSE 5% 50ML 50 ML IV ONE (19:00)
[2017-12-09] MEDS ORDERED: CLINDAMYCIN 600 MG/54 ML D5W IV ONE (19:00)
[2017-12-09] MEDS ORDERED: OPTIRAY 320 IV PRN (19:15)
[2017-12-09 19:23] LABS: BASO % 0.2 %; BASO ABS # 0.03 K/uL (0-0.2); EOS % 1.9 %; EOS ABS # 0.23 K/uL (0-0.5); HEMATOCRIT 39.6 % (42-52); HEMOGLOBIN 14.5 g/dL (14.0-18.0); IG# 0.02 K/uL (0.00-0.02); LYMPH % 20.1 %; LYMPH ABS # 2.42 K/uL (1.2-3.4); MEAN CELL VOLUME 86.3 fL (80-100); MEAN CORPUSCULAR HEMOGLOBIN 31.6 pg (25-34); MEAN CORPUSCULAR HGB CONC 36.6 g/dl (32-36); MONO % 8.8 %; MONO ABS # 1.06 K/uL (0.11-0.59); NEUT % 68.8 %; NEUT ABS # 8.27 K/uL (1.4-6.5); PLATELET COUNT 222 K/uL (130-400); RED CELL DISTRIBUTION WIDTH CV 12.3 % (11.5-14.5); RED CELL DISTRIBUTION WIDTH SD 38.8 fL (36.4-46.3); WHITE BLOOD COUNT 12.03 K/uL (4.8-10.8)
[2017-12-09 19:44] LABS: CALCIUM 8.7 mg/dl (8.5-10.1); CREATININE 1.04 mg/dl (0.60-1.40); POTASSIUM 3.2 mmol/L (3.5-5.1)
[2017-12-09] MEDS ORDERED: QUET5TAB PO (20:37)
[2017-12-09] MEDS ORDERED: HYD10 PO (20:37)
[2017-12-09] MEDS ORDERED: FLUD0.1T10 PO (20:37)
--- NOTE | 2017-12-09 20:47 | DIAGNOSTIC IMAGING REPORT ---
MAXILLOFACIAL CT WITH CONTRAST CLINICAL HISTORY: Left facial swelling. COMPARISON STUDY: Head CT December 17, 2016. TECHNIQUE: A maxillofacial CT was performed following intravenous injection of 108 cc of Optiray 320 IV. Sagittal and coronal reconstructions were viewed. FINDINGS: Visualized portions of the intracranial contents are unremarkable. Orbits are unremarkable. Mastoid air cells are clear. There is minimal mucosal thickening of the sinuses. There is moderate left facial infiltration. There is no fluid collection to suggest an abscess. There are numerous dental cavities as well as multiple absent teeth. There is a periapical lucency of the left mandibular first bicuspid, tooth #21. A few prominent left cervical lymph nodes are likely reactive. IMPRESSION: 1. Moderate left facial infiltration suggestive of cellulitis. No abscess. This favors an infectious process, likely odontogenic in etiology. 2. Numerous dental cavities and a small periapical lucency of the left mandibular first bicuspid. Numerous absent teeth. Electronically signed by: Silvino Sanderson M.D. 12/09/2017 8:45 PM Dictated Date/Time: 12/09/2017 8:35 PM
[2017-12-09] MEDS ORDERED: DEXAMETHASONE **PF** INJ 10 MG/ML VIAL IV ONE (21:00)
[2017-12-09] MEDS ORDERED: AMOX875T PO (21:08)
[2017-12-09 21:17] VITALS: BP 119/67; PULSE 80; O2SAT 100
--- NOTE | 2017-12-09 22:56 | EMERGENCY ROOM VISIT NOTE ---
History Report prepared by Scribe: Brianna Juarez Under the Supervision of: Dr. Lars Arvizu D.O. First contact with patient: 18:42 Chief Complaint: DENTAL PAIN Stated Complaint: FACE Nursing Triage Summary: Patient ambulatory to triage with an upright and steady gait, states "I went to the Urgent Care last night for an abcessed tooth. I have been dealing with it for 2-3 days now. They started me on Amoxicillin. I have had two doses. The swelling has gotten much worse. I am having some trouble breathing through my nose because my left nostril is swollen." Patient reports the left front tooth is abcessed. Patient's upper lip and left face are edematous. History of Present Illness The patient is a 32 year old male who presents to the Emergency Room with complaints of worsening left upper dental pain for the past 2 to 3 days. He rates his pain as a 6/10 in severity. He describes the pain as a dull constant ache. It originates from his upper front teeth and radiates upwards. Anything that touches his upper teeth or face makes the pain worse. Eating and palpation worsen his pain. He states he went to an urgent care clinic last night and was given Amoxicillin, which he has taken 2 doses of so far. He believes the swelling has gotten worse since starting the Amoxicillin. He reports he is having trouble breathing through his left nostril because of swelling. Pt denies headache, change in vision, fevers, chest pain, shortness of breath, nausea, vomiting, diarrhea, pain with urination, and melena. No pain with range of motion of the his eye. Source of History: patient Onset: 3 days APPRENTICE COSMETOLOGIST Position: teeth (left upper tooth) Symptom Intensity: 6/10 Timing: worsening Modifying Factors (Worsening): eating, other (palpation) Modifying Factors (Relieving): other (Amoxicillin) Associated Symptoms: No fevers, No headache, No chest pain, No SOB, No nausea, No vomiting, No melena, No diarrhea, No urinary symptoms Review of Systems See HPI for pertinent positives & negatives. A total of 10 systems reviewed and were otherwise negative. Past Medical & Surgical Medical Problems: (1) ARF (acute renal failure) (2) No active medical problems Family History Cancer Diabetes mellitus FH: heart disease Social History Smoking Status: Never Smoker Alcohol Use: occasionally Marital Status: single Occupation Status: employed Current/Historical Medications Scheduled Amoxicillin & Pot Clavulanate (Augmentin 875-125 mg), 875 MG PO BID Fludrocortisone Acetate (Florinef), 0.1 MG PO QAM Hydrocortisone (Cortef), 10 MG PO QAM Quetiapine Fumarate (Seroquel), 50 MG PO HS Allergies Coded Allergies: No Known Allergies (Unverified , 12/09/17) Physical Exam Vital Signs Date Time Temp Pulse Resp B/P (MAP) Pulse Ox O2 Delivery O2 Flow Rate FiO2 12/09/17 21:17 80 18 119/67 100 Room Air 12/09/17 20:07 89 18 130/69 96 Room Air 12/09/17 18:39 37.0 91 18 137/88 98 Room Air Physical Exam GENERAL: Sitting up in bed, alert, well appearing, well nourished, no distress, non-toxic EYE EXAM: normal conjunctiva. FACE: Swelling of the left upper lip tracking to the left mid cheek bone. No erythema around the eye. No pain with range of motion of the eye. OROPHARYNX: no exudate, buccal mucosa, and tongue normal and mucous membranes are moist poor dentition. Redness of both his shift left upper central incisors. NECK: supple, no nuchal rigidity, no adenopathy, non-tender LUNGS: Clear to auscultation. Normal chest wall mechanics HEART: no murmurs, S1 normal and S2 normal ABDOMEN: abdomen soft, non-tender, normo-active bowel sounds, no masses, no rebound or guarding. BACK: Back is symmetrical on inspection and there is no deformity, no midline tenderness, no CVA tenderness. SKIN: no rashes and no bruising UPPER EXTREMITIES: upper extremities are grossly normal. LOWER EXTREMITIES: No pitting edema. NEURO EXAM: Normal sensorium, cranial nerves II-XII grossly intact, normal speech, no gross weakness of arms, no gross weakness of legs. Gross sensation intact. Medical Decision & Procedures ER Provider Diagnostic Interpretation: Radiology results as stated below per my review and the radiologist's interpretation: MAXILLOFACIAL CT WITH CONTRAST CLINICAL HISTORY: Left facial swelling. COMPARISON STUDY: Head CT December 17, 2016. TECHNIQUE: A maxillofacial CT was performed following intravenous injection of 108 cc of Optiray 320 IV. Sagittal and coronal reconstructions were viewed. FINDINGS: Visualized portions of the intracranial contents are unremarkable. Orbits are unremarkable. Mastoid air cells are clear. There is minimal mucosal thickening of the sinuses. There is moderate left facial infiltration. There is no fluid collection to suggest an abscess. There are numerous dental cavities as well as multiple absent teeth. There is a periapical lucency of the left mandibular first bicuspid, tooth #21. A few prominent left cervical lymph nodes are likely reactive. IMPRESSION: 1. Moderate left facial infiltration suggestive of cellulitis. No abscess. This favors an infectious process, likely odontogenic in etiology. 2. Numerous dental cavities and a small periapical lucency of the left mandibular first bicuspid. Numerous absent teeth. Electronically signed by: Silvino Sanderson M.D. 12/09/2017 8:45 PM Laboratory Results 12/09/17 19:07 Red Blood Count 4.59, Mean Corpuscular Volume 86.3, Mean Corpuscular Hemoglobin 31.6, Mean Corpuscular Hemoglobin Concent 36.6, Mean Platelet Volume 9.0, Neutrophils (%) (Auto) 68.8, Lymphocytes (%) (Auto) 20.1, Monocytes (%) (Auto) 8.8, Eosinophils (%) (Auto) 1.9, Basophils (%) (Auto) 0.2, Neutrophils # (Auto) 8.27, Lymphocytes # (Auto) 2.42, Monocytes # (Auto) 1.06, Eosinophils # (Auto) 0.23, Basophils # (Auto) 0.03 12/09/17 19:07 Test 12/09/17 19:07 White Blood Count 12.03 K/uL (4.8-10.8) Red Blood Count 4.59 M/uL (4.7-6.1) Hemoglobin 14.5 g/dL (14.0-18.0) Hematocrit 39.6 % (42-52) Mean Corpuscular Volume 86.3 fL (80-100) Mean Corpuscular Hemoglobin 31.6 pg (25-34) Mean Corpuscular Hemoglobin Concent 36.6 g/dl (32-36) Platelet Count 222 K/uL (130-400) Mean Platelet Volume 9.0 fL (7.4-10.4) Neutrophils (%) (Auto) 68.8 % Lymphocytes (%) (Auto) 20.1 % Monocytes (%) (Auto) 8.8 % Eosinophils (%) (Auto) 1.9 % Basophils (%) (Auto) 0.2 % Neutrophils # (Auto) 8.27 K/uL (1.4-6.5) Lymphocytes # (Auto) 2.42 K/uL (1.2-3.4) Monocytes # (Auto) 1.06 K/uL (0.11-0.59) Eosinophils # (Auto) 0.23 K/uL (0-0.5) Basophils # (Auto) 0.03 K/uL (0-0.2) RDW Standard Deviation 38.8 fL (36.4-46.3) RDW Coefficient of Variation 12.3 % (11.5-14.5) Immature Granulocyte % (Auto) 0.2 % Immature Granulocyte # (Auto) 0.02 K/uL (0.00-0.02) Anion Gap 7.0 mmol/L (3-11) Est Creatinine Clear Calc Drug Dose 111.6 ml/min Estimated GFR () 110.4 Estimated GFR (Non- 95.2 BUN/Creatinine Ratio 8.5 (10-20) Calcium Level 8.7 mg/dl (8.5-10.1) Laboratory results per my review. Medications Administered Medications (Trade) Dose Ordered Sig/Juan F Route Start Time Stop Time Status Last Admin Dose Admin Sodium Chloride 1,000 ml @ 999 mls/hr Q1H1M STAT IV 12/09/17 18:55 12/09/17 19:55 DC 12/09/17 19:14 999 MLS/HR Ondansetron HCl (Zofran Inj) 4 mg NOW STAT IV 12/09/17 18:55 12/09/17 18:56 DC 12/09/17 19:13 4 MG Ketorolac Tromethamine (Toradol Inj) 30 mg NOW STAT IV 12/09/17 18:55 12/09/17 18:56 DC 12/09/17 19:14 30 MG Morphine Sulfate (MoRPHine SULFATE INJ) 4 mg NOW STAT IV 12/09/17 18:55 12/09/17 18:56 DC 12/09/17 19:13 4 MG Clindamycin Phosphate 600 mg/ Dextrose 54 ml @ 108 mls/hr ONE ONCE IV 12/09/17 19:00 12/09/17 19:29 DC 12/09/17 19:23 108 MLS/HR Dexamethasone Sodium Phosphate (Dexamethasone Inj Pf) 10 mg NOW ONCE IV 12/09/17 21:00 12/09/17 21:01 DC 12/09/17 21:16 10 MG ED Course ED COURSE: Vital signs were reviewed and showed normal vital signs. The patients medical record was reviewed The above diagnostic studies were performed and reviewed. ED treatments and interventions as stated above. 1849: The patient was evaluated in room C2. A complete history and physical examination was performed. 1854: Morphine Sulfate 4 mg IV, Toradol 30 mg IV, Zofran 4 mg IV, NSS 1000 ml @ 999 mls/hr IV. 1899: Clindamycin Phosphate 600 mg/Dextrose 54 ml @ 108 mls/hr IV. 2054: I discussed the patients case with Dr. Lara, textile clothing and footwear mechanic. He recommends antibiotics and outpatient follow up. 2099: Dexamethasone 10 mg IV. 2129: Upon reevaluation, the patient is feeling better and ready to go home. I discussed my findings with the patient and he understands and agrees with the treatment plan. Based on the patients age, coexisting illnesses, exam and lab findings the decision to treat as an outpatient was made. The patient remained stable while under my care. The patient appeared well at the time of discharge. Medical Decision Differential diagnoses includes but is not limited to dental fracture, dental carries, and dental abscess. Patient is a 32-year-old male who presents to ER for facial swelling and pain which is been present for the past 24-48 hours. Gradually worsening. Just started amoxicillin yesterday. No fevers. No pain with range of motion of the eye. Poor dentition. CBC and BMP show mild hypokalemia. No significant leukocytosis. Vitals are stable. No signs of Kai's angina. CT of the face shows cellulitis. Patient was given a dose of IV antibiotics and steroids. Discussed with OMFS who agrees with having him follow-up as an outpatient nail see him early next week. Any other worsening signs and symptoms were explained to him at length to return to the ER. Patient was switched to Augmentin. Discussed with Pt concerning signs and symptoms to watch out for. Pt was instructed to follow up with their PCP and discussed with the patient their option to return to the ED at anytime for persistent or worsening symptoms. The appropriate anticipatory guidance and out-patient management, including indications for return to the emergency department, were explained at length to the patient and understood. Medication Reconcilliation Current Medication List: was personally reviewed by me Blood Pressure Screening Patient's blood pressure: Normal blood pressure Blood pressure disposition: Did not require urgent referral Consults Time Called: 2051 Consulting Physician: Dr. Lara, shredding specialist Returned Call: 2054 I discussed the patients case with Dr. Lara, textile clothing and footwear mechanic. He recommends antibiotics and outpatient follow up. Impression Primary Impression: Facial cellulitis Additional Impression: Dental caries Scribe Attestation The scribe's documentation has been prepared under my direction and personally reviewed by me in its entirety. I confirm that the note above accurately reflects all work, treatment, procedures, and medical decision making performed by me. Departure Information Dispostion Home / Self-Care Prescriptions Amoxicillin & Pot Clavulanate (Augmentin 875-125 mg) 1 Tab Tab 875 MG PO BID for 10 Days, TAB Prov: Lars Arvizu, DO 12/09/17 Referrals Ruel Lara,Benito.S. Forms HOME CARE DOCUMENTATION FORM, IMPORTANT VISIT INFORMATION Patient Instructions My [facility], ED Cellulitis Facial, ED Dental Abscess Facial Cellulitis Additional Instructions Please follow up with your primary care doctor with in the next 24 hours. Any worsening of your symptoms, please return to the ED immediately. This includes any fevers greater than 100.4, worsening pain, chest pain, shortness breath, persistent nausea, vomiting, unable to eat or drink, or any other concerning signs or symptoms from your standpoint. You were given medications during this visit that will inhibit your ability to drive, operate machinery and work. Please do NOT drive, operate machinery, drink alcohol or work for the next 12hrs. Please take Tylenol or Motrin as needed for pain. Please stop taking amoxicillin as previously prescribed and start taking Augmentin. Any swelling under tongue, trouble swallowing, unable to eat or drink. Please make sure you follow up with OMFS first thing next week. Problem Qualifiers
== END 2017-12-09 21:20 | disposition home or self-care (01) ==
LOC: C.EDB 18:35 → C.EDC 21:20
DX: L03.211 Cellulitis of face (principal); K02.9 Dental caries, unspecified